=== PATIENT | male | born 1930 | race Hispanic/Latino ===

== ENCOUNTER 2016-09-11 15:57 | Inpatient (IN) | payer MEDICARE ==
--- NOTE | 2016-09-11 16:06 | Emergency Department Report ---
HPI - General Time Seen by Provider: 09/11/16 16:01 - HPI HPI: This is a 86-year-old male presents to the emergency department by EMS from dialysis, where he just completed his dialysis session, with the complaint of an unresponsive episode. The patient appeared unresponsive to the dialysis staff so they started doing chest compressions on him but there is no actual report of the patient going pulseless. Once the patient began becoming slightly more responsive, EMS was there. He presents awake, verbal, with a nonrebreather on but signs of hypoxia. Other than supplement oxygen, he did not receive any treatment in route, was found to have a pulse ox in the high 70s. He is end-stage renal disease on hemodialysis on Friday, Friday and Friday. He also has history of hypertension, CHF. Patient denies any physical complaints at this time. ED Past Medical Hx - Past Medical History Hx Congestive Heart Failure: Yes Hx Renal Disease: Yes (Dialysis: , and FRI) Hx COPD: Yes Additional medical history: pacemaker/defib - Surgical History Hx Open Heart Surgery: Yes (2003) Hx Internal Defibrillator: Yes Additional Surgical History: open heart surgery (2003) - Social History Smoking Status: Current Every Day Smoker - Medications Home Medications: Home Medications Medication Instructions Recorded Confirmed Last Taken Type Amiodarone [Cordarone 200 MG TAB] 200 mg PO DAILY 12/13/13 09/11/16 12/13/13 History Aspirin EC [Aspirin Enteric Coated 81 mg PO QDAY 12/13/13 09/11/16 12/13/13 History TAB] Calcium Acetate 667 mg PO TID 12/13/13 09/11/16 12/13/13 History Carvedilol [Coreg] 6.25 mg PO BID 12/13/13 09/11/16 12/13/13 History Rosuvastatin (Nf) [Crestor] 20 mg PO QHS 12/13/13 09/11/16 12/13/13 History Solifenacin Succinate [Vesicare] 5 mg PO DAILY 12/13/13 09/11/16 12/13/13 History Tamsulosin [Flomax] 0.4 mg PO DAILY 12/13/13 09/11/16 12/13/13 History Vit B Cplx #11/FA/C/Biot/Zn Ox 1 tab PO DAILY 12/13/13 09/11/1612/13/14 History [Dialyvite with Zinc Tablet] Tiotropium [Spiriva] 18 mcg IH QDAY #1 box 12/18/13 09/11/16 Unknown Rx ED Review of Systems ROS: Stated complaint: BLANKA Other details as noted in HPI Comment: All other systems reviewed and negative Constitutional: denies: chills, fever Eyes: denies: eye pain, eye discharge, vision change ENT: denies: ear pain, throat pain Respiratory: denies: cough, shortness of breath, wheezing Cardiovascular: denies: chest pain, palpitations Gastrointestinal: denies: abdominal pain, nausea, diarrhea Genitourinary: denies: urgency, dysuria Musculoskeletal: denies: back pain, joint swelling, arthralgia Skin: denies: rash, lesions Neurological: denies: headache, paresthesias Physical Exam - Physical Exam Physical Exam: GENERAL: The patient is well-developed well-nourished. HEENT: Normocephalic. Atraumatic. Extraocular motions are intact. Patient has moist mucous membranes. Pupils equal reactive to light bilaterally. NECK: Supple. Trachea is midline. CHEST/LUNGS: Slightly coarse breath sounds throughout the chest. There is tachypnea and some supraclavicular accessory muscle use. There is some respiratory distress noted. HEART/CARDIOVASCULAR: Regular. There is mild tachycardia. There is no gallop rub or murmur. ABDOMEN: Abdomen is soft, nontender. Patient has normal bowel sounds. There is no abdominal distention. SKIN: Skin is warm and dry. NEURO: The patient is awake, alert but patient appears fatigued the patient is cooperative. The patient has no focal neurologic deficits. The patient has normal speech. MUSCULOSKELETAL: There is no tenderness or deformity. There is no limitation range of motion. There is no evidence of acute injury. There is a right upper extremity dialysis fistula with tubing still in place. - ABG Interpretation Ph: 7.322 PCO2: 69 PO2: 113 Bicarbonate: 35 Interpretation: respiratory acidosis - EJ/Peripheral Line Neck L Time Out Performed: Yes Indications: nurses unable to establis Skin Cleansed in Sterile Fashion: Yes Size: 20 Dressing Placed: Tegaderm, tape Patient Tolerated Procedure: well ED Medical Decision Making - Lab Data Result diagrams: 09/11/16 16:22 09/11/16 16:22 - EKG Data -: EKG Interpreted by Me EKG shows normal: sinus rhythm, axis (left axis deviation), intervals ( nonspecific intraventricular block), QRS complexes (Q waves to the inferior leads), ST-T waves Rate: normal - EKG Data When compared to previous EKG there are: changes noted (previous EKG looks similar but with patient's current respiratory distress he has an abnormal appearing rhythm that is probably artifact) Interpretation: other (left axis deviation, nonspecific intraventricular block, Q waves in inferior leads) - Radiology Data Radiology results: report reviewed, image reviewed interpreted by me: Chest x-ray shows some mild cardiomegaly and some pulmonary vascular congestion but no obvious pneumonia. Bilateral small pleural effusions. CT the head without contrast does not show any bleed, shift, mass or any acute process. 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 Microangiopathic ischemic microvascular disease. Ventilation perfusion scan is negative for pulmonary embolism. - Medical Decision Making 86-year-old male presents from dialysis after having an unresponsive episode and presenting and shortness of breath and some respiratory distress with some hypoxia. Patient was placed on a nonrebreather with some improvement but eventually was placed on a BiPAP machine. His ABG showed some respiratory acidosis. BiPAP numbers were changed and it repeated and he is showing improvement. Patient had elevated d-dimer so a VQ scan was done that was negative for pulmonary embolism. Chest x-ray shows some bilateral pleural effusions. Patient has an elevated d-dimer but is end-stage renal disease. Patient also has a 22,000 white count and some anemia but does not require transfusion and no obvious infection seen. Patient will be admitted to hospital for further evaluation and treatment has been accepted for admission by the hospitalist, Dr. Josue. - Differential Diagnosis COPD, asthma, pneumonia, PE, MO, CHF Critical Care Time: Yes Critical care time in (mins) excluding proc time.: 35 Critical care attestation.: If time is entered above; I have spent that time in minutes in the direct care of this critically ill patient, excluding procedure time. Critical care time spent on this patient and during his initial evaluation, multiple re-evaluations , ordering and interpretation of labs, ordering and evaluation of imaging, BiPAP management, consultation with hospitalist and discussion plain. Critical Care Time: 35 mins ED Disposition Clinical Impression: ESRD (end stage renal disease), Respiratory acidosis COPD (chronic obstructive pulmonary disease) Qualifiers: COPD type: unspecified COPD Qualified Code(s): J44.9 - Chronic obstructive pulmonary disease, unspecified Respiratory failure Qualifiers: Chronicity: unspecified Respiratory failure complication: hypoxia Qualified Code(s): J96.91 - Respiratory failure, unspecified with hypoxia Congestive heart failure (CHF) Qualifiers: Congestive heart failure type: unspecified congestive heart failure type Congestive heart failure chronicity: acute on chronic Qualified Code(s): I50.9 - Heart failure, unspecified Anemia Qualifiers: Anemia type: unspecified type Qualified Code(s): D64.9 - Anemia, unspecified Disposition: DC-09 OP ADMIT IP TO THIS HOSP Is pt being admited?: Yes Condition: Critical Time of Disposition: 21:52
--- NOTE | 2016-09-11 16:31 | Admit Criteria Form ---
Admission Criteria Documentation: RESPIRATORY FAILURE GRG Clinical Indications for Admission to Inpatient Care (Place 'X' for any and all applicable criteria): Hospital admission is needed for appropriate care of the patient because of acute respiratory failure or insufficiency as indicated by ANY ONE of the following(1)(2)(3)(4)(5)(6)(7)(8): [ ]I. Mechanical ventilation needed (acute invasive or noninvasive) [X]II. Severe ventilation deficit as indicated by ANY ONE of the following (9) [X]a) Respiratory acidosis (pH less than 7.32 and partial pressure of carbon dioxide greater than 40 mm Hg (5.3 kPa)) [X]b) Partial pressure of carbon dioxide greater than 44 mm Hg (5.9 kPa ) (new) [ ]c) Airflow measurements less than 25% of predicted (eg, peak expiratory flow rate less than 100 L/minute) [ ]d) Forced vital capacity less than 15 mL/kg of ideal body weight, or 50% decrease in vital capacity from baseline [ ]III. Noncardiac pulmonary edema not resolving with rapid emergency treatment (8) [ ]IV. Severe respiratory distress as indicated by ANY ONE of the following: [ ]a) Severe tachypnea (respiratory rate greater than 30, greater than 45 for 6-month-old, greater than 60 for ) [ ]b) Severe hypoxemia (partial pressure of oxygen less than 50 mm Hg ( 6.7 kPa) on greater than 50% oxygen or partial pressure of oxygen to FIO2 ratio less than 200) [ ]c) Mental status deterioration from respiratory disease [ ]V. Airway obstruction or inadequate protection [A](10)(11) The original [employer] content created by [employer] has been revised. The portions of the content which have been revised are identified through the use of italic text or in bold, and [facility] [employer] has neither reviewed nor approved the modified material. All other unmodified content is copyright [employer]. Please see references footnoted in the original [employer] edition 2016 Admission Criteria Met: Yes
[2016-09-11 16:36] LABS: Hemoglobin 9.9 gm/dl (11.8-15.2); Mean Corpuscular HGB Conc 31 % (32-34); Mean Corpuscular Hemoglobin 30 pg (28-32); Mean Corpuscular Volume 97 fl (84-94); Platelet Count 178 K/mm3 (140-440); Red Blood Count 3.29 M/mm3 (3.65-5.03)
[2016-09-11 16:51] LABS: INR 1.32 (0.87-1.13)
[2016-09-11 16:52] LABS: Partial Thromboplastin Time 29.7 Sec. (24.2-36.6)
[2016-09-11 16:54] LABS: Creatine Kinase MB 2.1 ng/mL (0.0-4.0)
[2016-09-11 16:55] LABS: Albumin 3.1 g/dL (3.9-5); Albumin/Globulin Ratio 1.3 %; BUN/Creatinine Ratio 5.23; Bilirubin,Total 0.5 mg/dL (0.1-1.2); Chloride 101.1 mmol/L (98-107); Potassium 3.8 mmol/L (3.6-5.0); Total Protein 5.5 g/dL (6.3-8.2)
[2016-09-11 16:56] LABS: Red Cell Distribution Width 20.7 % (13.2-15.2); White Blood Count 22.7 K/mm3 (4.5-11.0)
[2016-09-11 17:28] LABS: ISTAT Base Excess 5; ISTAT HCO3 32.9; ISTAT PCO2 79.1 (35-45); ISTAT PH 7.227 (7.35-7.45); ISTAT PO2 131 (80-105); ISTAT SO2 98; ISTAT TCO2 35
[2016-09-11 17:53] LABS: Basophils % (Manual) 0 % (0.0-1.8); Blastocytes % (Manual) 0 %; Eosinophils % (Manual) 0 % (0.0-4.3)
[2016-09-11 17:55] LABS: Anisocytosis 1+; Diff Status Complete; Elliptocytes 1+; Platelet Estimate Consistent w Auto; Poikilocytosis 1+
[2016-09-11 18:01] LABS: ISTAT Base Excess 10; ISTAT HCO3 35.8; ISTAT PCO2 69.2 (35-45); ISTAT PH 7.322 (7.35-7.45); ISTAT PO2 113 (80-105); ISTAT SO2 98; ISTAT TCO2 38
[2016-09-11] MEDS ORDERED: TYLENOL PO PRN (19:47)
[2016-09-11] MEDS ORDERED: MILK OF MAGNESIA PO PRN (19:47)
[2016-09-11] MEDS ORDERED: DULCOLAX PR PRN (19:47)
[2016-09-11] MEDS ORDERED: ZOFRAN IV PRN (19:47)
[2016-09-11] MEDS ORDERED: NACL 0.9% 1000 ML 1,000 ML IV ONE (19:52)
[2016-09-11] MEDS ORDERED: NACL 0.9% 1000 ML IV ONE (19:52)
[2016-09-11] MEDS ORDERED: SODIUM CHLORIDE FLUSH SYRINGE 10 ML IV PRN (19:54)
[2016-09-11] MEDS ORDERED: VANCOMYCIN PHARMACY TO DOSE IV SCH (20:00)
--- NOTE | 2016-09-11 20:53 | History and Physical Report ---
History of Present Illness Chief complaint: Unresponsive History of present illness: 86 YO Male with ESRD on HD(M,W,F), CHF, COPD, CAD S/P CABG, Nicotine Dependence presents to ED for evaluation. Pt unable to provide history, History taken from ED staff and patient chart. Pt became unresponsive after his dialysis session today. Dialysis staff initiated CPR, and after chest compressions the patient regained consciousness. Pt became unresponsive again, but EMS was on the scene at this time. Pt found to be hypoxemic with Sao2 in the 70's, and in respiratory distress. Pt transported to [facility] ED for evaluation and treatment. Pt seen and evaluated in ED and found to be in respiratory distress but was able to protect his airway. Pt placed on NIPPV. No reports of fever, chills, CP, Palpitaitons, Falls, Syncope, Trauma, BRBPR, leg swelling, calf pain, prolonged travel/immobility, individual/family history of DVT/PE, productive cough, or recent ill contacts. Past History Past Medical History: CAD, COPD, dialysis, ESRD, heart failure Past Surgical History: Other (ICD, Pacemaker) Social history: , lives with family, smoking. denies: alcohol abuse, prescription drug abuse Family history: hypertension Medications and Allergies Allergies Allergy/AdvReac Type Severity Reaction Status Date / Time No Known Allergies Allergy Unverified 12/13/13 19:01 Home Medications Medication Instructions Recorded Confirmed Last Taken Type Amiodarone [Cordarone 200 MG TAB] 200 mg PO DAILY 12/13/13 09/11/16 12/13/13 History Aspirin EC [Aspirin Enteric Coated 81 mg PO QDAY 12/13/13 09/11/16 12/13/13 History TAB] Calcium Acetate 667 mg PO TID 12/13/13 09/11/16 12/13/13 History Carvedilol [Coreg] 6.25 mg PO BID 12/13/13 09/11/16 12/13/13 History Rosuvastatin (Nf) [Crestor] 20 mg PO QHS 12/13/13 09/11/16 12/13/13 History Solifenacin Succinate [Vesicare] 5 mg PO DAILY 12/13/13 09/11/16 12/13/13 History Tamsulosin [Flomax] 0.4 mg PO DAILY 12/13/13 09/11/16 12/13/13 History Vit B Cplx #11/FA/C/Biot/Zn Ox 1 tab PO DAILY 12/13/13 09/11/16 12/13/13 History [Dialyvite with Zinc Tablet] Tiotropium [Spiriva] 18 mcg IH QDAY #1 box 12/18/13 09/11/16 Unknown Rx Active Meds: Active Medications Acetaminophen (Tylenol) 650 mg PO Q4H PRN PRN Reason: Pain MILD(1-3)/Fever >100.5/WALTERS Bisacodyl (Dulcolax) 10 mg OR QDAY PRN PRN Reason: Constipation unrelieved by MOM Levofloxacin/Dextrose (Levaquin 750mg/150ml) 750 mg in 150 mls @ 100 mls/hr IV Q24HR ISAAK PRN Reason: Protocol Stop: 09/12/16 11:29 Vancomycin HCl 2,000 mg/ (Sodium Chloride) 500 mls @ 334 mls/hr IV ONCE.ED ONE PRN Reason: Protocol Stop: 09/11/16 22:29 Levofloxacin/Dextrose (Levaquin 500mg/100ml) 500 mg in 100 mls @ 100 mls/hr IV Q48HR ISAAK Piperacillin Sod/Tazobactam Sod (Zosyn/Ns 2.25 Gm/50ml) 2.25 gm in 50 mls @ 100 mls/hr IV Q6H ISAAK Magnesium Hydroxide (Milk Of Magnesia) 30 ml PO Q4H PRN PRN Reason: Constipation Ondansetron HCl (Zofran) 4 mg IV Q8H PRN PRN Reason: N/V unrelieved by Reglan Sodium Chloride (Sodium Chloride Flush Syringe 10 Ml) 10 ml IV PRN PRN PRN Reason: LINE FLUSH Vancomycin HCl (Vancomycin Pharmacy To Dose) 1 each IV PKCONSULT ISAAK PRN Reason: Protocol Review of Systems ROS unobtainable: due to mental status Exam - Constitutional Vitals: Temp Pulse Resp BP Pulse Ox 97.6 F 60 24 122/56 100 09/11/16 16:00 09/11/16 19:55 09/11/16 19:55 09/11/16 19:55 09/11/16 20:23 General appearance: Present: severe distress - EENT Eyes: Present: PERRL ENT: hearing decreased - Neck Neck: Present: supple - Respiratory Respiratory: bilateral: diminished, rhonchi - Cardiovascular Rhythm: regular Heart Sounds: Present: S1 & S2 - Extremities Extremities: pulses symmetrical, No edema Extremity abnormal: edema Peripheral Pulses: abnormal (capillary refill: 3 seconds) - Abdominal General gastrointestinal: Present: soft, non-tender, non-distended, normal bowel sounds, other Male genitourinary: Present: normal - Integumentary Integumentary: Present: clear, dry, decreased turgor - Musculoskeletal Musculoskeletal: generalized weakness - Psychiatric Psychiatric: no appropriate mood/affect, no intact judgment & insight, no memory intact, other (stuporous, ) - Neurologic Neurologic: no moves all extremities, no gait normal Results - Labs CBC & Chem 7: 09/11/16 16:22 09/11/16 16:22 Labs: Abnormal lab results 09/11/16 09/11/16 09/11/16 Range/Units 16:22 16:22 16:22 WBC 22.7 H (4.5-11.0) K/mm3 RBC 3.29 L (3.65-5.03) M/mm3 Hgb 9.9 L (11.8-15.2) gm/dl Hct 32.0 L (35.5-45.6) % MCV 97 H (84-94) fl MCHC 31 L (32-34) % RDW 20.7 H (13.2-15.2) % Lymphocytes % (Manual) 1.0 L (13.4-35.0) % Seg Neutrophils # Man 12.0 H (1.8-7.7) K/mm3 Lymphocytes # (Manual) 0.2 L (1.2-5.4) K/mm3 PT 16.3 H (12.2-14.9) Sec. INR 1.32 H (0.87-1.13) D-Dimer 3181.50 H (0-234) ng/mlDDU POC ABG pH (7.35-7.45) POC ABG pCO2 (35-45) POC ABG pO2 (80-105) Carbon Dioxide 33 H (22-30) mmol/L Creatinine 2.1 H (0.8-1.5) mg/dL Glucose 119 H (75-100) mg/dL Lactic Acid (0.7-2.0) mmol/L Calcium 8.0 L (8.4-10.2) mg/dL Total Creatine Kinase (55-170) units/L CK-MB (CK-2) Rel Index (0-4) Troponin T (0.00-0.029) ng/mL Total Protein 5.5 L (6.3-8.2) g/dL Albumin 3.1 L (3.9-5) g/dL LDL Cholesterol Direct (50-130) mg/dL 09/11/16 09/11/16 09/11/16 Range/Units 16:22 16:24 17:46 WBC (4.5-11.0) K/mm3 RBC (3.65-5.03) M/mm3 Hgb (11.8-15.2) gm/dl Hct (35.5-45.6) % MCV (84-94) fl MCHC (32-34) % RDW (13.2-15.2) % Lymphocytes % (Manual) (13.4-35.0) % Seg Neutrophils # Man (1.8-7.7) K/mm3 Lymphocytes # (Manual) (1.2-5.4) K/mm3 PT (12.2-14.9) Sec. INR (0.87-1.13) D-Dimer (0-234) ng/mlDDU POC ABG pH 7.227 L 7.322 L (7.35-7.45) POC ABG pCO2 79.1 H 69.2 H (35-45) POC ABG pO2 131 H 113 H (80-105) Carbon Dioxide (22-30) mmol/L Creatinine (0.8-1.5) mg/dL Glucose (75-100) mg/dL Lactic Acid (0.7-2.0) mmol/L Calcium (8.4-10.2) mg/dL Total Creatine Kinase 21 L (55-170) units/L CK-MB (CK-2) Rel Index 10.0 H (0-4) Troponin T 0.073 H (0.00-0.029) ng/mL Total Protein (6.3-8.2) g/dL Albumin (3.9-5) g/dL LDL Cholesterol Direct 17 L (50-130) mg/dL 09/11/16 Range/Units 20:02 WBC (4.5-11.0) K/mm3 RBC (3.65-5.03) M/mm3 Hgb (11.8-15.2) gm/dl Hct (35.5-45.6) % MCV (84-94) fl MCHC (32-34) % RDW (13.2-15.2) % Lymphocytes % (Manual) (13.4-35.0) % Seg Neutrophils # Man (1.8-7.7) K/mm3 Lymphocytes # (Manual) (1.2-5.4) K/mm3 PT (12.2-14.9) Sec. INR (0.87-1.13) D-Dimer (0-234) ng/mlDDU POC ABG pH (7.35-7.45) POC ABG pCO2 (35-45) POC ABG pO2 (80-105) Carbon Dioxide (22-30) mmol/L Creatinine (0.8-1.5) mg/dL Glucose (75-100) mg/dL Lactic Acid 0.50 L (0.7-2.0) mmol/L Calcium (8.4-10.2) mg/dL Total Creatine Kinase (55-170) units/L CK-MB (CK-2) Rel Index (0-4) Troponin T (0.00-0.029) ng/mL Total Protein (6.3-8.2) g/dL Albumin (3.9-5) g/dL LDL Cholesterol Direct (50-130) mg/dL Assessment and Plan - Patient Problems (1) Sepsis Current Visit: Yes Status: Acute Qualifiers: Sepsis type: S Plan to address problem: Sepsis protocol: IV abx, IVF, supportive care, serial lactate, monitor uop q shift, blood cultures, (2) Metabolic encephalopathy Current Visit: Yes Status: Acute Plan to address problem: secondary to sepsis, treat sepsis, repeat bmp in am. (3) Acute and chronic respiratory failure ([id number]) Current Visit: No Status: Acute Qualifiers: Respiratory failure complication: R Plan to address problem: Supplemental oxygen, nebs, aspiration precautions, NIPPV, repeat ABG after 2 hours on bipap, (4) ESRD (end stage renal disease) Current Visit: No Status: Acute Plan to address problem: Nephrology consulted, dialysis as per renal service, bmp in am (5) DVT prophylaxis Current Visit: No Status: Acute
[2016-09-11 20:54] LABS: Creatine Kinase MB 16.9 ng/mL (0.0-4.0)
[2016-09-11] MEDS ORDERED: VANCOMYCIN VIAL 2,000 MG in NACL 0.9% 500 ML 500 ML IV ONE (21:00)
--- NOTE | 2016-09-11 21:06 | XRay Report ---
FINAL REPORT EXAM: XR CHEST 1V AP HISTORY: Dyspnea TECHNIQUE: AP portable view(s) of the chest obtained. PRIORS: None. FINDINGS: No mediastinal shift. Cardiomegaly. Overlying sternotomy wires. Left chest pacemaker. Blunting of both costophrenic angles. Lower lung predominant interstitial thickening. No pneumothorax or acute skeletal finding. Right upper extremity vascular stent. IMPRESSION: Moderate sequela of heart failure including small bilateral pleural effusions. PA and lateral chest radiographic follow-up to resolution is recommended.
--- NOTE | 2016-09-11 21:38 | Nuclear Medicine Report ---
FINAL REPORT EXAM: NM LUNG SCAN PERF/VENT HISTORY: SOB, elevated dimer TECHNIQUE: The nuclear medicine ventilation perfusion study was performed. The patient was given 10 mCi of Xe 133 gas for the ventilation study and 5 mCi of technetium 99m MAA for the perfusion study. Images were acquired in the standard projections. Correlation is made with chest radiograph performed on the same date. PRIORS: None. FINDINGS: There is photopenic area caused by the pacemaker. Otherwise, there is normal distribution of the MAA on the perfusion study. The xenon images demonstrate trapping of the radiotracer in the bilateral lower lung field on delayed images probably due to airway disease. There are no defects. IMPRESSION: Normal perfusion study. Suspect airway disease. No evidence of PE.
--- NOTE | 2016-09-11 21:45 | Cat Scan Report ---
FINAL REPORT EXAM: CT HEAD/BRAIN WO CON HISTORY: unconscious TECHNIQUE: Contiguous axial images of the head were obtained without the use of intravenous contrast. PRIORS: None. FINDINGS: There is focal encephalomalacia in the high right frontal parietal area, in the right frontal area and in the right occipital area consistent with chronic infarcts. There is no evidence of acute infarct or intracranial hemorrhage. There is no mass lesion or mass effect. There are no abnormal extra-axial fluid collections. The ventricles and sulci are prominent consistent with generalized loss of brain substance, appropriate for age. There is deep white matter lucency consistent with chronic microvascular ischemic disease. The visualized skull and orbits are unremarkable. The visualized paranasal sinuses are clear. IMPRESSION: 1. No evidence of acute infarct or intracranial hemorrhage. 2. Multiple chronic right cerebral infarcts. 3. White matter lucency consistent with chronic microvascular ischemic disease.
[2016-09-11] MEDS: COREG PO SCH (22:03)
[2016-09-11] MEDS: ZOSYN/NS 2.25 GM/50ML 2.25 GM/50 ML BAG IV SCH (22:55)
[2016-09-11 23:26] LABS: ISTAT Base Excess 11; ISTAT HCO3 36.5; ISTAT PH 7.385 (7.35-7.45); ISTAT PO2 151 (80-105); ISTAT SO2 99; ISTAT TCO2 38
[2016-09-12] MEDS ORDERED: ZOSYN/NS 4.5GM/100ML 4.5 GM/100 ML VIAL IV SCH
--- NOTE | 2016-09-12 00:44 | Event Note ---
Date: 09/12/16 blood [ressure in 80s pt w/ chf/ esrd, s/p IVF bolus already start levophed drip, upgrade to icu
[2016-09-12 01:39] LABS: Bacteria,Urine 1+ /HPF (Negative); Bilirubin,Urine NEG (Negative); Blood,Urine NEG (Negative); Ketones,Urine NEG (Negative); Leukocyte Esterase,Urine NEG (Negative); Nitrite,Urine NEG (Negative); Urobilinogen,Urine < 2.0 mg/dL (<2.0)
[2016-09-12] MEDS: LEVOPHED 8 MG in NACL 0.9% 250ML 242 ML IV SCH ×2 (03:10→21:14)
--- NOTE | 2016-09-12 03:13 | Procedure Note ---
Date of procedure: 09/12/16 Procedure: Central Line Attending: <__Navarro__> A time-out was completed verifying correct patient, procedure, site, positioning , and special equipment if applicable. The patient was placed in a dependent position appropriate for central line placement based on the vein to be cannulated. The patients right groin was prepped and draped in sterile fashion. 1% Lidocaine was used to anesthetize the surrounding skin area. A triple lumen catheter was introduced into the the right common femoral vein using the Seldinger technique under ultrasound guidance. The catheter was threaded smoothly over the guide wire and appropriate blood return was obtained. Each lumen of the catheter was evacuated of air and flushed with sterile saline. The catheter was then sutured in place to the skin and a sterile dressing applied. Perfusion to the extremity distal to the point of catheter insertion was checked and found to be adequate. Estimated Blood Loss: 20 ml The patient tolerated the procedure well and there were no complications. Condition: stable
[2016-09-12] MEDS: ZOSYN/NS 2.25 GM/50ML 2.25 GM/50 ML BAG IV SCH ×3 (04:35→22:02)
[2016-09-12] MEDS ORDERED: CORDARONE PO SCH (10:00)
[2016-09-12] MEDS: PHOSLO PO SCH ×2 (10:00→17:12)
[2016-09-12] MEDS ORDERED: LEVAQUIN 750MG/150ML 750 MG/150 ML BAG IV SCH (10:00)
[2016-09-12] MEDS ORDERED: NON-FORMULARY (Solifenacin Succinate [Vesicare] 5 MG) PO SCH (10:00)
[2016-09-12] MEDS: COREG PO SCH (11:00)
[2016-09-12 11:01] LABS: Creatine Kinase MB 1.9 ng/mL (0.0-4.0)
--- NOTE | 2016-09-12 12:32 | Consultation ---
History of Present Illness - Reason for Consult Consult date: 09/12/16 Hypotension, requiring vasopressor therapy Requesting physician: TIM GARZA - History of Present Illness 86 y/o male admitted with hypotension and altered mental status of unknown origin. Became hypotensive during dialysis. Found to be hypercapnic and placed on bipap. Right femoral line placed and started on levophed. Currently on 7.5 now. Patient mildly confused but awake. Currently on full face bipap mask. Past History Past Medical History: CAD, COPD, dialysis, ESRD, heart failure Past Surgical History: Other (ICD, Pacemaker) Social history: , lives with family, smoking. denies: alcohol abuse, prescription drug abuse Family history: hypertension Medications and Allergies Allergies Allergy/AdvReac Type Severity Reaction Status Date / Time No Known Allergies Allergy Unverified 12/13/13 19:01 Home Medications Medication Instructions Recorded Confirmed Last Taken Type Amiodarone [Cordarone 200 MG TAB] 200 mg PO DAILY 12/13/13 09/11/16 12/13/13 History Aspirin EC [Aspirin Enteric Coated 81 mg PO QDAY 12/13/13 09/11/16 12/13/13 History TAB] Calcium Acetate 667 mg PO TID 12/13/13 09/11/16 12/13/13 History Carvedilol [Coreg] 6.25 mg PO BID 12/13/13 09/11/16 12/13/13 History Rosuvastatin (Nf) [Crestor] 20 mg PO QHS 12/13/13 09/11/16 12/13/13 History Solifenacin Succinate [Vesicare] 5 mg PO DAILY 12/13/13 09/11/16 12/13/13 History Tamsulosin [Flomax] 0.4 mg PO DAILY 12/13/13 09/11/16 12/13/13 History Vit B Cplx #11/FA/C/Biot/Zn Ox 1 tab PO DAILY 12/13/13 09/11/16 12/13/13 History [Dialyvite with Zinc Tablet] Tiotropium [Spiriva] 18 mcg IH QDAY #1 box 12/18/13 09/11/16 Unknown Rx Active Meds: Active Medications Acetaminophen (Tylenol) 650 mg PO Q4H PRN PRN Reason: Pain MILD(1-3)/Fever >100.5/[place] Amiodarone HCl (Cordarone) 200 mg PO DAILY [facility] Aspirin (Halfprin Ec) 81 mg PO QDAY [facility] Atorvastatin Calcium (Lipitor) 40 mg PO QHS [facility] Last Admin: 09/12/16 00:05 Dose: Not Given Bisacodyl (Dulcolax) 10 mg [place] QDAY PRN PRN Reason: Constipation unrelieved by [facility] Calcium Acetate (Phoslo) 667 mg PO TIDWM [facility] Carvedilol (Coreg) 6.25 mg PO BID [facility] Last Admin: 09/12/16 11:00 Dose: Not Given Levofloxacin/Dextrose (Levaquin 500mg/100ml) 500 mg in 100 mls @ 100 mls/hr IV Q48HR [facility] Norepinephrine 8 mg/ Sodium (Chloride) 250 mls @ 3.75 mls/hr IV TITR ISAAK; 2 MCG /MIN PRN Reason: Protocol Last Titration: 09/12/16 06:26 Dose: 8 mcg/min, 15 mls/hr Piperacillin Sod/Tazobactam Sod (Zosyn/Ns 2.25 Gm/50ml) 2.25 gm in 50 mls @ 100 mls/hr IV Q8HR [facility] Magnesium Hydroxide (Milk Of Magnesia) 30 ml PO Q4H PRN PRN Reason: Constipation Miscellaneous Medication (Solifenacin Succinate [Vesicare]) 5 mg PO DAILY [facility] Multivit/Ca Carb/B Cmplx/FA/Prenat (Renal Caps) 1 cap PO QDAY [facility] Ondansetron HCl (Zofran) 4 mg IV Q8H PRN PRN Reason: N/V unrelieved by [facility] Sodium Chloride (Sodium Chloride Flush Syringe 10 Ml) 10 ml IV PRN PRN PRN Reason: LINE FLUSH Tamsulosin HCl (Flomax) 0.4 mg PO DAILY [facility] Tiotropium [place] (Spiriva) 1 puff IH QDAY [facility] Vancomycin HCl (Vancomycin Pharmacy To Dose) 1 each IV PKCONSULT ISAAK PRN Reason: Protocol Review of Systems ROS unobtainable: due to mental status Exam - Constitutional Vitals: Temp Pulse Resp BP Pulse Ox 97.7 F 65 17 122/40 96 09/12/16 06:28 09/12/16 11:00 09/12/16 06:28 09/12/16 11:00 06/08/17 06:28 General appearance: Present: no acute distress, well-nourished, other (alert) - EENT Eyes: Present: PERRL, EOM intact ENT: hearing intact - Neck Neck: Present: supple - Respiratory Respiratory effort: normal Respiratory: bilateral: CTA - Cardiovascular Rhythm: regular Heart Sounds: Present: S1 & S2 - Extremities Extremities: no ischemia - Abdominal General gastrointestinal: Present: soft Male genitourinary: Present: deferred - Rectal Rectal Exam: deferred Results - Labs CBC & Chem 7: 09/13/16 05:10 09/13/16 05:10 Labs: Abnormal lab results 09/11/16 09/11/16 09/11/16 Range/Units 20:02 20:02 23:16 POC ABG pCO2 61.0 H (35-45) POC ABG pO2 151 H (80-105) Lactic Acid 0.50 L (0.7-2.0) mmol/L Total Creatine Kinase 983 H (55-170) units/L CK-MB (CK-2) 16.9 H (0.0-4.0) ng/mL CK-MB (CK-2) Rel Index (0-4) Troponin T 0.053 H D (0.00-0.029) ng/mL 09/12/16 09/12/16 Range/Units 10:14 10:14 POC ABG pCO2 (35-45) POC ABG pO2 (80-105) Lactic Acid 0.60 L (0.7-2.0) mmol/L Total Creatine Kinase 11 L (55-170) units/L CK-MB (CK-2) (0.0-4.0) ng/mL CK-MB (CK-2) Rel Index 17.2 H (0-4) Troponin T 0.071 H D (0.00-0.029) ng/mL - Imaging and Cardiology Chest x-ray: image reviewed (cardiomegaly with small bilateral pleural effusion) Assessment and Plan 86 y/o male with acute hypercapnic respiratory failure, hypotension and ESRD and acidemia. 1. Wean Pressors for MAPS>65. Unsure of cause of hypotension currently. Patient has an echo pending read. Per nursing HD, is scheduled for today so will not give volume 2. Hypotension is likely related to acidemia, combination of respiratory and renal causes. Increased bipap IPAP to increase delta P. Will repeat ABG this am. Currently patient is awake and can protect his airway. Sats should be between 88-92. No acute indication for intubation at this time. 3. Hold all BP meds 4. consider holding flomax as well given hypotension at this time 5. Hold on Picc line given renal disease, continue femoral line 6. Continue broad spec abx therapy for now 7. Will restart spiriva and add PRN nebs. CCT 31 minutes.
[2016-09-12] MEDS: FLOMAX PO SCH (13:13)
[2016-09-12] MEDS: HALFPRIN EC PO SCH (13:13)
[2016-09-12] MEDS: Renal Caps PO SCH (13:13)
[2016-09-12] MEDS ORDERED: LEVOPHED DRIP 4 MG/NS 250 ML 0 MG/0 ML BAG IV ONE (14:53)
--- NOTE | 2016-09-12 18:55 | Progress Note ---
Assessment and Plan Assessment and plan: --Sepsis/leukocytosis Continue IV fluids, IV antibiotics, follow cultures --Septic shock requiring pressors Titrate systolic blood pressures more than 100, supportive care --Chronic respiratory failure requiring noninvasive ventilation Continue oxygen, titrated to O2 sats more than 90%, nebulizers, IV antibiotics Pulmonary following --End-stage renal disease on hemodialysis Consult nephrology, hemodialysis per schedule --Hypertension; patient is hypotensive Hold all antihypertensive medications --History of coronary artery disease is post CABG Patient has mild elevation of troponins, probably secondary to end-stage renal disease, closely monitor, consider cardiology evaluation if needed --History of congestive heart failure/systolic continue current cardiac medications, hemodialysis per schedule --Dyslipidemia; continue statin --Full CODE STATUS Closely monitor the patient and adjust the management as needed History Interval history: Patient seen and evaluated ER awaiting room assignment ,medical records reviewed Patient remains hypotensive on Levophed Receiving Ventimask oxygen saturating 95-96 percent Patient alert and awake responding to simple questions Denies chest pain or shortness of breath Hospitalist Physical - Constitutional Vitals: Temp Pulse Resp BP Pulse Ox 97.7 F 65 17 122/40 96 09/12/16 06:28 09/12/16 11:00 09/12/16 06:28 09/12/16 11:00 09/12/16 06:28 General appearance: Present: no acute distress, well-nourished, other (on ventimask) - EENT Eyes: Present: PERRL, EOM intact - Neck Neck: Present: supple, normal ROM - Respiratory Respiratory effort: normal Respiratory: bilateral: diminished, rhonchi - Cardiovascular Rhythm: regular Heart Sounds: Present: S1 & S2 - Extremities Extremities: no ischemia, pulses intact, pulses symmetrical Peripheral Pulses: within normal limits - Abdominal General gastrointestinal: soft, non-tender, non-distended, normal bowel sounds - Integumentary Integumentary: Present: clear, warm - Psychiatric Psychiatric: appropriate mood/affect, other (confused at times) - Neurologic Neurologic: CNII-XII intact, moves all extremities Results - Labs CBC & Chem 7: 09/11/16 16:22 09/11/16 16:22 Labs: Laboratory Last Values WBC 22.7 K/mm3 (4.5-11.0) H 09/11/16 16:22 RBC 3.29 M/mm3 (3.65-5.03) L 09/11/16 16:22 Hgb 9.9 gm/dl (11.8-15.2) L 09/11/16 16:22 Hct 32.0 % (35.5-45.6) L 09/11/16 16:22 MCV 97 fl (84-94) H 09/11/16 16:22 MCH 30 pg (28-32) 09/11/16 16:22 MCHC 31 % (32-34) L 09/11/16 16:22 RDW 20.7 % (13.2-15.2) H 09/11/16 16:22 Plt Count 178 K/mm3 (140-440) 09/11/16 16:22 Add Manual Diff Complete 09/11/16 16:22 Total Counted 100 09/11/16 16:22 Seg Neutrophils % Nozzle Tender 09/11/16 16:22 Seg Neuts % (Manual) 53.0 % (40.0-70.0) 09/11/16 16:22 Band Neutrophils % 43.0 % 09/11/16 16:22 Lymphocytes % (Manual) 1.0 % (13.4-35.0) L 09/11/16 16:22 Reactive Lymphs % (Man) 0 % 09/11/16 16:22 Monocytes % (Manual) 3.0 % (0.0-7.3) 09/11/16 16:22 Eosinophils % (Manual) 0 % (0.0-4.3) 09/11/16 16:22 Basophils % (Manual) 0 % (0.0-1.8) 09/11/16 16:22 Metamyelocytes % 0 % 09/11/16 16:22 Myelocytes % 0 % 09/11/16 16:22 Promyelocytes % 0 % 09/11/16 16:22 Blast Cells % 0 % 09/11/16 16:22 Nucleated RBC % Not Reportable 09/11/16 16:22 Seg Neutrophils # Man 12.0 K/mm3 (1.8-7.7) H 09/11/16 16:22 Band Neutrophils # 9.8 K/mm3 09/11/16 16:22 Lymphocytes # (Manual) 0.2 K/mm3 (1.2-5.4) L 09/11/16 16:22 Abs React Lymphs (Man) 0.0 K/mm3 09/11/16 16:22 Monocytes # (Manual) 0.7 K/mm3 (0.0-0.8) 09/11/16 16:22 Eosinophils # (Manual) 0.0 K/mm3 (0.0-0.4) 09/11/16 16:22 Basophils # (Manual) 0.0 K/mm3 (0.0-0.1) 09/11/16 16:22 Metamyelocytes # 0.0 K/mm3 09/11/16 16:22 Myelocytes # 0.0 K/mm3 09/11/16 16:22 Promyelocytes # 0.0 K/mm3 09/11/16 16:22 Blast Cells # 0.0 K/mm3 09/11/16 16:22 WBC Morphology Not Reportable 09/11/16 16:22 Hypersegmented Neuts Not Reportable 09/11/16 16:22 Hyposegmented Neuts Not Reportable 09/11/16 16:22 Hypogranular Neuts Not Reportable 09/11/16 16:22 Smudge Cells Not Reportable 09/11/16 16:22 Toxic Granulation Not Reportable 09/11/16 16:22 Toxic Vacuolation Not Reportable 09/11/16 16:22 Dohle Bodies Not Reportable 09/11/16 16:22 Pelger-Huet Anomaly Not Reportable 09/11/16 16:22 Maia Rods Not Reportable 09/11/16 16:22 Platelet Estimate Consistent w auto 09/11/16 16:22 Clumped Platelets Not Reportable 09/11/16 16:22 Plt Clumps, EDTA Not Reportable 09/11/16 16:22 Large Platelets Not Reportable 09/11/16 16:22 Giant Platelets Not Reportable 09/11/16 16:22 Platelet Satelliting Not Reportable 09/11/16 16:22 Plt Morphology Comment Not Reportable 09/11/16 16:22 RBC Morphology Not Reportable 09/11/16 16:22 Dimorphic RBCs Not Reportable 09/11/16 16:22 Polychromasia Not Reportable 09/11/16 16:22 Hypochromasia Not Reportable 09/11/16 16:22 Poikilocytosis 1+ 09/11/16 16:22 Anisocytosis 1+ 09/11/16 16:22 Microcytosis Not Reportable 09/11/16 16:22 Macrocytosis Not Reportable 09/11/16 16:22 Spherocytes Not Reportable 09/11/16 16:22 Pappenheimer Bodies Not Reportable 09/11/16 16:22 Sickle Cells Not Reportable 09/11/16 16:22 Target Cells Not Reportable 09/11/16 16:22 Tear Drop Cells Not Reportable 09/11/16 16:22 Ovalocytes Not Reportable 09/11/16 16:22 Helmet Cells Not Reportable 09/11/16 16:[address] [place] Bodies Not Reportable 09/11/16 16:22 [place] Rings Not Reportable 09/11/16 16:22 [place] Cells Not Reportable 09/11/16 16:22 Bite Cells Not Reportable 09/11/16 16:22 Crenated Cell Not Reportable 09/11/16 16:22 Elliptocytes 1+ 09/11/16 16:22 Acanthocytes (Spur) Not Reportable 09/11/16 16:22 Rouleaux Not Reportable 09/11/16 16:22 Hemoglobin C Crystals Not Reportable 09/11/16 16:22 Schistocytes Not Reportable 09/11/16 16:22 Malaria parasites Not Reportable 09/11/16 16:22 Nirav Bodies Not Reportable 09/11/16 16:22 Hem Pathologist Commnt No 09/11/16 16:22 PT 16.3 Sec. (12.2-14.9) H 09/11/16 16:22 INR 1.32 (0.87-1.13) H 09/11/16 16:22 APTT 29.7 Sec. (24.2-36.6) 09/11/16 16:22 D-Dimer 3181.50 ng/mlDDU (0-234) H 09/11/16 16:22 POC ABG pH 7.385 (7.35-7.45) 09/11/16 23:16 POC ABG pCO2 61.0 (35-45) H 09/11/16 23:16 POC ABG pO2 151 (80-105) H 09/11/16 23:16 POC ABG HCO3 36.5 09/11/16 23:16 POC ABG Total CO2 38 09/11/16 23:16 POC ABG O2 Sat 99 09/11/16 23:16 POC ABG Base Excess 11 09/11/16 23:16 FiO2 50 % 09/11/16 23:16 Sodium 143 mmol/L (137-145) 09/11/16 16:22 Potassium 3.8 mmol/L (3.6-5.0) 09/11/16 16:22 Chloride 101.1 mmol/L (98-107) 09/11/16 16:22 Carbon Dioxide 33 mmol/L (22-30) H 09/11/16 16:22 Anion Gap 13 mmol/L 09/11/16 16:22 BUN 11 mg/dL (9-20) 09/11/16 16:22 Creatinine 2.1 mg/dL (0.8-1.5) H 09/11/16 16:22 Estimated GFR 30 ml/min 09/11/16 16:22 BUN/Creatinine Ratio 5.23 % 09/11/16 16:22 Glucose 119 mg/dL (75-100) H 09/11/16 16:22 POC Glucose 85 (70-105) 09/11/16 22:50 Lactic Acid 0.60 mmol/L (0.7-2.0) L 09/12/16 10:14 Calcium 8.0 mg/dL (8.4-10.2) L 09/11/16 16:22 Total Bilirubin 0.50 mg/dL (0.1-1.2) 09/11/16 16:22 AST 19 units/L (5-40) 09/11/16 16:22 ALT 20 units/L (7-56) 09/11/16 16:22 Alkaline Phosphatase 76 units/L (35-129) 09/11/16 16:22 Total Creatine Kinase 11 units/L (55-170) L 09/12/16 10:14 CK-MB (CK-2) 1.9 ng/mL (0.0-4.0) 09/12/16 10:14 CK-MB (CK-2) Rel Index 17.2 (0-4) H 09/12/16 10:14 Troponin T 0.071 ng/mL (0.00-0.029) H D 09/12/16 10:14 Total Protein 5.5 g/dL (6.3-8.2) L 09/11/16 16:22 Albumin 3.1 g/dL (3.9-5) L 09/11/16 16:22 Albumin/Globulin Ratio 1.3 % 09/11/16 16:22 Triglycerides 85 mg/dL (2-149) 09/11/16 16:22 Cholesterol 77 mg/dL (50-199) 09/11/16 16:22 LDL Cholesterol Direct 17 mg/dL (50-130) L 09/11/16 16:22 HDL Cholesterol 43 mg/dL (40-59) 09/11/16 16:22 Cholesterol/HDL Ratio 1.79 % 09/11/16 16:22 Urine Color Yellow (Yellow) 09/12/16 01:03 Urine Turbidity Clear (Clear) 09/12/16 01:03 Urine pH 6.0 (5.0-7.0) 09/12/16 01:03 Ur Specific [place] 1.010 (1.003-1.030) 09/12/16 01:03 Urine Protein 30 mg/dl mg/dL (Negative) 09/12/16 01:03 Urine Glucose (UA) 50 mg/dL (Negative) 09/12/16 01:03 Urine Ketones Neg mg/dL (Negative) 09/12/16 01:03 Urine Blood Neg (Negative) 09/12/16 01:03 Urine Nitrite Neg (Negative) 09/12/16 01:03 Urine Bilirubin Neg (Negative) 09/12/16 01:03 Urine Urobilinogen < 2.0 mg/dL (<2.0) 09/12/16 01:03 Ur Leukocyte Esterase Neg (Negative) 09/12/16 01:03 Urine WBC (Auto) 4.0 /HPF (0.0-6.0) 09/12/16 01:03 Urine RBC (Auto) 5.0 /HPF (0.0-6.0) 09/12/16 01:03 U Epithel Cells (Auto) < 1.0 /HPF (0-13.0) 09/12/16 01:03 Urine Bacteria (Auto) 1+ /HPF (Negative) 09/12/16 01:03
[2016-09-13 05:05] LABS: ISTAT Base Excess 2; ISTAT HCO3 30.3; ISTAT PCO2 79.8 (35-45); ISTAT PH 7.187 (7.35-7.45); ISTAT PO2 99 (80-105); ISTAT SO2 95; ISTAT TCO2 33
[2016-09-13 06:17] LABS: Basophils % (Auto) 0.6 % (0.0-1.8); Eosinophils % (Auto) 4.5 % (0.0-4.3); Hematocrit 31.9 % (35.5-45.6); Hemoglobin 9.7 gm/dl (11.8-15.2); Mean Corpuscular HGB Conc 30 % (32-34); Mean Corpuscular Hemoglobin 30 pg (28-32); Mean Corpuscular Volume 99 fl (84-94); Platelet Count 138 K/mm3 (140-440); Red Blood Count 3.23 M/mm3 (3.65-5.03); White Blood Count 14.9 K/mm3 (4.5-11.0)
[2016-09-13 06:25] LABS: Red Cell Distribution Width 21.2 % (13.2-15.2)
[2016-09-13 06:44] LABS: Alanine Aminotransferase 14 units/L (7-56); Albumin 2.8 g/dL (3.9-5); Albumin/Globulin Ratio 1.2 %; Alkaline Phosphatase 74 units/L (35-129); Anion Gap 17 mmol/L; BUN/Creatinine Ratio 7.25; Blood Urea Nitrogen 29 mg/dL (9-20); Calcium 8.6 mg/dL (8.4-10.2); Carbon Dioxide 28 mmol/L (22-30); Glucose 74 mg/dL (75-100); Potassium 3.6 mmol/L (3.6-5.0); Sodium 141 mmol/L (137-145); Total Protein 5.2 g/dL (6.3-8.2)
[2016-09-13 06:48] LABS: Bilirubin,Direct < 0.2 mg/dL (0-0.2); Bilirubin,Indirect 0.2 mg/dL
[2016-09-13 07:48] LABS: ISTAT Base Excess 0; ISTAT HCO3 28.7; ISTAT PCO2 77.8 (35-45); ISTAT PH 7.174 (7.35-7.45); ISTAT PO2 83 (80-105); ISTAT SO2 92; ISTAT TCO2 31
[2016-09-13] MEDS: Renal Caps PO SCH (10:52)
[2016-09-13] MEDS: HALFPRIN EC PO SCH (10:52)
[2016-09-13] MEDS: PHOSLO PO SCH ×4 (10:52→18:24)
[2016-09-13 10:57] LABS: ISTAT Base Excess 0; ISTAT HCO3 27.5; ISTAT PCO2 65.2 (35-45); ISTAT PH 7.234 (7.35-7.45); ISTAT PO2 62 (80-105); ISTAT SO2 86; ISTAT TCO2 30
[2016-09-13] MEDS ORDERED: FLUARIX QUAD 2016-2017(36 MOS+) IM ONE (12:00)
[2016-09-13] MEDS ORDERED: PNEUMOVAX 23 IM ONE (12:00)
--- NOTE | 2016-09-13 12:04 | Progress Note ---
Assessment and Plan 86 y/o male with acute hypercapnic respiratory failure, hypotension and ESRD and acidemia. 1. Wean Pressors for MAPS>65. Unsure of cause of hypotension currently. Patient has an echo pending read. Per nursing HD, is scheduled for today so will not give volume 2. Hypotension is likely related to acidemia, combination of respiratory and renal causes. Increased bipap IPAP to increase delta P. Will repeat ABG this afternoon Currently patient is awake and can protect his airway. Sats should be between 88-92. No acute indication for intubation at this time. 3. Hold all BP meds 4. consider holding flomax as well given hypotension at this time 5. Hold on Picc line given renal disease, continue femoral line 6. Continue broad spec abx therapy for now 7. Continue spiriva and add PRN nebs. CCT 31 minutes. Subjective Date of service: 09/13/16 Interval history: CO2 same this am as early am. Increased bipap setting and changed mask. patient is awake and answering some questions appropriately. Still hypotensive Objective Vital Signs - 12hr 09/13/16 09/13/16 09/13/16 00:11 00:21 00:30 Temperature Pulse Rate 64 63 62 Respiratory 21 20 19 Rate Blood Pressure 119/41 110/40 117/39 O2 Sat by Pulse 99 100 100 Oximetry 09/13/16 09/13/16 09/13/16 00:41 00:51 01:01 Temperature Pulse Rate 62 63 62 Respiratory 20 15 27 H Rate Blood Pressure 117/39 119/39 116/44 O2 Sat by Pulse 100 100 100 Oximetry 09/13/16 09/13/16 09/13/16 01:11 01:21 01:30 Temperature Pulse Rate 63 63 62 Respiratory 22 21 18 Rate Blood Pressure 116/44 126/41 129/39 O2 Sat by Pulse 100 99 Oximetry 09/13/16 09/13/16 09/13/16 01:41 01:51 02:00 Temperature Pulse Rate 65 63 62 Respiratory 20 18 19 Rate Blood Pressure 129/39 128/40 131/41 O2 Sat by Pulse 100 100 100 Oximetry 09/13/16 09/13/16 09/13/16 02:11 02:21 02:30 Temperature Pulse Rate 62 62 61 Respiratory 18 19 19 Rate Blood Pressure 131/41 130/40 128/44 O2 Sat by Pulse 100 99 100 Oximetry 09/13/16 09/13/16 09/13/16 02:41 02:51 03:00 Temperature Pulse Rate 60 60 60 Respiratory 18 18 18 Rate Blood Pressure 128/44 110/36 105/37 O2 Sat by Pulse 100 100 100 Oximetry 09/13/16 09/13/16 09/13/16 03:11 03:21 03:30 Temperature Pulse Rate 59 L 60 60 Respiratory 18 18 19 Rate Blood Pressure 105/37 105/36 115/36 O2 Sat by Pulse 100 100 100 Oximetry 09/13/16 09/13/16 09/13/16 03:41 03:51 04:00 Temperature 98.3 F Pulse Rate 60 60 Respiratory 18 16 Rate Blood Pressure 115/36 90/32 O2 Sat by Pulse 99 100 Oximetry 09/13/16 09/13/16 09/13/16 04:01 04:11 04:21 Temperature Pulse Rate 61 66 62 Respiratory 19 20 15 Rate Blood Pressure 111/33 111/33 110/39 O2 Sat by Pulse 100 82 L 99 Oximetry 09/13/16 09/13/16 09/13/16 04:30 04:41 04:51 Temperature Pulse Rate 63 62 63 Respiratory 21 17 21 Rate Blood Pressure 110/38 110/38 114/41 O2 Sat by Pulse 98 98 98 Oximetry 09/13/16 09/13/16 09/13/16 05:00 05:11 05:21 Temperature Pulse Rate 64 62 62 Respiratory 12 22 19 Rate Blood Pressure 110/36 110/36 117/41 O2 Sat by Pulse 97 97 97 Oximetry 09/13/16 09/13/16 09/13/16 05:30 05:41 05:51 Temperature Pulse Rate 63 64 63 Respiratory 20 17 16 Rate Blood Pressure 118/40 118/40 107/42 O2 Sat by Pulse 97 97 96 Oximetry 09/13/16 09/13/16 09/13/16 06:00 06:11 06:21 Temperature Pulse Rate 62 61 64 Respiratory 19 20 21 Rate Blood Pressure 110/38 110/38 119/40 O2 Sat by Pulse 97 97 93 Oximetry 09/13/16 09/13/16 09/13/16 06:30 06:41 06:51 Temperature Pulse Rate 62 62 64 Respiratory 22 19 19 Rate Blood Pressure 113/38 113/38 115/43 O2 Sat by Pulse 94 95 88 Oximetry 0609/13/16 09/13/16 07:00 07:11 07:14 Temperature Pulse Rate 62 62 62 Respiratory 21 25 H 21 Rate Blood Pressure 128/42 128/42 128/42 O2 Sat by Pulse 96 95 97 Oximetry 09/13/16 09/13/16 09/13/16 07:21 07:31 07:35 Temperature Pulse Rate 63 62 61 Respiratory 23 22 22 Rate Blood Pressure 120/41 113/34 113/34 O2 Sat by Pulse 88 91 91 Oximetry 09/13/16 09/13/16 09/13/16 07:40 07:46 07:51 Temperature 97.6 F Pulse Rate 60 60 Respiratory 25 H 19 Rate Blood Pressure 113/34 122/41 O2 Sat by Pulse 92 84 Oximetry 09/13/16 09/13/16 09/13/16 08:00 08:11 08:21 Temperature Pulse Rate 61 59 L 60 Respiratory 22 20 19 Rate Blood Pressure 114/41 114/41 102/34 O2 Sat by Pulse 97 92 92 Oximetry 09/13/16 09/13/16 09/13/16 08:30 08:41 08:51 Temperature Pulse Rate 60 60 60 Respiratory 18 17 20 Rate Blood Pressure 102/34 102/34 104/37 O2 Sat by Pulse 91 89 93 Oximetry 09/13/16 09/13/16 09/13/16 09:00 09:11 09:21 Temperature Pulse Rate 60 60 60 Respiratory 20 21 18 Rate Blood Pressure 104/38 104/38 104/39 O2 Sat by Pulse 93 93 95 Oximetry 09/13/16 09/13/16 09/13/16 09:30 09:41 09:51 Temperature Pulse Rate 60 60 60 Respiratory 19 18 19 Rate Blood Pressure 108/38 108/38 115/43 O2 Sat by Pulse 93 95 95 Oximetry 09/13/16 09/13/16 09/13/16 10:00 10:11 10:21 Temperature Pulse Rate 60 60 62 Respiratory 22 20 21 Rate Blood Pressure 115/38 115/38 109/38 O2 Sat by Pulse 95 95 94 Oximetry 09/13/16 09/13/16 09/13/16 10:23 10:30 10:41 Temperature Pulse Rate 59 L 60 60 Respiratory 20 24 26 H Rate Blood Pressure 109/38 112/36 112/36 O2 Sat by Pulse 97 99 91 Oximetry 09/13/16 09/13/16 10:51 11:00 Temperature Pulse Rate 60 60 Respiratory 24 23 Rate Blood Pressure 111/35 107/33 O2 Sat by Pulse 93 96 Oximetry Constitutional: no acute distress ENT: oropharynx moist Neck: supple Effort: mildly labored Ascultation: Bilateral: clear CBC and BMP: 09/13/16 05:10 09/13/16 05:10 ABG, PT/INR, D-dimer: ABG POC ABG pH 7.234 (7.35-7.45) L 09/13/16 10:42 POC ABG pCO2 65.2 (35-45) H 09/13/16 10:42 POC ABG pO2 62 (80-105) L 09/13/16 10:42 POC ABG HCO3 27.5 09/13/16 10:42 POC ABG Total CO2 30 09/13/16 10:42 POC ABG O2 Sat 86 09/13/16 10:42 PT/INR, D-dimer PT 16.3 Sec. (12.2-14.9) H 09/11/16 16:22 INR 1.32 (0.87-1.13) H 09/11/16 16:22 D-Dimer 3181.50 ng/mlDDU (0-234) H 09/11/16 16:22 Abnormal lab findings: Abnormal Labs 09/11/16 09/11/16 09/11/16 20:02 20:02 23:16 WBC RBC Hgb Hct MCV MCHC RDW Plt Count Lymph % (Auto) Eos % (Auto) Lymph # [place] # Eos # Seg Neutrophils % Seg Neutrophils # POC ABG pH POC ABG pCO2 61.0 H POC ABG pO2 151 H BUN Creatinine Glucose Lactic Acid 0.50 L Total Creatine Kinase 983 H CK-MB (CK-2) 16.9 H CK-MB (CK-2) Rel Index Troponin T 0.053 H D Total Protein Albumin 09/12/16 09/12/16 09/13/16 10:14 10:14 01:11 WBC RBC Hgb Hct MCV MCHC RDW Plt Count Lymph % (Auto) Eos % (Auto) Lymph # [place] # Eos # Seg Neutrophils % Seg Neutrophils # POC ABG pH 7.187 L POC ABG pCO2 79.8 H POC ABG pO2 BUN Creatinine Glucose Lactic Acid 0.60 L Total Creatine Kinase 11 L CK-MB (CK-2) CK-MB (CK-2) Rel Index 17.2 H Troponin T 0.071 H D Total Protein Albumin 09/13/16 09/13/16 09/13/16 05:10 05:10 07:29 WBC 14.9 H RBC 3.23 L Hgb 9.7 L Hct 31.9 L MCV 99 H MCHC 30 L RDW 21.2 H Plt Count 138 L Lymph % (Auto) 2.5 L Eos % (Auto) 4.5 H Lymph # 0.4 L [place] # 0.9 H Eos # 0.7 H Seg Neutrophils % 86.1 H Seg Neutrophils # 12.9 H POC ABG pH 7.174 L POC ABG pCO2 77.8 H POC ABG pO2 BUN 29 H Creatinine 4.0 H D Glucose 74 L Lactic Acid Total Creatine Kinase CK-MB (CK-2) CK-MB (CK-2) Rel Index Troponin T Total Protein 5.2 L Albumin 2.8 L 09/13/16 10:42 WBC RBC Hgb Hct MCV MCHC RDW Plt Count Lymph % (Auto) Eos % (Auto) Lymph # [place] # Eos # Seg Neutrophils % Seg Neutrophils # POC ABG pH 7.234 L POC ABG pCO2 65.2 H POC ABG pO2 62 L BUN Creatinine Glucose Lactic Acid Total Creatine Kinase CK-MB (CK-2) CK-MB (CK-2) Rel Index Troponin T Total Protein Albumin
--- NOTE | 2016-09-13 12:37 | Consultation ---
History of Present Illness Consult date: 09/13/16 Consult reason: hypotension, known to you History of present illness: This is an 86yr old male with ESRD who presented from dialysis unresponsive and hypotensive requiring chest compression. In addition, he was noted hypoxic in the ED and placed on Bipap therapy. Cardiac consultation requested. Patient has an extensive cardiac history. Several years ago, he underwent 3 vessel coronary bypass grafting. In 2003, a coronary stent was placed in the RCA not previously bypassed. In 2016, a cardiac cath demonstrated small vessel disease and moderate instent restenosis of the RCA stent recommended for medical therapy. His bypass grafts were widely patent. Ejection fraction 60%. He also has a PPM insitu ([employer]) and a history of paroxysmal atrial fibrillation for which he is on amiodarone therapy. ECG shows a atrial paced rhythm. Past History Past Medical History: CAD, COPD, dialysis, ESRD Social history: , lives with family, smoking. denies: alcohol abuse, prescription drug abuse Family history: hypertension Medications and Allergies Allergies Allergy/AdvReac Type Severity Reaction Status Date / Time No Known Allergies Allergy Unverified 12/13/13 19:01 Home Medications Medication Instructions Recorded Confirmed Last Taken Type Amiodarone [Cordarone 200 MG TAB] 200 mg PO DAILY 12/13/13 09/11/16 12/13/13 History Aspirin EC [Aspirin Enteric Coated 81 mg PO QDAY 12/13/13 09/11/16 12/13/13 History TAB] Calcium Acetate 667 mg PO TID 12/13/13 09/11/16 12/13/13 History Carvedilol [Coreg] 6.25 mg PO BID 12/13/13 09/11/16 12/13/13 History Rosuvastatin (Nf) [Crestor] 20 mg PO QHS 12/13/13 09/11/16 12/13/13 History Solifenacin Succinate [Vesicare] 5 mg PO DAILY 12/13/13 09/11/16 12/13/13 History Tamsulosin [Flomax] 0.4 mg PO DAILY 12/13/13 09/11/16 12/13/13 History Vit B Cplx #11/FA/C/Biot/Zn Ox 1 tab PO DAILY 12/13/13 09/11/16 12/13/13 History [Dialyvite with Zinc Tablet] Tiotropium [Spiriva] 18 mcg IH QDAY #1 box 12/18/13 09/11/16 Unknown Rx Active Meds: Active Medications Acetaminophen (Tylenol) 650 mg PO Q4H PRN PRN Reason: Pain MILD(1-3)/Fever >100.5/WALTERS Aspirin (Halfprin Ec) 81 mg PO QDAY [facility] Last Admin: 09/13/16 10:52 Dose: 81 mg Atorvastatin Calcium (Lipitor) 40 mg PO QHS [facility] Last Admin: 09/12/16 22:02 Dose: 40 mg Bisacodyl (Dulcolax) 10 mg [place] QDAY PRN PRN Reason: Constipation unrelieved by MOM Calcium Acetate (Phoslo) 667 mg PO TIDWM [facility] Last Admin: 09/13/16 10:52 Dose: 667 mg Heparin Sodium (Porcine) (Heparin) 5,000 unit SUB-Q Q8HR [facility] Levofloxacin/Dextrose (Levaquin 500mg/100ml) 500 mg in 100 mls @ 100 mls/hr IV Q48HR [facility] Norepinephrine 8 mg/ Sodium (Chloride) 250 mls @ 3.75 mls/hr IV TITR ISAAK; 2 MCG /MIN PRN Reason: Protocol Last Titration: 09/13/16 10:56 Dose: 6 mcg/min, 11.25 mls/hr Piperacillin Sod/Tazobactam Sod (Zosyn/Ns 2.25 Gm/50ml) 2.25 gm in 50 mls @ 100 mls/hr IV Q8HR [facility] Last Admin: 09/12/16 22:02 Dose: 100 mls/hr Magnesium Hydroxide (Milk Of Magnesia) 30 ml PO Q4H PRN PRN Reason: Constipation Multivit/Ca Carb/B Cmplx/FA/Prenat (Renal Caps) 1 cap PO QDAY [facility] Last Admin: 09/13/16 10:52 Dose: 1 cap Ondansetron HCl (Zofran) 4 mg IV Q8H PRN PRN Reason: N/V unrelieved by Reglan Sodium Chloride (Sodium Chloride Flush Syringe 10 Ml) 10 ml IV PRN PRN PRN Reason: LINE FLUSH Tamsulosin HCl (Flomax) 0.4 mg PO DAILY [facility] Last Admin: 09/12/16 13:13 Dose: 0.4 mg Tiotropium [place] (Spiriva) 1 puff IH QDAY ISAAK Vancomycin HCl (Vancomycin Pharmacy To Dose) 1 each IV PKCONSULT ISAAK PRN Reason: Protocol Physical Examination Vital Signs Temp Pulse Resp BP Pulse Ox 97.6 F 71 14 112/65 100 09/11/16 16:00 09/11/16 16:00 09/11/16 16:00 09/11/16 16:00 09/11/16 16:00 General appearance: other (on bipap therapy) Cardiac: Positive: Reg Rate and Rhythm Results 09/13/16 05:10 09/13/16 05:10 Cardiac Enzymes 09/13/16 Range/Units 05:10 AST 12 (5-40) units/L CBC 09/13/16 Range/Units 05:10 WBC 14.9 H (4.5-11.0) K/mm3 RBC 3.23 L (3.65-5.03) M/mm3 Hgb 9.7 L (11.8-15.2) gm/dl Hct 31.9 L (35.5-45.6) % Plt Count 138 L (140-440) K/mm3 Lymph # 0.4 L (1.2-5.4) K/mm3 [place] # 0.9 H (0.0-0.8) K/mm3 Eos # 0.7 H (0.0-0.4) K/mm3 Baso # 0.1 (0.0-0.1) K/mm3 Comprehensive Metabolic Panel 09/13/16 Range/Units 05:10 Sodium 141 (137-145) mmol/L Potassium 3.6 (3.6-5.0) mmol/L Chloride 100.0 (98-107) mmol/L Carbon Dioxide 28 (22-30) mmol/L BUN 29 H (9-20) mg/dL Creatinine 4.0 H D (0.8-1.5) mg/dL Glucose 74 L (75-100) mg/dL Calcium 8.6 (8.4-10.2) mg/dL Direct Bilirubin < 0.2 (0-0.2) mg/dL Indirect Bilirubin 0.2 mg/dL AST 12 (5-40) units/L ALT 14 (7-56) units/L Alkaline Phosphatase 74 (35-129) units/L Total Protein 5.2 L (6.3-8.2) g/dL Albumin 2.8 L (3.9-5) g/dL Assessment and Plan Acute Respiratory failure on bipap therapy Hypotensive -on pressor support Elevated D-dimer no evidence of PE by V\Q scan ESRD on HD Hx of COPD Hx of CAD s/p 3 vessel CABG and PCI Hx of paroxysmal Afib on amiodarone as an outpatient Presence of PPM ([employer])
--- NOTE | 2016-09-13 12:44 | Event Note ---
Date: 09/13/16 Patient seen and examined Events during HD noted. There is a mention of patient becoming unresponsive and requiring chest compressions. No shocks administered. Patient does not recall what happened. Patient is currently comfortable on BiPAP and IV levophed 6 mcg/min with a BP 111/38 WBC is elevated but he is afebrile and his cultures are so far negative CXR showing evidence of fluid overload and small bilateral pleural effusions Physical exam is benign except for distended neck veins and soft distended abdomen ECG is showing A-pacing with IVCD - unchanged from previous Troponin is nonspecifically elevated and patient specifically denies chest pain or shortness of breath Respiratory failure due to volume overload Acute on chronic diastolic heart failure Moderate aortic stenosis (MG 31 mm Hg and MATEO 1.19 cm2) with a preserved LVEF ( audible S2 on exam) Moderate to severe TR with a dilated RA and evidence of severe pulmonary hypertension History of CABG and PCI with no evidence of ACS this admission Hypotension on IV levophed - thought to be SIRS, rule out sepsis. Cultures are NGTD on broad spectrum antibiotics ESRD on HD x 4 years Recommendations: Continue supportive care per ICU and primary team No indication for cardiac intervention at this point Thank you for involving us in this patient care
--- NOTE | 2016-09-13 14:01 | Consultation ---
History of Present Illness - History of Present Illness Thank you for the consultation,patient was seen around 1:30 in the afternoon Patient is well known to me from dialysis Currently he is on dialysis Friday but unstable for hemodialysis today due to hypotension Long-standing history of COPD in a patient who has been smoking up until recently was recently admitted at [facility], [place] with respiratory failure He currently is hypertensive and does need generous doses of steroids given the history of COPD currently on vasopressors not suitable for hemodialysis Respiratory failure currently on, BiPAP to follow Anemia and end-stage renal disease to follow Secondary hyperparathyroidism to monitor phosphorus and PTH level periodically History of chronic tobacco use up until recently Prognosis guarded to poor Continue with supportive care reassess for hemodialysis tomorrow morning Past History Past Medical History: CAD, COPD, dialysis, ESRD Past Surgical History: Other (ICD, Pacemaker) Social history: , lives with family, smoking. denies: alcohol abuse, prescription drug abuse Family history: hypertension Medications and Allergies Allergies Allergy/AdvReac Type Severity Reaction Status Date / Time No Known Allergies Allergy Unverified 12/13/13 19:01 Home Medications Medication Instructions Recorded Confirmed Last Taken Type Amiodarone [Cordarone 200 MG TAB] 200 mg PO DAILY 12/13/13 09/11/16 12/13/13 History Aspirin EC [Aspirin Enteric Coated 81 mg PO QDAY 12/13/13 09/11/16 12/13/13 History TAB] Calcium Acetate 667 mg PO TID 12/13/13 09/11/16 12/13/13 History Carvedilol [Coreg] 6.25 mg PO BID 12/13/13 09/11/16 12/13/13 History Rosuvastatin (Nf) [Crestor] 20 mg PO QHS 12/13/13 09/11/16 12/13/13 History Solifenacin Succinate [Vesicare] 5 mg PO DAILY 12/13/13 09/11/16 12/13/13 History Tamsulosin [Flomax] 0.4 mg PO DAILY 12/13/13 09/11/16 12/13/13 History Vit B Cplx #11/FA/C/Biot/Zn Ox 1 tab PO DAILY 12/13/13 09/11/16 12/13/13 History [Dialyvite with Zinc Tablet] Tiotropium [Spiriva] 18 mcg IH QDAY #1 box 12/18/13 09/11/16 Unknown Rx Active Meds: Active Medications Acetaminophen (Tylenol) 650 mg PO Q4H PRN PRN Reason: Pain MILD(1-3)/Fever >100.5/[place] Aspirin (Halfprin Ec) 81 mg PO QDAY [facility] Last Admin: 09/13/16 10:52 Dose: 81 mg Atorvastatin Calcium (Lipitor) 40 mg PO QHS [facility] Last Admin: 09/12/16 22:02 Dose: 40 mg Bisacodyl (Dulcolax) 10 mg [place] QDAY PRN PRN Reason: Constipation unrelieved by MOM Calcium Acetate (Phoslo) 667 mg PO TIDWM [facility] Last Admin: 09/13/16 10:52 Dose: 667 mg Heparin Sodium (Porcine) (Heparin) 5,000 unit SUB-Q Q8HR [facility] Levofloxacin/Dextrose (Levaquin 500mg/100ml) 500 mg in 100 mls @ 100 mls/hr IV Q48HR [facility] Norepinephrine 8 mg/ Sodium (Chloride) 250 mls @ 3.75 mls/hr IV TITR ISAAK; 2 MCG /MIN PRN Reason: Protocol Last Titration: 09/13/16 13:59 Dose: 4 mcg/min, 7.5 mls/hr Piperacillin Sod/Tazobactam Sod (Zosyn/Ns 2.25 Gm/50ml) 2.25 gm in 50 mls @ 100 mls/hr IV Q8HR [facility] Last Admin: 09/12/16 22:02 Dose: 100 mls/hr Magnesium Hydroxide (Milk Of Magnesia) 30 ml PO Q4H PRN PRN Reason: Constipation Multivit/Ca Carb/B Cmplx/FA/Prenat (Renal Caps) 1 cap PO QDAY [facility] Last Admin: 09/13/16 10:52 Dose: 1 cap Ondansetron HCl (Zofran) 4 mg IV Q8H PRN PRN Reason: N/V unrelieved by Reglan Sodium Chloride (Sodium Chloride Flush Syringe 10 Ml) 10 ml IV PRN PRN PRN Reason: LINE FLUSH Tamsulosin HCl (Flomax) 0.4 mg PO DAILY [facility] Last Admin: 09/12/16 13:13 Dose: 0.4 mg Tiotropium [place] (Spiriva) 1 puff IH QDAY [facility] Vancomycin HCl (Vancomycin Pharmacy To Dose) 1 each IV PKCONSULT ISAAK PRN Reason: Protocol Exam - Vital Signs Vital signs: Vital Signs Temp Pulse Resp BP Pulse Ox 97.6 F 71 14 112/65 100 09/11/16 16:00 09/11/16 16:00 09/11/16 16:00 09/11/16 16:00 09/11/16 16:00 Results - Lab Results 09/13/16 05:10 09/13/16 05:10 Most recent lab results Calcium 8.6 mg/dL (8.4-10.2) 09/13/16 05:10 Magnesium 1.90 mg/dL (1.7-2.3) 09/13/16 05:10
--- NOTE | 2016-09-13 15:46 | Progress Note ---
Assessment and Plan Assessment and plan: --Acute on Chronic respiratory failure requiring noninvasive ventilation Continue oxygen, titrated to O2 sats more than 90%, nebulizers, IV antibiotics Pulmonary following --Sepsis/leukocytosis IV antibiotics, cultures negative to date --Septic shock requiring pressors Titrate systolic blood pressures more than 100, supportive care --End-stage renal disease on hemodialysis hemodialysis per schedule, nephrology following --Hypertension; hold antihypertensive medications --History of coronary artery disease is post CABG Patient has mild elevation of troponins, probably secondary to end-stage renal disease, Cardiology evaluation noted and appreciated --History of congestive heart failure/systolic continue current cardiac medications, hemodialysis per schedule --Dyslipidemia; continue statin --Full CODE STATUS --DC planning to case management Consults and recommendations noted and appreciated History Interval history: Patient seen and evaluated ER awaiting room assignment ,medical records reviewed Patient remains hypotensive on Levophed Receiving Ventimask oxygen saturating 95-96 percent Patient alert and awake responding to simple questions Denies chest pain or shortness of breath Hospitalist Physical - Constitutional Vitals: Temp Pulse Resp BP Pulse Ox 98.5 F 60 17 112/37 95 09/13/16 12:00 09/13/16 15:11 09/13/16 15:11 09/13/16 15:11 09/13/16 15:11 General appearance: Present: mild distress, well-nourished, other (on bipap therapy) - EENT Eyes: Present: PERRL, EOM intact - Neck Neck: Present: supple, normal ROM - Respiratory Respiratory effort: normal Respiratory: bilateral: diminished, rhonchi, negative: rales, wheezing - Cardiovascular Rhythm: regular Heart Sounds: Present: S1 & S2 - Extremities Extremities: no ischemia, pulses intact, pulses symmetrical Peripheral Pulses: within normal limits - Abdominal General gastrointestinal: soft, non-tender, non-distended, normal bowel sounds - Integumentary Integumentary: Present: clear, warm - Psychiatric Psychiatric: appropriate mood/affect, cooperative - Neurologic Neurologic: CNII-XII intact, moves all extremities Results - Labs CBC & Chem 7: 09/13/16 05:10 09/13/16 05:10 Labs: Laboratory Last Values WBC 14.9 K/mm3 (4.5-11.0) H 09/13/16 05:10 RBC 3.23 M/mm3 (3.65-5.03) L 09/13/16 05:10 Hgb 9.7 gm/dl (11.8-15.2) L 09/13/16 05:10 Hct 31.9 % (35.5-45.6) L 09/13/16 05:10 MCV 99 fl (84-94) H 09/13/16 05:10 MCH 30 pg (28-32) 09/13/16 05:10 MCHC 30 % (32-34) L 09/13/16 05:10 RDW 21.2 % (13.2-15.2) H 09/13/16 05:10 Plt Count 138 K/mm3 (140-440) L 09/13/16 05:10 Lymph % (Auto) 2.5 % (13.4-35.0) L 09/13/16 05:10 [place] % (Auto) 6.3 % (0.0-7.3) 09/13/16 05:10 Eos % (Auto) 4.5 % (0.0-4.3) H 09/13/16 05:10 Baso % (Auto) 0.6 % (0.0-1.8) 09/13/16 05:10 Lymph # 0.4 K/mm3 (1.2-5.4) L 09/13/16 05:10 [place]itus # 0.9 K/mm3 (0.0-0.8) H 09/13/16 05:10 Eos # 0.7 K/mm3 (0.0-0.4) H 09/13/16 05:10 Baso # 0.1 K/mm3 (0.0-0.1) 09/13/16 05:10 Add Manual Diff Complete 09/11/16 16:22 Total Counted 100 09/11/16 16:22 Seg Neutrophils % 86.1 % (40.0-70.0) H 09/13/16 05:10 Seg Neuts % (Manual) 53.0 % (40.0-70.0) 09/11/16 16:22 Band Neutrophils % 43.0 % 09/11/16 16:22 Lymphocytes % (Manual) 1.0 % (13.4-35.0) L 09/11/16 16:22 Reactive Lymphs % (Man) 0 % 09/11/16 16:22 Monocytes % (Manual) 3.0 % (0.0-7.3) 09/11/16 16:22 Eosinophils % (Manual) 0 % (0.0-4.3) 09/11/16 16:22 Basophils % (Manual) 0 % (0.0-1.8) 09/11/16 16:22 Metamyelocytes % 0 % 09/11/16 16:22 Myelocytes % 0 % 09/11/16 16:22 Promyelocytes % 0 % 09/11/16 16:22 Blast Cells % 0 % 09/11/16 16:22 Nucleated RBC % Not Reportable 09/11/16 16:22 Seg Neutrophils # 12.9 K/mm3 (1.8-7.7) H 09/13/16 05:10 Seg Neutrophils # Man 12.0 K/mm3 (1.8-7.7) H 09/11/16 16:22 Band Neutrophils # 9.8 K/mm3 09/11/16 16:22 Lymphocytes # (Manual) 0.2 K/mm3 (1.2-5.4) L 09/11/16 16:22 Abs React Lymphs (Man) 0.0 K/mm3 09/11/16 16:22 Monocytes # (Manual) 0.7 K/mm3 (0.0-0.8) 09/11/16 16:22 Eosinophils # (Manual) 0.0 K/mm3 (0.0-0.4) 09/11/16 16:22 Basophils # (Manual) 0.0 K/mm3 (0.0-0.1) 09/11/16 16:22 Metamyelocytes # 0.0 K/mm3 09/11/16 16:22 Myelocytes # 0.0 K/mm3 09/11/16 16:22 Promyelocytes # 0.0 K/mm3 09/11/16 16:22 Blast Cells # 0.0 K/mm3 09/11/16 16:22 WBC Morphology Not Reportable 09/11/16 16:22 Hypersegmented Neuts Not Reportable 09/11/16 16:22 Hyposegmented Neuts Not Reportable 09/11/16 16:22 Hypogranular Neuts Not Reportable 09/11/16 16:22 Smudge Cells Not Reportable 09/11/16 16:22 Toxic Granulation Not Reportable 09/11/16 16:22 Toxic Vacuolation Not Reportable 09/11/16 16:22 Dohle Bodies Not Reportable 09/11/16 16:22 Pelger-Huet Anomaly Not Reportable 09/11/16 16:22 Maia Rods Not Reportable 09/11/16 16:22 Platelet Estimate Consistent w auto 09/11/16 16:22 Clumped Platelets Not Reportable 09/11/16 16:22 Plt Clumps, EDTA Not Reportable 09/11/16 16:22 Large Platelets Not Reportable 09/11/16 16:22 Giant Platelets Not Reportable 09/11/16 16:22 Platelet Satelliting Not Reportable 09/11/16 16:22 Plt Morphology Comment Not Reportable 09/11/16 16:22 RBC Morphology Not Reportable 09/11/16 16:22 Dimorphic RBCs Not Reportable 09/11/16 16:22 Polychromasia Not Reportable 09/11/16 16:22 Hypochromasia Not Reportable 09/11/16 16:22 Poikilocytosis 1+ 09/11/16 16:22 Anisocytosis 1+ 09/11/16 16:22 Microcytosis Not Reportable 09/11/16 16:22 Macrocytosis Not Reportable 09/11/16 16:22 Spherocytes Not Reportable 09/11/16 16:22 Pappenheimer Bodies Not Reportable 09/11/16 16:22 Sickle Cells Not Reportable 09/11/16 16:22 Target Cells Not Reportable 09/11/16 16:22 Tear Drop Cells Not Reportable 09/11/16 16:22 Ovalocytes Not Reportable 09/11/16 16:22 Helmet Cells Not Reportable 09/11/16 16:22 [place]-Eddy Bodies Not Reportable 09/11/16 16:22 [place] Rings Not Reportable 09/11/16 16:22 Gibson Cells Not Reportable 09/11/16 16:22 Bite Cells Not Reportable 09/11/16 16:22 Crenated Cell Not Reportable 09/11/16 16:22 Elliptocytes 1+ 09/11/16 16:22 Acanthocytes (Spur) Not Reportable 09/11/16 16:22 Rouleaux Not Reportable 09/11/16 16:22 Hemoglobin C Crystals Not Reportable 09/11/16 16:22 Schistocytes Not Reportable 09/11/16 16:22 Malaria parasites Not Reportable 09/11/16 16:22 Nirav Bodies Not Reportable 09/11/16 16:22 Hem Pathologist Commnt No 09/11/16 16:22 PT 16.3 Sec. (12.2-14.9) H 09/11/16 16:22 INR 1.32 (0.87-1.13) H 09/11/16 16:22 APTT 29.7 Sec. (24.2-36.6) 09/11/16 16:22 D-Dimer 3181.50 ng/mlDDU (0-234) H 09/11/16 16:22 POC ABG pH 7.234 (7.35-7.45) L 09/13/16 10:42 POC ABG pCO2 65.2 (35-45) H 09/13/16 10:42 POC ABG pO2 62 (80-105) L 09/13/16 10:42 POC ABG HCO3 27.5 09/13/16 10:42 POC ABG Total CO2 30 09/13/16 10:42 POC ABG O2 Sat 86 09/13/16 10:42 POC ABG Base Excess 0 09/13/16 10:42 FiO2 30 % 09/13/16 10:42 Sodium 141 mmol/L (137-145) 09/13/16 05:10 Potassium 3.6 mmol/L (3.6-5.0) 09/13/16 05:10 Chloride 100.0 mmol/L (98-107) 09/13/16 05:10 Carbon Dioxide 28 mmol/L (22-30) 09/13/16 05:10 Anion Gap 17 mmol/L 09/13/16 05:10 BUN 29 mg/dL (9-20) H 09/13/16 05:10 Creatinine 4.0 mg/dL (0.8-1.5) H D 09/13/16 05:10 Estimated GFR 14 ml/min 09/13/16 05:10 BUN/Creatinine Ratio 7.25 % 09/13/16 05:10 Glucose 74 mg/dL (75-100) L 09/13/16 05:10 POC Glucose 85 (70-105) 09/11/16 22:50 Lactic Acid 0.60 mmol/L (0.7-2.0) L 09/12/16 10:14 Calcium 8.6 mg/dL (8.4-10.2) 09/13/16 05:10 Magnesium 1.90 mg/dL (1.7-2.3) 09/13/16 05:10 Total Bilirubin 0.40 mg/dL (0.1-1.2) 09/13/16 05:10 Direct Bilirubin < 0.2 mg/dL (0-0.2) 09/13/16 05:10 Indirect Bilirubin 0.2 mg/dL 09/13/16 05:10 AST 12 units/L (5-40) 09/13/16 05:10 ALT 14 units/L (7-56) 09/13/16 05:10 Alkaline Phosphatase 74 units/L (35-129) 09/13/16 05:10 Total Creatine Kinase 11 units/L (55-170) L 09/12/16 10:14 CK-MB (CK-2) 1.9 ng/mL (0.0-4.0) 09/12/16 10:14 CK-MB (CK-2) Rel Index 17.2 (0-4) H 09/12/16 10:14 Troponin T 0.071 ng/mL (0.00-0.029) H D 09/12/16 10:14 Total Protein 5.2 g/dL (6.3-8.2) L 09/13/16 05:10 Albumin 2.8 g/dL (3.9-5) L 09/13/16 05:10 Albumin/Globulin Ratio 1.2 % 09/13/16 05:10 Triglycerides 85 mg/dL (2-149) 09/11/16 16:22 Cholesterol 77 mg/dL (50-199) 09/11/16 16:22 LDL Cholesterol Direct 17 mg/dL (50-130) L 09/11/16 16:22 HDL Cholesterol 43 mg/dL (40-59) 09/11/16 16:22 Cholesterol/HDL Ratio 1.79 % 09/11/16 16:22 Urine Color Yellow (Yellow) 09/12/16 01:03 Urine Turbidity Clear (Clear) 09/12/16 01:03 Urine pH 6.0 (5.0-7.0) 09/12/16 01:03 Ur Specific [place] 1.010 (1.003-1.030) 09/12/16 01:03 Urine Protein 30 mg/dl mg/dL (Negative) 09/12/16 01:03 Urine Glucose (UA) 50 mg/dL (Negative) 09/12/16 01:03 Urine Ketones Neg mg/dL (Negative) 09/12/16 01:03 Urine Blood Neg (Negative) 09/12/16 01:03 Urine Nitrite Neg (Negative) 09/12/16 01:03 Urine Bilirubin Neg (Negative) 09/12/16 01:03 Urine Urobilinogen < 2.0 mg/dL (<2.0) 09/12/16 01:03 Ur Leukocyte Esterase Neg (Negative) 09/12/16 01:03 Urine WBC (Auto) 4.0 /HPF (0.0-6.0) 09/12/16 01:03 Urine RBC (Auto) 5.0 /HPF (0.0-6.0) 09/12/16 01:03 U Epithel Cells (Auto) < 1.0 /HPF (0-13.0) 09/12/16 01:03 Urine Bacteria (Auto) 1+ /HPF (Negative) 09/12/16 01:03
[2016-09-13 16:18] LABS: ISTAT Base Excess 1; ISTAT HCO3 28.6; ISTAT PCO2 64.3 (35-45); ISTAT PH 7.256 (7.35-7.45); ISTAT PO2 61 (80-105); ISTAT SO2 86; ISTAT TCO2 30
[2016-09-13] MEDS: FLOMAX PO SCH (17:02)
[2016-09-13] MEDS: HEPARIN SUB-Q SCH ×2 (17:03→22:05)
[2016-09-13] MEDS: ZOSYN/NS 2.25 GM/50ML 2.25 GM/50 ML BAG IV SCH ×3 (18:30→22:05)
[2016-09-13] MEDS: ATROVENT IH SCH (20:23)
--- NOTE | 2016-09-13 23:17 | Progress Note ---
Assessment and Plan Acute Respiratory failure on bipap therapy Hypotensive -on pressor support Elevated D-dimer no evidence of PE by V\Q scan ESRD on HD Hx of COPD Hx of CAD s/p 3 vessel CABG and PCI Hx of paroxysmal Afib on amiodarone as an outpatient Presence of PPM (Actimo) continue medical therapy with ASA and statin ween from pressors as tolerated Consider BB when acute issues resolved Subjective Date of service: 09/14/16 Interval history: No acute events. Patient is awake and alert. he is conversational. Breathing comfortably on BiPAP. Currently on pressors with levophed. Objective Vital Signs Temp Pulse Pulse Resp Resp BP Pulse Ox 09/13/16 20:40 60 20 100/39 94 09/13/16 20:33 64 22 09/13/16 20:23 60 20 09/13/16 20:00 97.7 F 98 09/13/16 18:41 62 20 101/39 93 09/13/16 18:30 59 L 15 101/39 99 09/13/16 18:21 60 20 106/38 95 09/13/16 18:11 60 18 108/38 96 09/13/16 18:00 60 20 108/38 95 09/13/16 17:51 60 15 109/40 97 09/13/16 17:41 60 20 100/39 98 09/13/16 17:30 60 20 100/39 99 09/13/16 17:21 61 18 90/32 98 09/13/16 17:11 60 20 108/42 99 09/13/16 17:00 67 15 109/44 93 09/13/16 16:51 60 20 112/41 99 09/13/16 16:41 61 18 116/41 67 L 09/13/16 16:30 60 18 108/42 98 09/13/16 16:21 60 20 116/41 94 09/13/16 16:11 60 20 116/44 95 09/13/16 16:08 61 09/13/16 16:07 60 20 100 09/13/16 16:00 97.5 F L 60 20 114/43 97 09/13/16 15:51 60 16 113/40 09/13/16 15:41 61 22 113/40 100 09/13/16 15:36 60 21 116/44 96 09/13/16 15:30 64 20 116/44 85 09/13/16 15:21 60 16 113/40 92 09/13/16 15:11 60 17 112/37 95 09/13/16 15:00 61 23 111/41 92 09/13/16 14:51 61 12 112/37 93 09/13/16 14:41 63 17 107/36 94 09/13/16 14:30 60 18 107/36 99 09/13/16 14:21 60 16 112/35 98 09/13/16 14:11 62 18 106/36 96 09/13/16 14:00 60 20 106/36 93 09/13/16 13:51 59 L 21 117/45 95 09/13/16 13:41 62 21 110/37 91 09/13/16 13:30 63 29 H 105/32 93 09/13/16 13:20 60 16 107/33 92 09/13/16 13:11 63 22 114/37 96 09/13/16 13:00 60 21 114/37 98 09/13/16 12:51 60 20 100/33 94 09/13/16 12:41 62 24 109/32 93 09/13/16 12:30 60 23 109/32 96 09/13/16 12:21 60 20 111/38 96 09/13/16 12:11 60 23 107/35 97 09/13/16 12:00 98.5 F 60 21 107/35 96 09/13/16 11:51 63 21 104/32 94 09/13/16 11:41 60 18 102/38 95 09/13/16 11:30 65 23 102/38 89 09/13/16 11:21 62 17 99/34 91 09/13/16 11:11 60 20 107/33 92 09/13/16 11:00 60 23 107/33 96 09/13/16 10:51 60 24 111/35 93 09/13/16 10:41 60 26 H 112/36 91 09/13/16 10:30 60 24 112/36 99 09/13/16 10:23 59 L 20 109/38 97 09/13/16 10:21 62 21 109/38 94 09/13/16 10:11 60 20 115/38 95 09/13/16 10:00 60 22 115/38 95 09/13/16 09:51 60 19 115/43 95 06/09/17 09:41 60 18 108/38 95 09/13/16 09:30 60 19 108/38 93 09/13/16 09:21 60 18 104/39 95 09/13/16 09:11 60 21 104/38 93 09/13/16 09:00 60 20 104/38 93 09/13/16 08:51 60 20 104/37 93 09/13/16 08:41 60 17 102/34 89 09/13/16 08:30 60 18 102/34 91 09/13/16 08:21 60 19 102/34 92 09/13/16 08:11 59 L 20 114/41 92 09/13/16 08:00 61 22 114/41 97 09/13/16 07:51 60 19 122/41 84 09/13/16 07:46 97.6 F 09/13/16 07:40 60 25 H 113/34 92 09/13/16 07:35 61 22 113/34 91 09/13/16 07:31 62 22 113/34 91 09/13/16 07:21 63 23 120/41 88 09/13/16 07:14 62 21 128/42 97 09/13/16 07:11 62 25 H 128/42 95 09/13/16 07:00 62 21 128/42 96 09/13/16 06:51 64 19 115/43 88 09/13/16 06:41 62 19 113/38 95 09/13/16 06:30 62 22 113/38 94 09/13/16 06:21 64 21 119/40 93 09/13/16 06:11 61 20 110/38 97 09/13/16 06:00 62 19 110/38 97 09/13/16 05:51 63 16 107/42 96 09/13/16 05:41 64 17 118/40 97 09/13/16 05:30 63 20 118/40 97 09/13/16 05:21 62 19 117/41 97 09/13/16 05:11 62 22 110/36 97 09/13/16 05:00 64 12 110/36 97 09/13/16 04:51 63 21 114/41 98 09/13/16 04:41 62 17 110/38 98 09/13/16 04:30 63 21 110/38 98 09/13/16 04:21 62 15 110/39 99 09/13/16 04:11 66 20 111/33 82 L 09/13/16 04:01 61 19 111/33 100 09/13/16 04:00 98.3 F 09/13/16 03:51 60 16 90/32 100 09/13/16 03:41 60 18 115/36 99 09/13/16 03:30 60 19 115/36 100 09/13/16 03:21 60 18 105/36 100 09/13/16 03:11 59 L 18 105/37 100 09/13/16 03:00 60 18 105/37 100 09/13/16 02:51 60 18 110/36 100 09/13/16 02:41 60 18 128/44 100 09/13/16 02:30 61 19 128/44 100 09/13/16 02:21 62 19 130/40 99 09/13/16 02:11 62 18 131/41 100 09/13/16 02:00 62 19 131/41 100 09/13/16 01:51 63 18 128/40 100 09/13/16 01:41 65 20 129/39 100 09/13/16 01:30 62 18 129/39 09/13/16 01:21 63 21 126/41 99 09/13/16 01:11 63 22 116/44 100 09/13/16 01:01 62 27 H 116/44 100 09/13/16 00:51 63 15 119/39 100 09/13/16 00:41 62 20 117/39 100 09/13/16 00:30 62 19 117/39 100 09/13/16 00:21 63 20 110/40 100 09/13/16 00:11 64 21 119/41 99 09/13/16 00:00 98.7 F 65 22 119/41 98 09/12/16 23:51 64 21 123/43 94 09/12/16 23:41 66 22 122/41 84 09/12/16 23:33 67 30 H 111/40 94 09/12/16 23:30 67 25 H 122/41 88 09/12/16 23:23 66 23 111/40 96 09/12/16 23:21 67 25 H 111/40 97 - Labs and Meds Cardiac Enzymes 09/13/16 Range/Units 05:10 AST 12 (5-40) units/L CBC 09/13/16 Range/Units 05:10 WBC 14.9 H (4.5-11.0) K/mm3 RBC 3.23 L (3.65-5.03) M/mm3 Hgb 9.7 L (11.8-15.2) gm/dl Hct 31.9 L (35.5-45.6) % Plt Count 138 L (140-440) K/mm3 Lymph # 0.4 L (1.2-5.4) K/mm3 [place] # 0.9 H (0.0-0.8) K/mm3 Eos # 0.7 H (0.0-0.4) K/mm3 Baso # 0.1 (0.0-0.1) K/mm3 Comprehensive Metabolic Panel 09/13/16 Range/Units 05:10 Sodium 141 (137-145) mmol/L Potassium 3.6 (3.6-5.0) mmol/L Chloride 100.0 (98-107) mmol/L Carbon Dioxide 28 (22-30) mmol/L BUN 29 H (9-20) mg/dL Creatinine 4.0 H D (0.8-1.5) mg/dL Glucose 74 L (75-100) mg/dL Calcium 8.6 (8.4-10.2) mg/dL Direct Bilirubin < 0.2 (0-0.2) mg/dL Indirect Bilirubin 0.2 mg/dL AST 12 (5-40) units/L ALT 14 (7-56) units/L Alkaline Phosphatase 74 (35-129) units/L Total Protein 5.2 L (6.3-8.2) g/dL Albumin 2.8 L (3.9-5) g/dL
[2016-09-14 00:36] LABS: ISTAT Base Excess 1; ISTAT HCO3 27.9; ISTAT PCO2 58.4 (35-45); ISTAT PH 7.287 (7.35-7.45); ISTAT PO2 23 (80-105); ISTAT SO2 32; ISTAT TCO2 30
[2016-09-14 00:36] LABS: ISTAT Base Excess 0; ISTAT HCO3 26.2; ISTAT PCO2 54.4 (35-45); ISTAT PH 7.291 (7.35-7.45); ISTAT PO2 64 (80-105); ISTAT SO2 89; ISTAT TCO2 28
[2016-09-14] MEDS: HEPARIN SUB-Q SCH ×3 (06:10→23:18)
[2016-09-14] MEDS: ATROVENT IH SCH ×3 (08:07→19:35)
[2016-09-14] MEDS: ZOSYN/NS 2.25 GM/50ML 2.25 GM/50 ML BAG IV SCH ×3 (08:15→23:18)
[2016-09-14 08:40] LABS: Hematocrit 27.7 % (35.5-45.6); Mean Corpuscular HGB Conc 32 % (32-34); Mean Corpuscular Hemoglobin 31 pg (28-32); Mean Corpuscular Volume 96 fl (84-94); Platelet Count 102 K/mm3 (140-440); Red Blood Count 2.89 M/mm3 (3.65-5.03)
[2016-09-14 08:48] LABS: BUN/Creatinine Ratio 8.65; Calcium 8.4 mg/dL (8.4-10.2); Chloride 100.4 mmol/L (98-107)
[2016-09-14 08:49] LABS: Red Cell Distribution Width 20.9 % (13.2-15.2)
[2016-09-14] MEDS: PHOSLO PO SCH ×3 (08:55→19:58)
--- NOTE | 2016-09-14 08:56 | Progress Note ---
Assessment and Plan Assessment and plan: --Sepsis/leukocytosis Continue IV antibiotics, cultures negative to date, WBC trending down --Septic shock requiring pressors Improved, titrated DC Levophed, gentle hydration with IV fluids --Chronic respiratory failure requiring noninvasive ventilation Saturating well on nasal cannula oxygen, continue current management --End-stage renal disease on hemodialysis hemodialysis per schedule --Hypertension; patient is hypotensive Hold all antihypertensive medications --History of coronary artery disease is post CABG Patient has mild elevation of troponins, probably secondary to end-stage renal disease, closely monitor, on CT evaluation noted and appreciated --History of congestive heart failure/systolic continue current cardiac medications, hemodialysis per schedule --Dyslipidemia; continue statin --Full CODE STATUS Closely monitor the patient and adjust the management as needed Disposition:Closely monitor blood pressures, if reasonable levels ,patient can be transferred out of ICU to tele History Interval history: HEENT and evaluated with home monitoring medical records reviewed Patient is alert awake oriented 3 Requiring very low dose of Levophed No new complaints, no new events reported by the nursing staff Hospitalist Physical - Constitutional Vitals: Temp Pulse Resp BP Pulse Ox 98.8 F 70 18 108/50 96 09/14/16 08:00 09/14/16 08:23 09/14/16 08:23 09/14/16 07:36 09/14/16 07:36 General appearance: Present: no acute distress, well-nourished, other (nasal cannula oxygen) - EENT Eyes: Present: PERRL, EOM intact - Neck Neck: Present: supple, normal ROM - Respiratory Respiratory effort: normal Respiratory: bilateral: diminished, negative: rales, rhonchi, wheezing - Cardiovascular Rhythm: regular Heart Sounds: Present: S1 & S2 - Extremities Extremities: no ischemia, pulses intact, pulses symmetrical Peripheral Pulses: within normal limits - Abdominal General gastrointestinal: soft, non-tender, non-distended, normal bowel sounds - Integumentary Integumentary: Present: clear, warm - Psychiatric Psychiatric: appropriate mood/affect, cooperative - Neurologic Neurologic: moves all extremities Results - Labs CBC & Chem 7: 09/14/16 08:23 09/14/16 08:23 Labs: Laboratory Last Values WBC 9.0 K/mm3 (4.5-11.0) 09/14/16 08:23 RBC 2.89 M/mm3 (3.65-5.03) L 09/14/16 08:23 Hgb 9.0 gm/dl (11.8-15.2) L 09/14/16 08:23 Hct 27.7 % (35.5-45.6) L 09/14/16 08:23 MCV 96 fl (84-94) H D 09/14/16 08:23 MCH 31 pg (28-32) 09/14/16 08:23 MCHC 32 % (32-34) 09/14/16 08:23 RDW 20.9 % (13.2-15.2) H 09/14/16 08:23 Plt Count 102 K/mm3 (140-440) L 09/14/16 08:23 Lymph % (Auto) 2.5 % (13.4-35.0) L 09/13/16 05:10 [place] % (Auto) 6.3 % (0.0-7.3) 09/13/16 05:10 Eos % (Auto) 4.5 % (0.0-4.3) H 09/13/16 05:10 Baso % (Auto) 0.6 % (0.0-1.8) 09/13/16 05:10 Lymph # 0.4 K/mm3 (1.2-5.4) L 09/13/16 05:10 [place] # 0.9 K/mm3 (0.0-0.8) H 09/13/16 05:10 Eos # 0.7 K/mm3 (0.0-0.4) H 09/13/16 05:10 Baso # 0.1 K/mm3 (0.0-0.1) 09/13/16 05:10 Add Manual Diff Complete 09/11/16 16:22 Total Counted 100 09/11/16 16:22 Seg Neutrophils % Tile Finisher 09/14/16 08:23 Seg Neuts % (Manual) 53.0 % (40.0-70.0) 09/11/16 16:22 Band Neutrophils % 43.0 % 09/11/16 16:22 Lymphocytes % (Manual) 1.0 % (13.4-35.0) L 09/11/16 16:22 Reactive Lymphs % (Man) 0 % 09/11/16 16:22 Monocytes % (Manual) 3.0 % (0.0-7.3) 09/11/16 16:22 Eosinophils % (Manual) 0 % (0.0-4.3) 09/11/16 16:22 Basophils % (Manual) 0 % (0.0-1.8) 09/11/16 16:22 Metamyelocytes % 0 % 09/11/16 16:22 Myelocytes % 0 % 09/11/16 16:22 Promyelocytes % 0 % 09/11/16 16:22 Blast Cells % 0 % 09/11/16 16:22 Nucleated RBC % Not Reportable 09/11/16 16:22 Seg Neutrophils # 12.9 K/mm3 (1.8-7.7) H 09/13/16 05:10 Seg Neutrophils # Man 12.0 K/mm3 (1.8-7.7) H 09/11/16 16:22 Band Neutrophils # 9.8 K/mm3 09/11/16 16:22 Lymphocytes # (Manual) 0.2 K/mm3 (1.2-5.4) L 09/11/16 16:22 Abs React Lymphs (Man) 0.0 K/mm3 09/11/16 16:22 Monocytes # (Manual) 0.7 K/mm3 (0.0-0.8) 09/11/16 16:22 Eosinophils # (Manual) 0.0 K/mm3 (0.0-0.4) 09/11/16 16:22 Basophils # (Manual) 0.0 K/mm3 (0.0-0.1) 09/11/16 16:22 Metamyelocytes # 0.0 K/mm3 09/11/16 16:22 Myelocytes # 0.0 K/mm3 09/11/16 16:22 Promyelocytes # 0.0 K/mm3 09/11/16 16:22 Blast Cells # 0.0 K/mm3 09/11/16 16:22 WBC Morphology Not Reportable 09/11/16 16:22 Hypersegmented Neuts Not Reportable 09/11/16 16:22 Hyposegmented Neuts Not Reportable 09/11/16 16:22 Hypogranular Neuts Not Reportable 09/11/16 16:22 Smudge Cells Not Reportable 09/11/16 16:22 Toxic Granulation Not Reportable 09/11/16 16:22 Toxic Vacuolation Not Reportable 09/11/16 16:22 Dohle Bodies Not Reportable 09/11/16 16:22 Pelger-Huet Anomaly Not Reportable 09/11/16 16:22 Maia Rods Not Reportable 09/11/16 16:22 Platelet Estimate Consistent w auto 09/11/16 16:22 Clumped Platelets Not Reportable 09/11/16 16:22 Plt Clumps, EDTA Not Reportable 09/11/16 16:22 Large Platelets Not Reportable 09/11/16 16:22 Giant Platelets Not Reportable 09/11/16 16:22 Platelet Satelliting Not Reportable 09/11/16 16:22 Plt Morphology Comment Not Reportable 09/11/16 16:22 RBC Morphology Not Reportable 09/11/16 16:22 Dimorphic RBCs Not Reportable 09/11/16 16:22 Polychromasia Not Reportable 09/11/16 16:22 Hypochromasia Not Reportable 09/11/16 16:22 Poikilocytosis 1+ 09/11/16 16:22 Anisocytosis 1+ 09/11/16 16:22 Microcytosis Not Reportable 09/11/16 16:22 Macrocytosis Not Reportable 09/11/16 16:22 Spherocytes Not Reportable 09/11/16 16:22 Pappenheimer Bodies Not Reportable 09/11/16 16:22 Sickle Cells Not Reportable 09/11/16 16:22 Target Cells Not Reportable 09/11/16 16:22 Tear Drop Cells Not Reportable 09/11/16 16:22 Ovalocytes Not Reportable 09/11/16 16:22 Helmet Cells Not Reportable 09/11/16 16:22 [place] Bodies Not Reportable 09/11/16 16:22 [place] Rings Not Reportable 09/11/16 16:22 Toño Cells Not Reportable 09/11/16 16:22 Bite Cells Not Reportable 09/11/16 16:22 Crenated Cell Not Reportable 09/11/16 16:22 Elliptocytes 1+ 09/11/16 16:22 Acanthocytes (Spur) Not Reportable 09/11/16 16:22 Rouleaux Not Reportable 09/11/16 16:22 Hemoglobin C Crystals Not Reportable 09/11/16 16:22 Schistocytes Not Reportable 09/11/16 16:22 Malaria parasites Not Reportable 09/11/16 16:22 Nirav Bodies Not Reportable 09/11/16 16:22 Hem Pathologist Commnt No 09/11/16 16:22 PT 16.3 Sec. (12.2-14.9) H 09/11/16 16:22 INR 1.32 (0.87-1.13) H 09/11/16 16:22 APTT 29.7 Sec. (24.2-36.6) 09/11/16 16:22 D-Dimer 3181.50 ng/mlDDU (0-234) H 09/11/16 16:22 POC ABG pH 7.291 (7.35-7.45) L 09/13/16 20:40 POC ABG pCO2 54.4 (35-45) H 09/13/16 20:40 POC ABG pO2 64 (80-105) L 09/13/16 20:40 POC ABG HCO3 26.2 09/13/16 20:40 POC ABG Total CO2 28 09/13/16 20:40 POC ABG O2 Sat 89 09/13/16 20:40 POC ABG Base Excess 0 09/13/16 20:40 FiO2 30 % 09/13/16 20:40 Sodium 140 mmol/L (137-145) 09/14/16 08:23 Potassium 4.0 mmol/L (3.6-5.0) 09/14/16 08:23 Chloride 100.4 mmol/L (98-107) 09/14/16 08:23 Carbon Dioxide 23 mmol/L (22-30) 09/14/16 08:23 Anion Gap 21 mmol/L 09/14/16 08:23 BUN 45 mg/dL (9-20) H 09/14/16 08:23 Creatinine 5.2 mg/dL (0.8-1.5) H 09/14/16 08:23 Estimated GFR 11 ml/min 09/14/16 08:23 BUN/Creatinine Ratio 8.65 % 09/14/16 08:23 Glucose 88 mg/dL (75-100) 09/14/16 08:23 POC Glucose 85 (70-105) 09/11/16 22:50 Lactic Acid 0.60 mmol/L (0.7-2.0) L 09/12/16 10:14 Calcium 8.4 mg/dL (8.4-10.2) 09/14/16 08:23 Magnesium 1.90 mg/dL (1.7-2.3) 09/13/16 05:10 Total Bilirubin 0.40 mg/dL (0.1-1.2) 09/13/16 05:10 Direct Bilirubin < 0.2 mg/dL (0-0.2) 09/13/16 05:10 Indirect Bilirubin 0.2 mg/dL 09/13/16 05:10 AST 12 units/L (5-40) 09/13/16 05:10 ALT 14 units/L (7-56) 09/13/16 05:10 Alkaline Phosphatase 74 units/L (35-129) 09/13/16 05:10 Total Creatine Kinase 11 units/L (55-170) L 09/12/16 10:14 CK-MB (CK-2) 1.9 ng/mL (0.0-4.0) 09/12/16 10:14 CK-MB (CK-2) Rel Index 17.2 (0-4) H 09/12/16 10:14 Troponin T 0.071 ng/mL (0.00-0.029) H D 09/12/16 10:14 Total Protein 5.2 g/dL (6.3-8.2) L 09/13/16 05:10 Albumin 2.8 g/dL (3.9-5) L 09/13/16 05:10 Albumin/Globulin Ratio 1.2 % 09/13/16 05:10 Triglycerides 85 mg/dL (2-149) 09/11/16 16:22 Cholesterol 77 mg/dL (50-199) 09/11/16 16:22 LDL Cholesterol Direct 17 mg/dL (50-130) L 09/11/16 16:22 HDL Cholesterol 43 mg/dL (40-59) 09/11/16 16:22 Cholesterol/HDL Ratio 1.79 % 09/11/16 16:22 Urine Color Yellow (Yellow) 09/12/16 01:03 Urine Turbidity Clear (Clear) 09/12/16 01:03 Urine pH 6.0 (5.0-7.0) 09/12/16 01:03 Ur Specific [place] 1.010 (1.003-1.030) 09/12/16 01:03 Urine Protein 30 mg/dl mg/dL (Negative) 09/12/16 01:03 Urine Glucose (UA) 50 mg/dL (Negative) 09/12/16 01:03 Urine Ketones Neg mg/dL (Negative) 09/12/16 01:03 Urine Blood Neg (Negative) 09/12/16 01:03 Urine Nitrite Neg (Negative) 09/12/16 01:03 Urine Bilirubin Neg (Negative) 09/12/16 01:03 Urine Urobilinogen < 2.0 mg/dL (<2.0) 09/12/16 01:03 Ur Leukocyte Esterase Neg (Negative) 09/12/16 01:03 Urine WBC (Auto) 4.0 /HPF (0.0-6.0) 09/12/16 01:03 Urine RBC (Auto) 5.0 /HPF (0.0-6.0) 09/12/16 01:03 U Epithel Cells (Auto) < 1.0 /HPF (0-13.0) 09/12/16 01:03 Urine Bacteria (Auto) 1+ /HPF (Negative) 09/12/16 01:03
[2016-09-14 09:31] LABS: Anisocytosis 1+; Basophils % (Manual) 0 % (0.0-1.8); Blastocytes % (Manual) 0 %; Eosinophils % (Manual) 0 % (0.0-4.3); Poikilocytosis 1+
[2016-09-14 09:32] LABS: Burr Cells Few; Diff Status Complete; Elliptocytes Few; Ovalocytes 1+; Platelet Estimate Appears Decreased
[2016-09-14] MEDS: Renal Caps PO SCH (10:36)
[2016-09-14] MEDS: LEVAQUIN 500MG/100ML 500 MG/100 ML BAG IV SCH (10:36)
[2016-09-14] MEDS: HALFPRIN EC PO SCH (10:36)
[2016-09-14 10:39] LABS: ISTAT Base Excess -2; ISTAT HCO3 24.2; ISTAT PCO2 45.2 (35-45); ISTAT PH 7.336 (7.35-7.45); ISTAT PO2 62 (80-105); ISTAT SO2 90; ISTAT TCO2 26
--- NOTE | 2016-09-14 11:42 | Progress Note ---
Assessment and Plan End-stage renal disease currently on maintenance hemodialysis on Friday schedule Patient was felt to be unstable for hemodialysis yesterday Admitted with leukocytosis sepsis-like picture monitor hemodynamics, supportive care Respiratory failure in a patient who has severe COPD with ongoing chronic tobacco abuse up until recently he was also admitted at [facility] with similar symptoms Patient was started on IV steroid as she does have history of chronic COPD and has used IV steroid-induced off-and-on Hypotension was vasopressors to monitor IV steroid added with improvement in bp Rule out any other causes for hypotension, blood cultures negative for last 48 hours Monitor daily labs hemodialysis as hemodynamics allow Adequately counseled and educated about renal related issues Current hemoglobin 9.0, will need erythropoietin We'll continue to follow and make recommendation from renal standpoint Subjective Interval history: Patient was seen today for follow-up on multiple renal related issues Says I am better today BP still low no increase in SOB Events of 24 hours vitals labs intake output medications were reviewed Physical examination Vitals reviewed HEENT: Oral mucosa moist Neck: Supple no thyromegaly or JVD Chest: Bilateral wheezes and prolonged expiratory phase Cardiovascular: Regular rate and rhythm S1 and S2 heard Abdomen: Soft nontender no suprapubic mass no renal bruit Extremity: Edema minimal dry skin, no peripheral cyanosis Neurological: Alert awake follows commands Objective - Vital Signs Vital signs: Vital Signs - 12hr 09/14/16 09/14/16 09/14/16 00:00 00:41 00:51 Temperature 99.4 F Pulse Rate 68 64 64 Pulse Rate [ Anterior Bilateral Throughout] Respiratory 24 17 Rate Respiratory Rate [Anterior Bilateral Throughout] Blood Pressure 101/38 100/38 O2 Sat by Pulse 94 94 Oximetry 09/14/16 09/14/16 09/14/16 01:00 01:11 01:21 Temperature Pulse Rate 63 63 63 Pulse Rate [ Anterior Bilateral Throughout] Respiratory 25 H 25 H 24 Rate Respiratory Rate [Anterior Bilateral Throughout] Blood Pressure 96/37 96/37 96/37 O2 Sat by Pulse 94 95 94 Oximetry 09/14/16 09/14/16 09/14/16 01:30 01:41 01:51 Temperature Pulse Rate 63 63 60 Pulse Rate [ Anterior Bilateral Throughout] Respiratory 19 22 20 Rate Respiratory Rate [Anterior Bilateral Throughout] Blood Pressure 95/38 95/38 94/36 O2 Sat by Pulse 92 95 97 Oximetry 09/14/16 09/14/16 09/14/16 02:00 02:11 02:21 Temperature Pulse Rate 60 60 60 Pulse Rate [ Anterior Bilateral Throughout] Respiratory 20 20 20 Rate Respiratory Rate [Anterior Bilateral Throughout] Blood Pressure 91/37 91/37 107/40 O2 Sat by Pulse 96 96 97 Oximetry 09/14/16 09/14/16 09/14/16 02:31 02:41 02:51 Temperature Pulse Rate 63 60 62 Pulse Rate [ Anterior Bilateral Throughout] Respiratory 15 19 21 Rate Respiratory Rate [Anterior Bilateral Throughout] Blood Pressure 98/36 98/36 92/36 O2 Sat by Pulse 95 96 96 Oximetry 09/14/16 09/14/16 09/14/16 03:00 03:11 03:20 Temperature Pulse Rate 60 60 60 Pulse Rate [ Anterior Bilateral Throughout] Respiratory 20 20 20 Rate Respiratory Rate [Anterior Bilateral Throughout] Blood Pressure 97/38 97/38 91/37 O2 Sat by Pulse 95 96 97 Oximetry 09/14/16 09/14/16 09/14/16 03:21 03:30 03:41 Temperature Pulse Rate 60 60 60 Pulse Rate [ Anterior Bilateral Throughout] Respiratory 20 20 21 Rate Respiratory Rate [Anterior Bilateral Throughout] Blood Pressure 91/37 97/41 97/41 O2 Sat by Pulse 97 97 97 Oximetry 09/14/16 09/14/16 09/14/16 03:51 04:00 04:11 Temperature 99.8 F H Pulse Rate 61 61 62 Pulse Rate [ Anterior Bilateral Throughout] Respiratory 20 21 20 Rate Respiratory Rate [Anterior Bilateral Throughout] Blood Pressure 99/38 104/43 104/43 O2 Sat by Pulse 98 97 96 Oximetry 09/14/16 09/14/16 09/14/16 04:21 04:30 04:41 Temperature Pulse Rate 60 60 60 Pulse Rate [ Anterior Bilateral Throughout] Respiratory 20 20 21 Rate Respiratory Rate [Anterior Bilateral Throughout] Blood Pressure 100/43 103/40 104/43 O2 Sat by Pulse 97 97 98 Oximetry 09/14/16 09/14/16 09/14/16 04:51 05:01 05:11 Temperature Pulse Rate 61 60 64 Pulse Rate [ Anterior Bilateral Throughout] Respiratory 22 20 20 Rate Respiratory Rate [Anterior Bilateral Throughout] Blood Pressure 103/42 113/42 113/42 O2 Sat by Pulse 99 99 98 Oximetry 09/14/16 09/14/16 09/14/16 05:21 05:30 05:41 Temperature Pulse Rate 60 60 60 Pulse Rate [ Anterior Bilateral Throughout] Respiratory 20 20 20 Rate Respiratory Rate [Anterior Bilateral Throughout] Blood Pressure 106/40 111/45 111/45 O2 Sat by Pulse 98 97 97 Oximetry 09/14/16 09/14/16 09/14/16 05:51 06:00 06:11 Temperature Pulse Rate 60 60 60 Pulse Rate [ Anterior Bilateral Throughout] Respiratory 19 20 18 Rate Respiratory Rate [Anterior Bilateral Throughout] Blood Pressure 111/43 114/43 111/43 O2 Sat by Pulse 97 96 96 Oximetry 09/14/16 09/14/16 09/14/16 06:21 06:30 06:41 Temperature Pulse Rate 67 63 65 Pulse Rate [ Anterior Bilateral Throughout] Respiratory 21 21 21 Rate Respiratory Rate [Anterior Bilateral Throughout] Blood Pressure 96/36 110/44 114/43 O2 Sat by Pulse 97 98 97 Oximetry 09/14/16 09/14/16 09/14/16 06:51 07:00 07:11 Temperature Pulse Rate 62 66 64 Pulse Rate [ Anterior Bilateral Throughout] Respiratory 23 21 20 Rate Respiratory Rate [Anterior Bilateral Throughout] Blood Pressure 115/50 115/50 115/50 O2 Sat by Pulse 97 99 97 Oximetry 09/14/16 09/14/16 09/14/16 07:21 07:30 07:36 Temperature Pulse Rate 63 63 65 Pulse Rate [ Anterior Bilateral Throughout] Respiratory 19 22 20 Rate Respiratory Rate [Anterior Bilateral Throughout] Blood Pressure 117/50 108/50 108/50 O2 Sat by Pulse 96 97 96 Oximetry 09/14/16 09/14/16 09/14/16 07:41 07:51 08:00 Temperature 98.8 F Pulse Rate 64 63 63 Pulse Rate [ Anterior Bilateral Throughout] Respiratory 20 20 22 Rate Respiratory Rate [Anterior Bilateral Throughout] Blood Pressure 108/50 114/44 112/46 O2 Sat by Pulse 97 97 99 Oximetry 09/14/16 09/14/16 09/14/16 08:09 08:11 08:21 Temperature Pulse Rate 60 60 Pulse Rate [ 68 Anterior Bilateral Throughout] Respiratory 20 20 Rate Respiratory 20 Rate [Anterior Bilateral Throughout] Blood Pressure 112/46 112/49 O2 Sat by Pulse 98 97 Oximetry 09/14/16 09/14/16 09/14/16 08:23 08:30 08:41 Temperature Pulse Rate 60 64 Pulse Rate [ 70 Anterior Bilateral Throughout] Respiratory 20 17 Rate Respiratory 18 Rate [Anterior Bilateral Throughout] Blood Pressure 117/48 117/48 O2 Sat by Pulse 100 98 Oximetry 09/14/16 08:51 Temperature Pulse Rate 67 Pulse Rate [ Anterior Bilateral Throughout] Respiratory 16 Rate Respiratory Rate [Anterior Bilateral Throughout] Blood Pressure 121/46 O2 Sat by Pulse 96 Oximetry - Lab 09/15/16 04:45 09/15/16 04:45 Most recent lab results Calcium 8.4 mg/dL (8.4-10.2) 09/14/16 08:23 Magnesium 1.90 mg/dL (1.7-2.3) 09/13/16 05:10
[2016-09-14] MEDS: FLOMAX PO SCH (12:28)
--- NOTE | 2016-09-14 14:07 | Progress Note ---
Assessment and Plan 86 y/o male with acute hypercapnic respiratory failure, hypotension and ESRD and acidemia. 1. Wean Pressors for MAPS>65. Unsure of cause of hypotension currently. Echo shows dilated Left Ventricle and D shaped Right Ventricle secondary to volume overload. Likely could benefit from dialysis, will follow up renal recs. Hypotension is better this am 2. Stopped flomax, patient hypotensive and not making any urine 3. Continue to Hold all BP meds 4. Platelets dropping, on heparin. Will stop subQ therapy for now and send HIT antibody. 5. Hold on Picc line given renal disease, continue femoral line 6. Continue broad spec abx therapy for now, white count improved and cultures negative 7. Continue spiriva and PRN nebs. CCT 31 minutes. Subjective Date of service: 09/14/16 Interval history: No acute events overnight. Weaned off bipap this am. ABG better this am. No family at bedside. Renal Function is worse, did not get HD yesterday secondary to hypotension. Objective Vital Signs - 12hr 09/14/16 09/14/16 09/14/16 02:11 02:21 02:31 Temperature Pulse Rate 60 60 63 Pulse Rate [ Anterior Bilateral Throughout] Respiratory 20 20 15 Rate Respiratory Rate [Anterior Bilateral Throughout] Blood Pressure 91/37 107/40 98/36 O2 Sat by Pulse 96 97 95 Oximetry 09/14/16 09/14/16 09/14/16 02:41 02:51 03:00 Temperature Pulse Rate 60 62 60 Pulse Rate [ Anterior Bilateral Throughout] Respiratory 19 21 20 Rate Respiratory Rate [Anterior Bilateral Throughout] Blood Pressure 98/36 92/36 97/38 O2 Sat by Pulse 96 96 95 Oximetry 09/14/16 09/14/16 09/14/16 03:11 03:20 03:21 Temperature Pulse Rate 60 60 60 Pulse Rate [ Anterior Bilateral Throughout] Respiratory 20 20 20 Rate Respiratory Rate [Anterior Bilateral Throughout] Blood Pressure 97/38 91/37 91/37 O2 Sat by Pulse 96 97 97 Oximetry 09/14/16 09/14/16 09/14/16 03:30 03:41 03:51 Temperature Pulse Rate 60 60 61 Pulse Rate [ Anterior Bilateral Throughout] Respiratory 20 21 20 Rate Respiratory Rate [Anterior Bilateral Throughout] Blood Pressure 97/41 97/41 99/38 O2 Sat by Pulse 97 97 98 Oximetry 09/14/16 09/14/1609/14/17 04:00 04:11 04:21 Temperature 99.8 F H Pulse Rate 61 62 60 Pulse Rate [ Anterior Bilateral Throughout] Respiratory 21 20 20 Rate Respiratory Rate [Anterior Bilateral Throughout] Blood Pressure 104/43 104/43 100/43 O2 Sat by Pulse 97 96 97 Oximetry 09/14/16 09/14/16 09/14/16 04:30 04:41 04:51 Temperature Pulse Rate 60 60 61 Pulse Rate [ Anterior Bilateral Throughout] Respiratory 20 21 22 Rate Respiratory Rate [Anterior Bilateral Throughout] Blood Pressure 103/40 104/43 103/42 O2 Sat by Pulse 97 98 99 Oximetry 09/14/16 09/14/16 09/14/16 05:01 05:11 05:21 Temperature Pulse Rate 60 64 60 Pulse Rate [ Anterior Bilateral Throughout] Respiratory 20 20 20 Rate Respiratory Rate [Anterior Bilateral Throughout] Blood Pressure 113/42 113/42 106/40 O2 Sat by Pulse 99 98 98 Oximetry 09/14/16 09/14/16 09/14/16 05:30 05:41 05:51 Temperature Pulse Rate 60 60 60 Pulse Rate [ Anterior Bilateral Throughout] Respiratory 20 20 19 Rate Respiratory Rate [Anterior Bilateral Throughout] Blood Pressure 111/45 111/45 111/43 O2 Sat by Pulse 97 97 97 Oximetry 09/14/16 09/14/16 09/14/16 06:00 06:11 06:21 Temperature Pulse Rate 60 60 67 Pulse Rate [ Anterior Bilateral Throughout] Respiratory 20 18 21 Rate Respiratory Rate [Anterior Bilateral Throughout] Blood Pressure 114/43 111/43 96/36 O2 Sat by Pulse 96 96 97 Oximetry 09/14/16 09/14/16 09/14/16 06:30 06:41 06:51 Temperature Pulse Rate 63 65 62 Pulse Rate [ Anterior Bilateral Throughout] Respiratory 21 21 23 Rate Respiratory Rate [Anterior Bilateral Throughout] Blood Pressure 110/44 114/43 115/50 O2 Sat by Pulse 98 97 97 Oximetry 09/14/16 09/14/16 09/14/16 07:00 07:11 07:21 Temperature Pulse Rate 66 64 63 Pulse Rate [ Anterior Bilateral Throughout] Respiratory 21 20 19 Rate Respiratory Rate [Anterior Bilateral Throughout] Blood Pressure 115/50 115/50 117/50 O2 Sat by Pulse 99 97 96 Oximetry 09/14/16 09/14/16 09/14/16 07:30 07:36 07:41 Temperature Pulse Rate 63 65 64 Pulse Rate [ Anterior Bilateral Throughout] Respiratory 22 20 20 Rate Respiratory Rate [Anterior Bilateral Throughout] Blood Pressure 108/50 108/50 108/50 O2 Sat by Pulse 97 96 97 Oximetry 09/14/16 09/14/16 09/14/16 07:51 08:00 08:09 Temperature 98.8 F Pulse Rate 63 63 Pulse Rate [ 68 Anterior Bilateral Throughout] Respiratory 20 22 Rate Respiratory 20 Rate [Anterior Bilateral Throughout] Blood Pressure 114/44 112/46 O2 Sat by Pulse 97 99 Oximetry 09/14/16 09/14/16 09/14/16 08:11 08:21 08:23 Temperature Pulse Rate 60 60 Pulse Rate [ 70 Anterior Bilateral Throughout] Respiratory 20 20 Rate Respiratory 18 Rate [Anterior Bilateral Throughout] Blood Pressure 112/46 112/49 O2 Sat by Pulse 98 97 Oximetry 09/14/16 09/14/16 09/14/16 08:30 08:41 08:51 Temperature Pulse Rate 60 64 67 Pulse Rate [ Anterior Bilateral Throughout] Respiratory 20 17 16 Rate Respiratory Rate [Anterior Bilateral Throughout] Blood Pressure 117/48 117/48 121/46 O2 Sat by Pulse 100 98 96 Oximetry 09/14/16 09/14/16 09/14/16 10:00 12:00 13:14 Temperature 99 F Pulse Rate Pulse Rate [ 64 Anterior Bilateral Throughout] Respiratory Rate Respiratory 19 Rate [Anterior Bilateral Throughout] Blood Pressure O2 Sat by Pulse 97 Oximetry 09/14/16 13:42 Temperature Pulse Rate Pulse Rate [ 66 Anterior Bilateral Throughout] Respiratory Rate Respiratory 18 Rate [Anterior Bilateral Throughout] Blood Pressure O2 Sat by Pulse Oximetry Constitutional: no acute distress ENT: oropharynx moist Neck: supple Effort: mildly labored Ascultation: Bilateral: clear CBC and BMP: 09/14/16 08:23 09/14/16 08:23 ABG, PT/INR, D-dimer: ABG POC ABG pH 7.336 (7.35-7.45) L 09/14/16 10:32 POC ABG pCO2 45.2 (35-45) H 09/14/16 10:32 POC ABG pO2 62 (80-105) L 09/14/16 10:32 POC ABG HCO3 24.2 09/14/16 10:32 POC ABG Total CO2 26 09/14/16 10:32 POC ABG O2 Sat 90 09/14/16 10:32 PT/INR, D-dimer PT 16.3 Sec. (12.2-14.9) H 09/11/16 16:22 INR 1.32 (0.87-1.13) H 09/11/16 16:22 D-Dimer 3181.50 ng/mlDDU (0-234) H 09/11/16 16:22 Abnormal lab findings: Abnormal Labs 09/11/16 09/11/16 09/11/16 20:02 20:02 23:16 WBC RBC Hgb Hct MCV MCHC RDW Plt Count Lymph % (Auto) Eos % (Auto) Lymph # [place] # Eos # Seg Neutrophils % Seg Neuts % (Manual) Lymphocytes % (Manual) Seg Neutrophils # Seg Neutrophils # Man Lymphocytes # (Manual) POC ABG pH POC ABG pCO2 61.0 H POC ABG pO2 151 H BUN Creatinine Glucose Lactic Acid 0.50 L Total Creatine Kinase 983 H CK-MB (CK-2) 16.9 H CK-MB (CK-2) Rel Index Troponin T 0.053 H D Total Protein Albumin 09/12/16 09/12/16 09/13/16 10:14 10:14 01:11 WBC RBC Hgb Hct MCV MCHC RDW Plt Count Lymph % (Auto) Eos % (Auto) Lymph # [place] # Eos # Seg Neutrophils % Seg Neuts % (Manual) Lymphocytes % (Manual) Seg Neutrophils # Seg Neutrophils # Man Lymphocytes # (Manual) POC ABG pH 7.187 L POC ABG pCO2 79.8 H POC ABG pO2 BUN Creatinine Glucose Lactic Acid 0.60 L Total Creatine Kinase 11 L CK-MB (CK-2) CK-MB (CK-2) Rel Index 17.2 H Troponin T 0.071 H D Total Protein Albumin 09/13/16 09/13/16 09/13/16 05:10 05:10 07:29 WBC 14.9 H RBC 3.23 L Hgb 9.7 L Hct 31.9 L MCV 99 H MCHC 30 L RDW 21.2 H Plt Count 138 L Lymph % (Auto) 2.5 L Eos % (Auto) 4.5 H Lymph # 0.4 L [place] # 0.9 H Eos # 0.7 H Seg Neutrophils % 86.1 H Seg Neuts % (Manual) Lymphocytes % (Manual) Seg Neutrophils # 12.9 H Seg Neutrophils # Man Lymphocytes # (Manual) POC ABG pH 7.174 L POC ABG pCO2 77.8 H POC ABG pO2 BUN 29 H Creatinine 4.0 H D Glucose 74 L Lactic Acid Total Creatine Kinase CK-MB (CK-2) CK-MB (CK-2) Rel Index Troponin T Total Protein 5.2 L Albumin 2.8 L 09/13/16 09/13/16 09/13/16 10:42 15:55 20:10 WBC RBC Hgb Hct MCV MCHC RDW Plt Count Lymph % (Auto) Eos % (Auto) Lymph # [place] # Eos # Seg Neutrophils % Seg Neuts % (Manual) Lymphocytes % (Manual) Seg Neutrophils # Seg Neutrophils # Man Lymphocytes # (Manual) POC ABG pH 7.234 L 7.256 L 7.287 L POC ABG pCO2 65.2 H 64.3 H 58.4 H POC ABG pO2 62 L 61 L 23 L BUN Creatinine Glucose Lactic Acid Total Creatine Kinase CK-MB (CK-2) CK-MB (CK-2) Rel Index Troponin T Total Protein Albumin 09/13/16 09/14/16 09/14/16 20:40 08:23 08:23 WBC RBC 2.89 L Hgb 9.0 L Hct 27.7 L MCV 96 H D MCHC RDW 20.9 H Plt Count 102 L Lymph % (Auto) Eos % (Auto) Lymph # [place] # Eos # Seg Neutrophils % Seg Neuts % (Manual) 91.0 H Lymphocytes % (Manual) 0 L Seg Neutrophils # Seg Neutrophils # Man 8.2 H Lymphocytes # (Manual) 0.0 L POC ABG pH 7.291 L POC ABG pCO2 54.4 H POC ABG pO2 64 L BUN 45 H Creatinine 5.2 H Glucose Lactic Acid Total Creatine Kinase CK-MB (CK-2) CK-MB (CK-2) Rel Index Troponin T Total Protein Albumin 09/14/16 10:32 WBC RBC Hgb Hct MCV MCHC RDW Plt Count Lymph % (Auto) Eos % (Auto) Lymph # [place] # Eos # Seg Neutrophils % Seg Neuts % (Manual) Lymphocytes % (Manual) Seg Neutrophils # Seg Neutrophils # Man Lymphocytes # (Manual) POC ABG pH 7.336 L POC ABG pCO2 45.2 H POC ABG pO2 62 L BUN Creatinine Glucose Lactic Acid Total Creatine Kinase CK-MB (CK-2) CK-MB (CK-2) Rel Index Troponin T Total Protein Albumin
[2016-09-14 19:25] LABS: BUN/Creatinine Ratio 9.28; Calcium 8.1 mg/dL (8.4-10.2); Chloride 98.6 mmol/L (98-107); Phosphorous 5.1 mg/dL (2.5-4.5); Potassium 4.1 mmol/L (3.6-5.0)
[2016-09-14] MEDS: SPIRIVA IH SCH (19:59)
[2016-09-14] MEDS ORDERED: WATER FOR INJ (PF) 10 ML ONE (23:11)
[2016-09-15 05:20] LABS: Hematocrit 26.9 % (35.5-45.6); Hemoglobin 8.5 gm/dl (11.8-15.2); Mean Corpuscular HGB Conc 32 % (32-34); Mean Corpuscular Hemoglobin 30 pg (28-32); Mean Corpuscular Volume 95 fl (84-94); Red Blood Count 2.82 M/mm3 (3.65-5.03); White Blood Count 12.4 K/mm3 (4.5-11.0)
[2016-09-15 05:21] LABS: Platelet Count 96 K/mm3 (140-440); Red Cell Distribution Width 21.3 % (13.2-15.2)
[2016-09-15] MEDS: HEPARIN SUB-Q SCH (05:24)
[2016-09-15] MEDS: ZOSYN/NS 2.25 GM/50ML 2.25 GM/50 ML BAG IV SCH ×3 (05:24→22:00)
[2016-09-15 05:45] LABS: BUN/Creatinine Ratio 10.5; Calcium 8.3 mg/dL (8.4-10.2); Chloride 98.4 mmol/L (98-107); Magnesium 2.1 mg/dL (1.7-2.3); Potassium 4.3 mmol/L (3.6-5.0)
[2016-09-15 06:49] LABS: Anisocytosis 1+; Basophils % (Manual) 0 % (0.0-1.8); Blastocytes % (Manual) 0 %; Diff Status Complete; Eosinophils % (Manual) 0 % (0.0-4.3); Platelet Estimate Consistent w Auto; Poikilocytosis 1+
[2016-09-15] MEDS: ATROVENT IH SCH ×3 (07:33→21:13)
[2016-09-15] MEDS: PHOSLO PO SCH ×3 (07:55→17:02)
--- NOTE | 2016-09-15 08:27 | Progress Note ---
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 Patient is awake and alert. he is conversational. Breathing comfortably on ventimask. Objective Vital Signs Temp Pulse Pulse Pulse Resp Resp Resp 09/15/16 08:00 98.4 F 09/15/16 07:50 78 18 09/15/16 07:35 09/15/16 07:34 76 18 09/15/16 07:30 71 29 H 09/15/16 07:00 68 28 H 09/15/16 06:30 67 26 H 09/15/16 06:00 69 24 09/15/16 05:30 65 22 09/15/16 05:00 71 24 09/15/16 04:31 68 24 09/15/16 04:00 69 18 09/15/16 03:50 67 22 09/15/16 03:36 99.1 F 09/15/16 03:30 66 23 09/15/16 03:00 65 15 09/15/16 02:43 66 09/15/16 02:30 65 27 H 09/15/16 02:01 66 27 H 09/15/16 01:30 67 28 H 09/15/16 01:00 66 22 09/15/16 00:36 26 H 09/15/16 00:30 67 20 09/15/16 00:21 66 26 H 09/15/16 00:11 64 24 09/15/16 00:00 98.8 F 66 24 09/14/16 23:51 67 28 H 09/14/16 23:41 65 21 09/14/16 23:30 69 22 09/14/16 23:21 66 23 09/14/16 23:11 66 24 09/14/16 23:00 66 27 H 09/14/16 22:51 65 20 09/14/16 22:41 66 15 09/14/16 22:31 68 22 09/14/16 22:21 66 27 H 09/14/16 22:11 65 22 09/14/16 22:00 68 21 09/14/16 21:51 70 29 H 09/14/16 21:41 68 19 09/14/16 21:30 69 24 09/14/16 21:21 69 26 H 09/14/16 21:11 66 24 09/14/16 21:00 69 29 H 09/14/16 20:51 68 25 H 09/14/16 20:50 70 27 H 09/14/16 20:48 74 28 H 09/14/16 20:41 68 26 H 09/14/16 20:30 70 26 H 09/14/16 20:21 71 27 H 09/14/16 20:11 73 29 H 09/14/16 20:00 73 26 H 09/14/16 19:56 98.7 F 09/14/16 19:51 72 30 H 09/14/16 19:45 74 22 09/14/16 19:41 69 27 H 09/14/16 19:40 09/14/16 19:35 67 20 09/14/16 19:30 68 21 09/14/16 19:21 67 29 H 09/14/16 19:11 67 18 09/14/16 19:00 66 30 H 09/14/16 18:51 67 30 H 09/14/16 18:41 66 20 09/14/16 18:30 65 26 H 09/14/16 18:21 65 24 09/14/16 18:11 63 27 H 09/14/16 18:00 64 25 H 09/14/16 17:51 64 24 09/14/16 17:41 64 25 H 09/14/16 17:30 63 24 09/14/16 17:21 63 25 H 09/14/16 17:11 64 25 H 09/14/16 17:00 65 27 H 09/14/16 16:51 67 17 09/14/16 16:41 64 24 09/14/16 16:30 61 25 H 09/14/16 16:21 63 26 H 09/14/16 16:11 63 25 H 09/14/16 16:00 98.5 F 64 21 09/14/16 15:51 65 18 09/14/16 15:41 66 22 0610/17 15:30 64 23 09/14/16 15:21 64 24 09/14/16 15:11 64 19 09/14/16 15:00 66 27 H 09/14/16 14:51 64 18 09/14/16 14:41 65 20 09/14/16 14:30 68 26 H 09/14/16 14:21 66 27 H 09/14/16 14:11 67 24 09/14/16 14:00 69 29 H 09/14/16 13:51 73 29 H 09/14/16 13:42 66 18 09/14/16 13:41 72 22 09/14/16 13:30 71 19 09/14/16 13:21 67 28 H 09/14/16 13:14 64 19 09/14/16 13:11 66 30 H 09/14/16 13:00 66 28 H 09/14/16 12:51 65 22 09/14/16 12:41 65 27 H 09/14/16 12:30 66 21 09/14/16 12:21 66 17 09/14/16 12:11 67 12 09/14/16 12:00 99 F 69 14 09/14/16 11:51 65 20 09/14/16 11:41 65 14 09/14/16 11:30 67 24 09/14/16 11:21 66 20 09/14/16 11:11 66 11 L 09/14/16 11:00 66 20 09/14/16 10:51 66 21 09/14/16 10:41 66 25 H 09/14/16 10:30 66 22 09/14/16 10:21 67 13 09/14/16 10:11 67 24 09/14/16 10:00 67 22 09/14/16 09:51 66 25 H 09/14/16 08:51 67 16 09/14/16 08:41 64 17 09/14/16 08:30 60 20 BP Pulse Ox 09/15/16 08:00 09/15/16 07:50 09/15/16 07:35 97 09/15/16 07:34 09/15/16 07:30 112/49 97 09/15/16 07:00 108/45 97 09/15/16 06:30 99/46 95 09/15/16 06:00 95/43 95 09/15/16 05:30 106/44 95 09/15/16 05:00 106/50 97 09/15/16 04:31 111/50 97 09/15/16 04:00 98/44 94 09/15/16 03:50 09/15/16 03:36 09/15/16 03:30 105/45 96 09/15/16 03:00 106/45 96 09/15/16 02:43 09/15/16 02:30 106/46 96 09/15/16 02:01 103/47 95 09/15/16 01:30 100/45 98 09/15/16 01:00 107/49 98 09/15/16 00:36 09/15/16 00:30 103/47 95 09/15/16 00:21 106/44 95 09/15/16 00:11 104/44 96 09/15/16 00:00 104/44 99 09/14/16 23:51 105/42 95 09/14/16 23:41 103/49 95 09/14/16 23:30 103/49 93 09/14/16 23:21 100/48 94 09/14/16 23:11 106/45 91 09/14/16 23:00 106/45 97 09/14/16 22:51 101/48 98 09/14/16 22:41 115/43 92 09/14/16 22:31 115/43 92 09/14/16 22:21 104/44 91 09/14/16 22:11 100/48 97 09/14/16 22:00 100/48 94 09/14/16 21:51 106/47 96 09/14/16 21:41 115/43 95 09/14/16 21:30 106/47 93 09/14/16 21:21 105/45 92 09/14/16 21:11 110/40 92 09/14/16 21:00 115/43 90 09/14/16 20:51 110/40 92 09/14/16 20:50 110/40 92 09/14/16 20:48 110/40 93 09/14/16 20:41 104/43 97 09/14/16 20:30 104/43 97 09/14/16 20:21 110/40 97 09/14/16 20:11 111/46 97 09/14/16 20:00 111/46 96 09/14/16 19:56 09/14/16 19:51 105/53 95 09/14/16 19:45 09/14/16 19:41 112/44 100 09/14/16 19:40 95 09/14/16 19:35 09/14/16 19:30 112/44 91 09/14/16 19:21 118/42 98 09/14/16 19:11 115/45 96 09/14/16 19:00 115/45 94 09/14/16 18:51 125/47 95 09/14/16 18:41 119/51 99 09/14/16 18:30 119/51 98 09/14/16 18:21 117/51 95 09/14/16 18:11 115/49 97 09/14/16 18:00 115/49 95 09/14/16 17:51 119/48 95 09/14/16 17:41 120/46 96 09/14/16 17:30 120/46 96 09/14/16 17:21 115/46 98 09/14/16 17:11 115/46 97 09/14/16 17:00 115/46 97 09/14/16 16:51 118/46 98 09/14/16 16:41 116/46 100 09/14/16 16:30 116/46 98 09/14/16 16:21 114/44 97 09/14/16 16:11 111/41 98 09/14/16 16:00 111/41 97 09/14/16 15:51 107/39 95 09/14/16 15:41 109/42 93 09/14/16 15:30 109/42 96 09/14/16 15:21 107/41 96 09/14/16 15:11 101/35 95 09/14/16 15:00 101/35 97 09/14/16 14:51 108/38 97 09/14/16 14:41 108/38 95 09/14/16 14:30 108/38 97 09/14/16 14:21 109/41 98 09/14/16 14:11 117/44 97 09/14/16 14:00 117/44 98 09/14/16 13:51 122/48 97 09/14/16 13:42 09/14/16 13:41 117/37 98 09/14/16 13:30 117/37 100 09/14/16 13:21 124/44 100 09/14/16 13:14 09/14/16 13:11 126/46 96 09/14/16 13:00 126/46 100 09/14/16 12:51 125/44 97 09/14/16 12:41 127/51 99 09/14/16 12:30 127/51 100 09/14/16 12:21 131/47 98 09/14/16 12:11 123/49 99 09/14/16 12:00 123/49 97 09/14/16 11:51 122/49 100 09/14/16 11:41 126/50 100 09/14/16 11:30 126/50 100 09/14/16 11:21 125/48 98 09/14/16 11:11 119/42 98 09/14/16 11:00 119/42 95 09/14/16 10:51 122/45 95 09/14/16 10:41 120/45 94 09/14/16 10:30 120/45 95 09/14/16 10:21 121/43 96 09/14/16 10:11 116/45 93 09/14/16 10:00 116/45 93 09/14/16 09:51 115/44 93 09/14/16 08:51 121/46 96 09/14/16 08:41 117/48 98 09/14/16 08:30 117/48 100 - Labs and Meds CBC 09/14/16 09/15/16 Range/Units 08:23 04:45 WBC 9.0 12.4 H (4.5-11.0) K/mm3 RBC 2.89 L 2.82 L (3.65-5.03) M/mm3 Hgb 9.0 L 8.5 L (11.8-15.2) gm/dl Hct 27.7 L 26.9 L (35.5-45.6) % Plt Count 102 L 96 L (140-440) K/mm3 Comprehensive Metabolic Panel 09/14/16 09/14/16 09/15/16 Range/Units 08:23 18:43 04:45 Sodium 140 138 142 (137-145) mmol/L Potassium 4.0 4.1 4.3 (3.6-5.0) mmol/L Chloride 100.4 98.6 98.4 (98-107) mmol/L Carbon Dioxide 23 25 27 (22-30) mmol/L BUN 45 H 52 H 62 H (9-20) mg/dL Creatinine 5.2 H 5.6 H 5.9 H (0.8-1.5) mg/dL Glucose 88 101 H 170 H (75-100) mg/dL Calcium 8.4 8.1 L 8.3 L (8.4-10.2) mg/dL
--- NOTE | 2016-09-15 09:39 | Progress Note ---
Assessment and Plan Assessment and plan: --Sepsis/leukocytosis cultures negative to date, WBC trending down, complete antibiotics for 5 days and DC --Septic shock requiring pressors Off Levophed, blood pressures normal range --Chronic respiratory failure requiring noninvasive ventilation Saturating well on nasal cannula oxygen, continue current management --End-stage renal disease on hemodialysis hemodialysis per schedule, urology following --Hypertension; BP normal range antihypertensive needed --History of coronary artery disease is post CABG Patient has mild elevation of troponins, probably secondary to end-stage renal disease, Cardiology following --History of congestive heart failure/diastolic dysfunction continue current cardiac medications, hemodialysis per schedule --Dyslipidemia; continue statin --Full CODE STATUS Closely monitor the patient and adjust the management as needed Patient stable to be transferred out of ICU to telemetry Physical therapy occupational therapy DC planning. Case management; possible placement versus home with home health in 1-2 days if stable History Interval history: Patient seen and evaluated in ICU this morning medical records reviewed No new events reported by the nursing staff, patient is off Levophed Alert awake oriented, responding appropriately No new complaints Hospitalist Physical - Constitutional Vitals: Temp Pulse Resp BP Pulse Ox 98.4 F 78 18 112/49 97 09/15/16 08:00 09/15/16 07:50 09/15/16 07:50 09/15/16 07:30 09/15/16 07:35 General appearance: Present: no acute distress, well-nourished, other (nasal cannula oxygen) - EENT Eyes: Present: PERRL, EOM intact - Neck Neck: Present: supple, normal ROM - Respiratory Respiratory effort: normal Respiratory: negative: rales, rhonchi, wheezing - Cardiovascular Rhythm: regular Heart Sounds: Present: S1 & S2 - Extremities Extremities: no ischemia, pulses intact, pulses symmetrical Peripheral Pulses: within normal limits - Abdominal General gastrointestinal: soft, non-tender, non-distended, normal bowel sounds - Integumentary Integumentary: Present: clear, warm - Psychiatric Psychiatric: appropriate mood/affect, cooperative - Neurologic Neurologic: moves all extremities Results - Labs CBC & Chem 7: 09/15/16 04:45 09/15/16 04:45 Labs: Laboratory Last Values WBC 12.4 K/mm3 (4.5-11.0) H 09/15/16 04:45 RBC 2.82 M/mm3 (3.65-5.03) L 09/15/16 04:45 Hgb 8.5 gm/dl (11.8-15.2) L 09/15/16 04:45 Hct 26.9 % (35.5-45.6) L 09/15/16 04:45 MCV 95 fl (84-94) H 09/15/16 04:45 MCH 30 pg (28-32) 09/15/16 04:45 MCHC 32 % (32-34) 09/15/16 04:45 RDW 21.3 % (13.2-15.2) H 09/15/16 04:45 Plt Count 96 K/mm3 (140-440) L 09/15/16 04:45 Lymph % (Auto) 2.5 % (13.4-35.0) L 09/13/16 05:10 [place] % (Auto) 6.3 % (0.0-7.3) 09/13/16 05:10 Eos % (Auto) 4.5 % (0.0-4.3) H 09/13/16 05:10 Baso % (Auto) 0.6 % (0.0-1.8) 09/13/16 05:10 Lymph # 0.4 K/mm3 (1.2-5.4) L 09/13/16 05:10 [place] # 0.9 K/mm3 (0.0-0.8) H 09/13/16 05:10 Eos # 0.7 K/mm3 (0.0-0.4) H 09/13/16 05:10 Baso # 0.1 K/mm3 (0.0-0.1) 09/13/16 05:10 Add Manual Diff Complete 09/15/16 04:45 Total Counted 100 09/15/16 04:45 Seg Neutrophils % Communication Manager 09/15/16 04:45 Seg Neuts % (Manual) 87.0 % (40.0-70.0) H 09/15/16 04:45 Band Neutrophils % 8.0 % 09/15/16 04:45 Lymphocytes % (Manual) 2.0 % (13.4-35.0) L 09/15/16 04:45 Reactive Lymphs % (Man) 0 % 09/15/16 04:45 Monocytes % (Manual) 3.0 % (0.0-7.3) 09/15/16 04:45 Eosinophils % (Manual) 0 % (0.0-4.3) 09/15/16 04:45 Basophils % (Manual) 0 % (0.0-1.8) 09/15/16 04:45 Metamyelocytes % 0 % 09/15/16 04:45 Myelocytes % 0 % 09/15/16 04:45 Promyelocytes % 0 % 09/15/16 04:45 Blast Cells % 0 % 09/15/16 04:45 Nucleated RBC % Not Reportable 09/15/16 04:45 Seg Neutrophils # 12.9 K/mm3 (1.8-7.7) H 09/13/16 05:10 Seg Neutrophils # Man 10.8 K/mm3 (1.8-7.7) H 09/15/16 04:45 Band Neutrophils # 1.0 K/mm3 09/15/16 04:45 Lymphocytes # (Manual) 0.2 K/mm3 (1.2-5.4) L 09/15/16 04:45 Abs React Lymphs (Man) 0.0 K/mm3 09/15/16 04:45 Monocytes # (Manual) 0.4 K/mm3 (0.0-0.8) 09/15/16 04:45 Eosinophils # (Manual) 0.0 K/mm3 (0.0-0.4) 09/15/16 04:45 Basophils # (Manual) 0.0 K/mm3 (0.0-0.1) 09/15/16 04:45 Metamyelocytes # 0.0 K/mm3 09/15/16 04:45 Myelocytes # 0.0 K/mm3 09/15/16 04:45 Promyelocytes # 0.0 K/mm3 09/15/16 04:45 Blast Cells # 0.0 K/mm3 09/15/16 04:45 WBC Morphology Not Reportable 09/15/16 04:45 Hypersegmented Neuts Not Reportable 09/15/16 04:45 Hyposegmented Neuts Not Reportable 09/15/16 04:45 Hypogranular Neuts Not Reportable 09/15/16 04:45 Smudge Cells Not Reportable 09/15/16 04:45 Toxic Granulation Not Reportable 09/15/16 04:45 Toxic Vacuolation Not Reportable 09/15/16 04:45 Dohle Bodies Not Reportable 09/15/16 04:45 Pelger-Huet Anomaly Not Reportable 09/15/16 04:45 Maia Rods Not Reportable 09/15/16 04:45 Platelet Estimate Consistent w auto 09/15/16 04:45 Clumped Platelets Not Reportable 09/15/16 04:45 Plt Clumps, EDTA Not Reportable 09/15/16 04:45 Large Platelets Not Reportable 09/15/16 04:45 Giant Platelets Not Reportable 09/15/16 04:45 Platelet Satelliting Not Reportable 09/15/16 04:45 Plt Morphology Comment Not Reportable 09/15/16 04:45 RBC Morphology Not Reportable 09/15/16 04:45 Dimorphic RBCs Not Reportable 09/15/16 04:45 Polychromasia Not Reportable 09/15/16 04:45 Hypochromasia Not Reportable 09/15/16 04:45 Poikilocytosis 1+ 09/15/16 04:45 Anisocytosis 1+ 09/15/16 04:45 Microcytosis Not Reportable 09/15/16 04:45 Macrocytosis Not Reportable 09/15/16 04:45 Spherocytes Not Reportable 09/15/16 04:45 Pappenheimer Bodies Not Reportable 09/15/16 04:45 Sickle Cells Not Reportable 09/15/16 04:45 Target Cells Not Reportable 09/15/16 04:45 Tear Drop Cells Not Reportable 09/15/16 04:45 Ovalocytes Not Reportable 09/15/16 04:45 Helmet Cells Not Reportable 09/15/16 04:45 [place] Bodies Not Reportable 09/15/16 04:45 [place] Rings Not Reportable 09/15/16 04:45 [place] Cells Not Reportable 09/15/16 04:45 Bite Cells Not Reportable 09/15/16 04:45 Crenated Cell Not Reportable 09/15/16 04:45 Elliptocytes Not Reportable 09/15/16 04:45 Acanthocytes (Spur) Not Reportable 09/15/16 04:45 Rouleaux Not Reportable 09/15/16 04:45 Hemoglobin C Crystals Not Reportable 09/15/16 04:45 Schistocytes Not Reportable 09/15/16 04:45 Malaria parasites Not Reportable 09/15/16 04:45 Nirav Bodies Not Reportable 09/15/16 04:45 Hem Pathologist Commnt No 09/15/16 04:45 PT 16.3 Sec. (12.2-14.9) H 09/11/16 16:22 INR 1.32 (0.87-1.13) H 09/11/16 16:22 APTT 29.7 Sec. (24.2-36.6) 09/11/16 16:22 D-Dimer 3181.50 ng/mlDDU (0-234) H 09/11/16 16:22 POC ABG pH 7.336 (7.35-7.45) L 09/14/16 10:32 POC ABG pCO2 45.2 (35-45) H 09/14/16 10:32 POC ABG pO2 62 (80-105) L 09/14/16 10:32 POC ABG HCO3 24.2 09/14/16 10:32 POC ABG Total CO2 26 09/14/16 10:32 POC ABG O2 Sat 90 09/14/16 10:32 POC ABG Base Excess -2 09/14/16 10:32 FiO2 32 % 09/14/16 10:32 Sodium 142 mmol/L (137-145) 09/15/16 04:45 Potassium 4.3 mmol/L (3.6-5.0) 09/15/16 04:45 Chloride 98.4 mmol/L (98-107) 09/15/16 04:45 Carbon Dioxide 27 mmol/L (22-30) 09/15/16 04:45 Anion Gap 21 mmol/L 09/15/16 04:45 BUN 62 mg/dL (9-20) H 09/15/16 04:45 Creatinine 5.9 mg/dL (0.8-1.5) H 09/15/16 04:45 Estimated GFR 9 ml/min 09/15/16 04:45 BUN/Creatinine Ratio 10.50 % 09/15/16 04:45 Glucose 170 mg/dL (75-100) H 09/15/16 04:45 POC Glucose 239 (70-105) H 09/14/16 23:38 Lactic Acid 0.60 mmol/L (0.7-2.0) L 09/12/16 10:14 Calcium 8.3 mg/dL (8.4-10.2) L 09/15/16 04:45 Phosphorus 5.10 mg/dL (2.5-4.5) H 09/14/16 18:43 Magnesium 2.10 mg/dL (1.7-2.3) 09/15/16 04:45 Total Bilirubin 0.40 mg/dL (0.1-1.2) 09/13/16 05:10 Direct Bilirubin < 0.2 mg/dL (0-0.2) 09/13/16 05:10 Indirect Bilirubin 0.2 mg/dL 09/13/16 05:10 AST 12 units/L (5-40) 09/13/16 05:10 ALT 14 units/L (7-56) 09/13/16 05:10 Alkaline Phosphatase 74 units/L (35-129) 09/13/16 05:10 Total Creatine Kinase 11 units/L (55-170) L 09/12/16 10:14 CK-MB (CK-2) 1.9 ng/mL (0.0-4.0) 09/12/16 10:14 CK-MB (CK-2) Rel Index 17.2 (0-4) H 09/12/16 10:14 Troponin T 0.071 ng/mL (0.00-0.029) H D 09/12/16 10:14 Total Protein 5.2 g/dL (6.3-8.2) L 09/13/16 05:10 Albumin 2.8 g/dL (3.9-5) L 09/13/16 05:10 Albumin/Globulin Ratio 1.2 % 09/13/16 05:10 Triglycerides 85 mg/dL (2-149) 09/11/16 16:22 Cholesterol 77 mg/dL (50-199) 09/11/16 16:22 LDL Cholesterol Direct 17 mg/dL (50-130) L 09/11/16 16:22 HDL Cholesterol 43 mg/dL (40-59) 09/11/16 16:22 Cholesterol/HDL Ratio 1.79 % 09/11/16 16:22 PTH Intact 182.1 pg/mL (15-65) H 09/14/16 18:43 Urine Color Yellow (Yellow) 09/12/16 01:03 Urine Turbidity Clear (Clear) 09/12/16 01:03 Urine pH 6.0 (5.0-7.0) 09/12/16 01:03 Ur Specific [place] 1.010 (1.003-1.030) 09/12/16 01:03 Urine Protein 30 mg/dl mg/dL (Negative) 09/12/16 01:03 Urine Glucose (UA) 50 mg/dL (Negative) 09/12/16 01:03 Urine Ketones Neg mg/dL (Negative) 09/12/16 01:03 Urine Blood Neg (Negative) 09/12/16 01:03 Urine Nitrite Neg (Negative) 09/12/16 01:03 Urine Bilirubin Neg (Negative) 09/12/16 01:03 Urine Urobilinogen < 2.0 mg/dL (<2.0) 09/12/16 01:03 Ur Leukocyte Esterase Neg (Negative) 09/12/16 01:03 Urine WBC (Auto) 4.0 /HPF (0.0-6.0) 09/12/16 01:03 Urine RBC (Auto) 5.0 /HPF (0.0-6.0) 09/12/16 01:03 U Epithel Cells (Auto) < 1.0 /HPF (0-13.0) 09/12/16 01:03 Urine Bacteria (Auto) 1+ /HPF (Negative) 09/12/16 01:03 Random Vancomycin 12.6 ug/mL (0-40.0) 09/14/16 08:23
[2016-09-15] MEDS: Renal Caps PO SCH (09:40)
[2016-09-15] MEDS ORDERED: VANCOMYCIN/NS 1 GM/250 ML 1 GM/250 ML BAG IV ONE (10:00)
[2016-09-15] MEDS: HALFPRIN EC PO SCH (11:09)
--- NOTE | 2016-09-15 11:35 | Progress Note ---
Assessment and Plan 86 y/o male with acute hypercapnic respiratory failure, hypotension and ESRD and acidemia. 1. BP better, remains off pressors. 2. Stopped flomax, patient hypotensive and not making any urine 3. Continue to Hold all BP meds 4. Platelets dropping, on heparin. Will stop subQ therapy for now and send HIT antibody. 5. Hold on Picc line given renal disease, continue femoral line. HD today per renal. 6. Continue broad spec abx therapy for now, white count improved and cultures negative 7. Continue spiriva and PRN nebs. 8. If tolerates HD, pending the time, could leave ICU today vs tomorrow morning. Needs to continue bipap therapy at night Subjective Date of service: 09/15/16 Interval history: No acute events overnight. Remains off levophed. Breathing is stable. Per renal, will do HD today. Objective Vital Signs - 12hr 09/14/16 09/14/16 09/15/16 23:41 23:51 00:00 Temperature 98.8 F Pulse Rate 65 67 66 Pulse Rate [ Anterior Bilateral Throughout] Pulse Rate [ From Monitor] Respiratory 21 28 H 24 Rate Respiratory Rate [Anterior Bilateral Throughout] Respiratory Rate [no pain] Blood Pressure 103/49 105/42 104/44 O2 Sat by Pulse 95 95 99 Oximetry 09/15/16 09/15/16 09/15/16 00:11 00:21 00:30 Temperature Pulse Rate 64 66 67 Pulse Rate [ Anterior Bilateral Throughout] Pulse Rate [ From Monitor] Respiratory 24 26 H 20 Rate Respiratory Rate [Anterior Bilateral Throughout] Respiratory Rate [no pain] Blood Pressure 104/44 106/44 103/47 O2 Sat by Pulse 96 95 95 Oximetry 09/15/16 09/15/16 09/15/16 00:36 01:00 01:30 Temperature Pulse Rate 66 67 Pulse Rate [ Anterior Bilateral Throughout] Pulse Rate [ From Monitor] Respiratory 22 28 H Rate Respiratory Rate [Anterior Bilateral Throughout] Respiratory 26 H Rate [no pain] Blood Pressure 107/49 100/45 O2 Sat by Pulse 98 98 Oximetry 09/15/16 09/15/16 09/15/16 02:01 02:30 02:43 Temperature Pulse Rate 66 65 66 Pulse Rate [ Anterior Bilateral Throughout] Pulse Rate [ From Monitor] Respiratory 27 H 27 H Rate Respiratory Rate [Anterior Bilateral Throughout] Respiratory Rate [no pain] Blood Pressure 103/47 106/46 O2 Sat by Pulse 95 96 Oximetry 09/15/16 09/15/16 09/15/16 03:00 03:30 03:36 Temperature 99.1 F Pulse Rate 65 66 Pulse Rate [ Anterior Bilateral Throughout] Pulse Rate [ From Monitor] Respiratory 15 23 Rate Respiratory Rate [Anterior Bilateral Throughout] Respiratory Rate [no pain] Blood Pressure 106/45 105/45 O2 Sat by Pulse 96 96 Oximetry 09/15/16 09/15/16 09/15/16 03:50 04:00 04:31 Temperature Pulse Rate 69 68 Pulse Rate [ Anterior Bilateral Throughout] Pulse Rate [ 67 From Monitor] Respiratory 22 18 24 Rate Respiratory Rate [Anterior Bilateral Throughout] Respiratory Rate [no pain] Blood Pressure 98/44 111/50 O2 Sat by Pulse 94 97 Oximetry 09/15/16 09/15/16 09/15/16 05:00 05:30 06:00 Temperature Pulse Rate 71 65 69 Pulse Rate [ Anterior Bilateral Throughout] Pulse Rate [ From Monitor] Respiratory 24 22 24 Rate Respiratory Rate [Anterior Bilateral Throughout] Respiratory Rate [no pain] Blood Pressure 106/50 106/44 95/43 O2 Sat by Pulse 97 95 95 Oximetry 09/15/16 09/15/16 09/15/16 06:30 07:00 07:30 Temperature Pulse Rate 67 68 71 Pulse Rate [ Anterior Bilateral Throughout] Pulse Rate [ From Monitor] Respiratory 26 H 28 H 29 H Rate Respiratory Rate [Anterior Bilateral Throughout] Respiratory Rate [no pain] Blood Pressure 99/46 108/45 112/49 O2 Sat by Pulse 95 97 97 Oximetry 09/15/16 09/15/16 09/15/16 07:34 07:35 07:50 Temperature Pulse Rate Pulse Rate [ 76 78 Anterior Bilateral Throughout] Pulse Rate [ From Monitor] Respiratory Rate Respiratory 18 18 Rate [Anterior Bilateral Throughout] Respiratory Rate [no pain] Blood Pressure O2 Sat by Pulse 97 Oximetry 09/15/16 09/15/16 09/15/16 08:00 08:30 09:00 Temperature 98.4 F Pulse Rate 70 64 67 Pulse Rate [ Anterior Bilateral Throughout] Pulse Rate [ From Monitor] Respiratory 27 H 19 25 H Rate Respiratory Rate [Anterior Bilateral Throughout] Respiratory Rate [no pain] Blood Pressure 109/46 103/41 99/43 O2 Sat by Pulse 96 97 97 Oximetry 09/15/16 09/15/1617 09:30 10:00 10:30 Temperature Pulse Rate 68 64 63 Pulse Rate [ Anterior Bilateral Throughout] Pulse Rate [ From Monitor] Respiratory 27 H 21 20 Rate Respiratory Rate [Anterior Bilateral Throughout] Respiratory Rate [no pain] Blood Pressure 108/48 109/45 105/42 O2 Sat by Pulse 96 96 96 Oximetry 09/15/16 11:00 Temperature Pulse Rate 63 Pulse Rate [ Anterior Bilateral Throughout] Pulse Rate [ From Monitor] Respiratory 18 Rate Respiratory Rate [Anterior Bilateral Throughout] Respiratory Rate [no pain] Blood Pressure 108/46 O2 Sat by Pulse 97 Oximetry Constitutional: no acute distress ENT: oropharynx moist Neck: supple Effort: mildly labored Ascultation: Bilateral: clear CBC and BMP: 09/15/16 04:45 09/15/16 04:45 ABG, PT/INR, D-dimer: ABG POC ABG pH 7.336 (7.35-7.45) L 09/14/16 10:32 POC ABG pCO2 45.2 (35-45) H 09/14/16 10:32 POC ABG pO2 62 (80-105) L 09/14/16 10:32 POC ABG HCO3 24.2 09/14/16 10:32 POC ABG Total CO2 26 09/14/16 10:32 POC ABG O2 Sat 90 09/14/16 10:32 PT/INR, D-dimer PT 16.3 Sec. (12.2-14.9) H 09/11/16 16:22 INR 1.32 (0.87-1.13) H 09/11/16 16:22 D-Dimer 3181.50 ng/mlDDU (0-234) H 09/11/16 16:22 Abnormal lab findings: Abnormal Labs 09/11/16 09/11/16 09/11/16 20:02 20:02 23:16 WBC RBC Hgb Hct MCV MCHC RDW Plt Count Lymph % (Auto) Eos % (Auto) Lymph # [place] # Eos # Seg Neutrophils % Seg Neuts % (Manual) Lymphocytes % (Manual) Seg Neutrophils # Seg Neutrophils # Man Lymphocytes # (Manual) POC ABG pH POC ABG pCO2 61.0 H POC ABG pO2 151 H BUN Creatinine Glucose POC Glucose Lactic Acid 0.50 L Calcium Phosphorus Total Creatine Kinase 983 H CK-MB (CK-2) 16.9 H CK-MB (CK-2) Rel Index Troponin T 0.053 H D Total Protein Albumin PTH Intact 09/12/16 09/12/16 09/13/16 10:14 10:14 01:11 WBC RBC Hgb Hct MCV MCHC RDW Plt Count Lymph % (Auto) Eos % (Auto) Lymph # [place] # Eos # Seg Neutrophils % Seg Neuts % (Manual) Lymphocytes % (Manual) Seg Neutrophils # Seg Neutrophils # Man Lymphocytes # (Manual) POC ABG pH 7.187 L POC ABG pCO2 79.8 H POC ABG pO2 BUN Creatinine Glucose POC Glucose Lactic Acid 0.60 L Calcium Phosphorus Total Creatine Kinase 11 L CK-MB (CK-2) CK-MB (CK-2) Rel Index 17.2 H Troponin T 0.071 H D Total Protein Albumin PTH Intact 09/13/16 09/13/16 09/13/16 05:10 05:10 07:29 WBC 14.9 H RBC 3.23 L Hgb 9.7 L Hct 31.9 L MCV 99 H MCHC 30 L RDW 21.2 H Plt Count 138 L Lymph % (Auto) 2.5 L Eos % (Auto) 4.5 H Lymph # 0.4 L [place] # 0.9 H Eos # 0.7 H Seg Neutrophils % 86.1 H Seg Neuts % (Manual) Lymphocytes % (Manual) Seg Neutrophils # 12.9 H Seg Neutrophils # Man Lymphocytes # (Manual) POC ABG pH 7.174 L POC ABG pCO2 77.8 H POC ABG pO2 BUN 29 H Creatinine 4.0 H D Glucose 74 L POC Glucose Lactic Acid Calcium Phosphorus Total Creatine Kinase CK-MB (CK-2) CK-MB (CK-2) Rel Index Troponin T Total Protein 5.2 L Albumin 2.8 L PTH Intact 09/13/16 09/13/16 09/13/16 10:42 15:55 20:10 WBC RBC Hgb Hct MCV MCHC RDW Plt Count Lymph % (Auto) Eos % (Auto) Lymph # [place] # Eos # Seg Neutrophils % Seg Neuts % (Manual) Lymphocytes % (Manual) Seg Neutrophils # Seg Neutrophils # Man Lymphocytes # (Manual) POC ABG pH 7.234 L 7.256 L 7.287 L POC ABG pCO2 65.2 H 64.3 H 58.4 H POC ABG pO2 62 L 61 L 23 L BUN Creatinine Glucose POC Glucose Lactic Acid Calcium Phosphorus Total Creatine Kinase CK-MB (CK-2) CK-MB (CK-2) Rel Index Troponin T Total Protein Albumin PTH Intact 09/13/16 09/14/16 09/14/16 20:40 08:23 08:23 WBC RBC 2.89 L Hgb 9.0 L Hct 27.7 L MCV 96 H D MCHC RDW 20.9 H Plt Count 102 L Lymph % (Auto) Eos % (Auto) Lymph # [place] # Eos # Seg Neutrophils % Seg Neuts % (Manual) 91.0 H Lymphocytes % (Manual) 0 L Seg Neutrophils # Seg Neutrophils # Man 8.2 H Lymphocytes # (Manual) 0.0 L POC ABG pH 7.291 L POC ABG pCO2 54.4 H POC ABG pO2 64 L BUN 45 H Creatinine 5.2 H Glucose POC Glucose Lactic Acid Calcium Phosphorus Total Creatine Kinase CK-MB (CK-2) CK-MB (CK-2) Rel Index Troponin T Total Protein Albumin PTH Intact 09/14/16 09/14/16 09/14/16 10:32 18:43 18:43 WBC RBC Hgb Hct MCV MCHC RDW Plt Count Lymph % (Auto) Eos % (Auto) Lymph # [place] # Eos # Seg Neutrophils % Seg Neuts % (Manual) Lymphocytes % (Manual) Seg Neutrophils # Seg Neutrophils # Man Lymphocytes # (Manual) POC ABG pH 7.336 L POC ABG pCO2 45.2 H POC ABG pO2 62 L BUN 52 H Creatinine 5.6 H Glucose 101 H POC Glucose Lactic Acid Calcium 8.1 L Phosphorus 5.10 H Total Creatine Kinase CK-MB (CK-2) CK-MB (CK-2) Rel Index Troponin T Total Protein Albumin PTH Intact 182.1 H 09/14/16 09/15/16 09/15/16 23:38 04:45 04:45 WBC 12.4 H RBC 2.82 L Hgb 8.5 L Hct 26.9 L MCV 95 H MCHC RDW 21.3 H Plt Count 96 L Lymph % (Auto) Eos % (Auto) Lymph # [place] # Eos # Seg Neutrophils % Seg Neuts % (Manual) 87.0 H Lymphocytes % (Manual) 2.0 L Seg Neutrophils # Seg Neutrophils # Man 10.8 H Lymphocytes # (Manual) 0.2 L POC ABG pH POC ABG pCO2 POC ABG pO2 BUN 62 H Creatinine 5.9 H Glucose 170 H POC Glucose 239 H Lactic Acid Calcium 8.3 L Phosphorus Total Creatine Kinase CK-MB (CK-2) CK-MB (CK-2) Rel Index Troponin T Total Protein Albumin PTH Intact
--- NOTE | 2016-09-15 12:22 | Progress Note ---
Assessment and Plan End-stage renal disease patient is currently on maintenance hemodialysis Admitted with episode of unresponsiveness on dialysis Patient needs judicious ultrafiltration close monitoring of hemodynamics Would like to dialyze him today short treatment Patient also has COPD and was profoundly hypotensive on Levothroidm, responded well to IV Solu-Medrol as well Does have prior history of coronary artery disease congestive heart failure Was smoking up until recently has had a similar admission at [facility] Also has pacemaker defibrillator Overall prognosis is very poor due to multiple comorbidities advanced age and chronic noncompliance Hemoglobin is 8.5, blood cultures showing no growth potassium is 4.3 calcium 8.3 Subjective Interval history: Patient was seen today for follow-up on multiple renal related issues He is feeling much better today less short of breath did not dialyze ever since he came in Currently denying any complaints of chest pain pressure nausea or vomiting Events of 24 hours vitals labs intake output medications were reviewed Physical examination Vitals reviewed HEENT: Oral mucosa moist Neck: Supple no thyromegaly or JVD Chest: Bilateral wheezes and prolonged expiratory phase Cardiovascular: Regular rate and rhythm S1 and S2 heard Abdomen: Soft nontender no suprapubic mass no renal bruit Extremity: Edema minimal dry skin, no peripheral cyanosis Neurological: Alert awake follows commands Objective - Vital Signs Vital signs: Vital Signs - 12hr 09/15/16 09/15/16 09/15/16 00:30 00:36 01:00 Temperature Pulse Rate 67 66 Pulse Rate [ Anterior Bilateral Throughout] Pulse Rate [ From Monitor] Respiratory 20 22 Rate Respiratory Rate [Anterior Bilateral Throughout] Respiratory 26 H Rate [no pain] Blood Pressure 103/47 107/49 O2 Sat by Pulse 95 98 Oximetry 09/15/16 09/15/16 09/15/16 01:30 02:01 02:30 Temperature Pulse Rate 67 66 65 Pulse Rate [ Anterior Bilateral Throughout] Pulse Rate [ From Monitor] Respiratory 28 H 27 H 27 H Rate Respiratory Rate [Anterior Bilateral Throughout] Respiratory Rate [no pain] Blood Pressure 100/45 103/47 106/46 O2 Sat by Pulse 98 95 96 Oximetry 09/15/16 09/15/16 09/15/16 02:43 03:00 03:30 Temperature Pulse Rate 66 65 66 Pulse Rate [ Anterior Bilateral Throughout] Pulse Rate [ From Monitor] Respiratory 15 23 Rate Respiratory Rate [Anterior Bilateral Throughout] Respiratory Rate [no pain] Blood Pressure 106/45 105/45 O2 Sat by Pulse 96 96 Oximetry 09/15/16 09/15/16 09/15/16 03:36 03:50 04:00 Temperature 99.1 F Pulse Rate 69 Pulse Rate [ Anterior Bilateral Throughout] Pulse Rate [ 67 From Monitor] Respiratory 22 18 Rate Respiratory Rate [Anterior Bilateral Throughout] Respiratory Rate [no pain] Blood Pressure 98/44 O2 Sat by Pulse 94 Oximetry 09/15/16 09/15/16 09/15/16 04:31 05:00 05:30 Temperature Pulse Rate 68 71 65 Pulse Rate [ Anterior Bilateral Throughout] Pulse Rate [ From Monitor] Respiratory 24 24 22 Rate Respiratory Rate [Anterior Bilateral Throughout] Respiratory Rate [no pain] Blood Pressure 111/50 106/50 106/44 O2 Sat by Pulse 97 97 95 Oximetry 09/15/16 09/15/16 09/15/16 06:00 06:30 07:00 Temperature Pulse Rate 69 67 68 Pulse Rate [ Anterior Bilateral Throughout] Pulse Rate [ From Monitor] Respiratory 24 26 H 28 H Rate Respiratory Rate [Anterior Bilateral Throughout] Respiratory Rate [no pain] Blood Pressure 95/43 99/46 108/45 O2 Sat by Pulse 95 95 97 Oximetry 09/15/16 09/15/16 09/15/16 07:30 07:34 07:35 Temperature Pulse Rate 71 Pulse Rate [ 76 Anterior Bilateral Throughout] Pulse Rate [ From Monitor] Respiratory 29 H Rate Respiratory 18 Rate [Anterior Bilateral Throughout] Respiratory Rate [no pain] Blood Pressure 112/49 O2 Sat by Pulse 97 97 Oximetry 09/15/16 09/15/16 09/15/16 07:45 07:50 08:00 Temperature 98.4 F Pulse Rate 70 Pulse Rate [ 78 Anterior Bilateral Throughout] Pulse Rate [ 68 From Monitor] Respiratory 25 H 27 H Rate Respiratory 18 Rate [Anterior Bilateral Throughout] Respiratory Rate [no pain] Blood Pressure 109/46 O2 Sat by Pulse 95 96 Oximetry 09/15/16 09/15/16 09/15/16 08:30 09:00 09:30 Temperature Pulse Rate 64 67 68 Pulse Rate [ Anterior Bilateral Throughout] Pulse Rate [ From Monitor] Respiratory 19 25 H 27 H Rate Respiratory Rate [Anterior Bilateral Throughout] Respiratory Rate [no pain] Blood Pressure 103/41 99/43 108/48 O2 Sat by Pulse 97 97 96 Oximetry 09/15/16 09/15/16 09/15/16 10:00 10:30 11:00 Temperature Pulse Rate 64 63 63 Pulse Rate [ Anterior Bilateral Throughout] Pulse Rate [ From Monitor] Respiratory 21 20 18 Rate Respiratory Rate [Anterior Bilateral Throughout] Respiratory Rate [no pain] Blood Pressure 109/45 105/42 108/46 O2 Sat by Pulse 96 96 97 Oximetry - Lab 09/15/16 04:45 09/15/16 04:45 Most recent lab results Calcium 8.3 mg/dL (8.4-10.2) L 09/15/16 04:45 Phosphorus 5.10 mg/dL (2.5-4.5) H 09/14/16 18:43 Magnesium 2.10 mg/dL (1.7-2.3) 09/15/16 04:45
--- NOTE | 2016-09-15 12:39 | Consultation ---
REASON FOR CONSULTATION AND HISTORY OF PRESENT ILLNESS: Management of end-stage renal disease in a patient who has been accepted here after he was brought into the ER when he became unresponsive. The dialysis and chest compressions were initiated. The patient subsequently became more responsive. EMS was called in, and at that time, he was transported to the ER. On the way, he was noted to have a pulse ox of 70%. He is currently on noninvasive vent support with vasopressor. The patient has been a chronic smoker and was also recently admitted to [facility] with respiratory failure. He was smoking up until his last admission. Currently, he is very unstable for hemodialysis, but is able to open his eyes and follow me and he regards me as his kidney doctor. His potassium is currently stable. Other labs are also reviewed. PAST MEDICAL HISTORY: Significant for, 1. End-stage renal disease, currently on maintenance hemodialysis on Friday, Friday, Friday. 2. 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 3. Secondary hyperparathyroidism. 4. COPD. 5. Coronary artery disease. 6. Status post coronary artery bypass graft. CURRENT ALLERGIES: None. HOME MEDICATIONS: 1. Amiodarone. 2. Aspirin. 3. Calcium acetate. 4. Carvedilol. 5. Crestor. 6. VESIcare. 7. Flomax. 8. Dialyvite. 9. Spiriva. SOCIAL HISTORY: The patient has been a chronic smoker up until recently. He is , lives with his family. FAMILY HISTORY: Essentially positive for hypertension. REVIEW OF SYSTEMS: Limited as the patient is on noninvasive ventilator. He denies having any chest pain, pressure. Has shortness of breath, but indicates that he is doing better. No complaints of any nausea or vomiting. Complete review of systems are obtained, but limited as the patient is on BiPAP mask. PHYSICAL EXAMINATION: GENERAL: The patient is a pleasant 86-year-old male whom I have known for many years. He is alert, awake, confused, but still able to answer most of the questions fairly well. VITAL SIGNS: Reviewed from this admission. HEENT: Normocephalic, atraumatic skull. Extraocular movements are intact. Oral mucosa moist. Mild pallor. NECK: Supple without thyromegaly, no JVD. CHEST: Prolonged expiratory phase, some wheezes at the lower part of the lung, crackles as well as diminished breath sounds at the lung bases posteriorly. HEART: Regular rate. Normal S1, S2 heard. No S3, S4. ABDOMEN: Soft, nontender. No voluntary guarding, rigidity or rebound. No organomegaly, no masses. EXTREMITIES: The patient does not have edema. Peripheral pulses palpable. No acute discoloration, cyanosis. Fistula appears to have good thrill and bruit. LABORATORY DATA: Labs and x-rays were reviewed from this admission. As of today, white cell count 14.9, hemoglobin 9.7, hematocrit 31.9, platelet count 138,000. Sodium 141, potassium 3.6, chloride 100, bicarbonate 28, BUN 9, creatinine of 4. Lactic acid was 0.5. Troponin was 0.053. ASSESSMENT AND PLAN: 1. End-stage renal disease. The patient is currently on maintenance hemodialysis on Friday, Friday, and Friday as scheduled. He became unresponsive during hemodialysis and is also currently not stable for dialysis given that he is on vasopressor. He needs to be monitored closely. His electrolytes appear to be stable. He does not appear to have any significant fluid overload. 2. He has hypotension, unclear etiology in a patient who has also been a chronic smoker, COPD. I would like to add empiric steroids to see if it helps improve his blood pressure. 3. Leukocytosis and sepsis like picture being ruled out. Monitor hemodynamics and supportive care. 4. Chronic hypertension in a patient who is a COPDier. I believe he will benefit from some degree of steroid that can be given along with Florinef depending on how he tolerates. Alternatively, midodrine can be added 5 mg once a day. 5. Currently on vasopressor, unstable for dialysis, to reassess in the morning. 6. Severe chronic obstructive pulmonary disease, currently on BiPAP, noninvasive ventilator to follow. 7. 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 Current hemoglobin is 9, will need erythropoietin. Plan of care discussed with patient. All questions were answered. At this time, I would like to review him again on a daily basis, order labs periodically to monitor his potassium, hemoglobin. I believe giving him steroid will be a good idea to follow his blood pressure and see if we can get off the Levophed. Overall prognosis remains guarded to poor given that he is 86-year-old with multiple comorbidities which are quite severe. Mortality risk is also high in his case too. Dr. Dr. Peggy Tello, I appreciate you sharing his care plan, continue to follow him along with you. Thank you for consultation. JOB# [id number] CALEB/ALONZO
[2016-09-16] MEDS: ZOSYN/NS 2.25 GM/50ML 2.25 GM/50 ML BAG IV SCH ×3 (05:41→22:22)
[2016-09-16 06:39] LABS: Hematocrit 28.5 % (35.5-45.6); Mean Corpuscular HGB Conc 32 % (32-34); Mean Corpuscular Hemoglobin 30 pg (28-32); Mean Corpuscular Volume 95 fl (84-94); Red Blood Count 3.01 M/mm3 (3.65-5.03); White Blood Count 11.8 K/mm3 (4.5-11.0)
[2016-09-16 06:49] LABS: Platelet Count 81 K/mm3 (140-440); Red Cell Distribution Width 20.9 % (13.2-15.2)
[2016-09-16 06:51] LABS: BUN/Creatinine Ratio 11.69; Calcium 8.6 mg/dL (8.4-10.2); Chloride 98.4 mmol/L (98-107); Potassium 4.5 mmol/L (3.6-5.0)
[2016-09-16] MEDS: ATROVENT IH SCH ×3 (08:06→19:35)
--- NOTE | 2016-09-16 09:18 | Progress Note ---
Assessment and Plan - Patient Problems (1) ESRD (end stage renal disease) Current Visit: Yes Status: Acute Plan to address problem: HD on M/W/F. Chronic hypotension. UF as tolerated (2) Physical deconditioning Current Visit: Yes Status: Chronic (3) Anemia in CKD (chronic kidney disease) Current Visit: Yes Status: Chronic Qualifiers: Chronic kidney disease stage: C Plan to address problem: Epogen per protocol (4) COPD (chronic obstructive pulmonary disease) Current Visit: Yes Status: Chronic Qualifiers: COPD type: unspecified COPD Chronic bronchitis type: C Emphysema type: E Qualified Code(s): J44.9 - Chronic obstructive pulmonary disease, unspecified (5) Congestive heart failure (CHF) Current Visit: Yes Status: Chronic Qualifiers: Congestive heart failure type: diastolic Congestive heart failure chronicity: acute on chronic Qualified Code(s): I50.33 - Acute on chronic diastolic (congestive) heart failure (6) Acute and chronic respiratory failure ([id number]) Current Visit: No Status: Acute Qualifiers: Respiratory failure complication: R (7) Acute on chronic diastolic heart failure Current Visit: No Status: Acute Subjective Date of service: 09/16/16 Interval history: alert, chronically ill looking, frail male Objective - Vital Signs Vital signs: Vital Signs - 12hr 09/15/16 09/16/16 09/16/16 23:31 00:00 04:00 Temperature 97.7 F 97.7 F Pulse Rate 66 Pulse Rate [ Anterior Bilateral Throughout] Pulse Rate [ 63 63 From Monitor] Respiratory 21 20 20 Rate Respiratory Rate [Anterior Bilateral Throughout] Blood Pressure 133/60 126/60 [Left Arm] O2 Sat by Pulse 93 93 95 Oximetry 09/16/16 09/16/16 08:00 08:07 Temperature Pulse Rate Pulse Rate [ 61 61 Anterior Bilateral Throughout] Pulse Rate [ From Monitor] Respiratory Rate Respiratory 17 17 Rate [Anterior Bilateral Throughout] Blood Pressure [Left Arm] O2 Sat by Pulse 98 Oximetry - General Appearance General appearance: chronically ill EENT: mucous membranes dry Neck: no JVD Respiratory: Present: Decreased Breath Sounds Cardiology: regular, systolic murmur Gastrointestinal: normoactive bowel sounds Neurologic: alert and oriented x3 Musculoskeletal: other (right arm AV access has bruit and thrill, skin brittle) - Lab 09/16/16 06:11 09/16/16 06:11 Most recent lab results Calcium 8.6 mg/dL (8.4-10.2) 09/16/16 06:11 Phosphorus 5.10 mg/dL (2.5-4.5) H 09/14/16 18:43 Magnesium 2.10 mg/dL (1.7-2.3) 09/15/16 04:45
[2016-09-16] MEDS ORDERED: NACL 0.9% 100 ML IV PRN (10:00)
[2016-09-16 10:01] LABS: Anisocytosis 1+; Blastocytes % (Manual) 0 %; Poikilocytosis 1+; Polychromasia Few
[2016-09-16 10:02] LABS: Diff Status Complete; Elliptocytes Few; Ovalocytes 1+; Platelet Estimate Consistent w Auto; Target Cells Few
[2016-09-16] MEDS: PHOSLO PO SCH ×3 (11:49→17:20)
[2016-09-16] MEDS: HALFPRIN EC PO SCH (11:50)
[2016-09-16] MEDS: LEVAQUIN 500MG/100ML 500 MG/100 ML BAG IV SCH (11:50)
[2016-09-16] MEDS: Renal Caps PO SCH (11:51)
--- NOTE | 2016-09-16 12:46 | Progress Note ---
Assessment and Plan Acute Respiratory failure d/t volume overload Hypotension during HD Elevated D-dimer no evidence of PE by V\Q scan ESRD on HD Hx of COPD Hx of CAD s/p 3 vessel CABG and PCI Hx of paroxysmal Afib on amiodarone as an outpatient; currently on hold d/t pulmonary disease Presence of PPM ([place]) Echo reports a moderate to severe TR with a dilated RA and evidence of severe pulmonary hypertension. There is a moderate aortic stenosis with a preserved LVEF 55-60%. Conservative cardiac management. Subjective Date of service: 09/16/16 Interval history: Patient is resting in bed comfortably. He denies chest pain and shortness of breath. Objective Vital Signs Temp Pulse Pulse Pulse Pulse Resp Resp 09/16/16 12:30 65 09/16/16 12:15 63 09/16/16 12:00 64 09/16/16 11:45 62 09/16/16 11:30 63 09/16/16 11:15 61 09/16/16 11:05 59 L 09/16/16 11:00 97.1 F L 59 L 20 09/16/16 08:07 61 17 09/16/16 08:00 97.6 F 61 63 20 17 09/16/16 04:00 97.7 F 63 20 09/16/16 00:00 97.7 F 63 20 09/15/16 23:31 66 21 09/15/16 21:12 09/15/16 21:11 70 18 09/15/16 21:04 67 09/15/16 21:00 66 20 09/15/16 20:00 97.6 F 67 20 09/15/16 16:00 98.1 F 68 67 22 09/15/16 14:15 68 16 09/15/16 14:09 66 16 09/15/16 14:08 09/15/16 12:57 98.2 F 65 20 BP BP Pulse Ox 09/16/16 12:30 110/54 09/16/16 12:15 110/51 09/16/16 12:00 110/51 09/16/16 11:45 113/55 09/16/16 11:30 107/48 09/16/16 11:15 115/45 09/16/16 11:05 106/42 09/16/16 11:00 111/52 09/16/16 08:07 98 09/16/16 08:00 123/60 99 09/16/16 04:00 126/60 95 09/16/16 00:00 133/60 93 09/15/16 23:31 93 09/15/16 21:12 96 09/15/16 21:11 09/15/16 21:04 95 09/15/16 21:00 09/15/16 20:00 136/62 95 09/15/16 16:00 121/53 97 09/15/16 14:15 09/15/16 14:09 09/15/16 14:08 93 09/15/16 12:57 111/57 90 - Physical Examination General: No Apparent Distress HEENT: Positive: PERRL Neck: Positive: trachea midline Cardiac: Positive: Reg Rate and Rhythm - Labs and Meds CBC 09/16/16 Range/Units 06:11 WBC 11.8 H (4.5-11.0) K/mm3 RBC 3.01 L (3.65-5.03) M/mm3 Hgb 9.0 L (11.8-15.2) gm/dl Hct 28.5 L (35.5-45.6) % Plt Count 81 L (140-440) K/mm3 Comprehensive Metabolic Panel 09/16/16 Range/Units 06:11 Sodium 141 (137-145) mmol/L Potassium 4.5 (3.6-5.0) mmol/L Chloride 98.4 (98-107) mmol/L Carbon Dioxide 26 (22-30) mmol/L BUN 76 H (9-20) mg/dL Creatinine 6.5 H (0.8-1.5) mg/dL Glucose 128 H (75-100) mg/dL Calcium 8.6 (8.4-10.2) mg/dL
[2016-09-16] MEDS ORDERED: NACL 0.9 (PRIMING MACHINE ONLY DIALYSIS) MC ONE (13:30)
--- NOTE | 2016-09-16 13:37 | Event Note ---
Date: 09/16/16 Came to see pt , reportedly on Hd/procedure.Will follow back when available
--- NOTE | 2016-09-16 16:30 | Progress Note ---
Assessment and Plan Assessment and plan: --Sepsis/leukocytosis cultures negative to date, partly due to steroid use WBC trending down, complete antibiotics for 5 days and DC --Septic shock requiring pressors Off Levophed, blood pressures normal range --Chronic respiratory failure requiring noninvasive ventilation Saturating well on nasal cannula oxygen, continue current management --End-stage renal disease on hemodialysis hemodialysis per schedule, urology following --Hypertension; BP normal range antihypertensive needed --History of coronary artery disease is post CABG Patient has mild elevation of troponins, probably secondary to end-stage renal disease, Cardiology following --History of congestive heart failure/diastolic dysfunction continue current cardiac medications, hemodialysis per schedule --Dyslipidemia; continue statin --Full CODE STATUS Closely monitor the patient and adjust the management as needed Physical therapy occupational therapy DC planning. Case management; History Interval history: Seen and evaluated medical records reviewed Feels better, scheduled for hemodialysis today Denies chest pain or shortness of breath Hospitalist Physical - Constitutional Vitals: Temp Pulse Resp BP Pulse Ox 98.1 F 66 20 123/59 98 09/16/16 14:30 09/16/16 14:30 09/16/16 14:30 09/16/16 14:30 09/16/16 09:04 General appearance: Present: no acute distress, well-nourished, other (nasal cannula oxygen) - EENT Eyes: Present: PERRL, EOM intact - Neck Neck: Present: supple, normal ROM - Respiratory Respiratory effort: normal Respiratory: bilateral: diminished, negative: rales, rhonchi, wheezing - Cardiovascular Rhythm: regular Heart Sounds: Present: S1 & S2 - Extremities Extremities: no ischemia, pulses intact, pulses symmetrical Peripheral Pulses: within normal limits - Abdominal General gastrointestinal: soft, non-tender, non-distended, normal bowel sounds - Integumentary Integumentary: Present: clear, warm - Psychiatric Psychiatric: appropriate mood/affect, cooperative - Neurologic Neurologic: CNII-XII intact, moves all extremities Results - Labs CBC & Chem 7: 09/16/16 06:11 09/16/16 06:11 Labs: Laboratory Last Values WBC 11.8 K/mm3 (4.5-11.0) H 09/16/16 06:11 RBC 3.01 M/mm3 (3.65-5.03) L 09/16/16 06:11 Hgb 9.0 gm/dl (11.8-15.2) L 09/16/16 06:11 Hct 28.5 % (35.5-45.6) L 09/16/16 06:11 MCV 95 fl (84-94) H 09/16/16 06:11 MCH 30 pg (28-32) 09/16/16 06:11 MCHC 32 % (32-34) 09/16/16 06:11 RDW 20.9 % (13.2-15.2) H 09/16/16 06:11 Plt Count 81 K/mm3 (140-440) L 09/16/16 06:11 Lymph % (Auto) 2.5 % (13.4-35.0) L 09/13/16 05:10 [place] % (Auto) 6.3 % (0.0-7.3) 09/13/16 05:10 Eos % (Auto) 4.5 % (0.0-4.3) H 09/13/16 05:10 Baso % (Auto) 0.6 % (0.0-1.8) 09/13/16 05:10 Lymph # 0.4 K/mm3 (1.2-5.4) L 09/13/16 05:10 [place] # 0.9 K/mm3 (0.0-0.8) H 09/13/16 05:10 Eos # 0.7 K/mm3 (0.0-0.4) H 09/13/16 05:10 Baso # 0.1 K/mm3 (0.0-0.1) 09/13/16 05:10 Add Manual Diff Complete 09/16/16 06:11 Total Counted 100 09/16/16 06:11 Seg Neutrophils % Bin Tripper Operator 09/16/16 06:11 Seg Neuts % (Manual) 83.0 % (40.0-70.0) H 09/16/16 06:11 Band Neutrophils % 14.0 % 09/16/16 06:11 Lymphocytes % (Manual) 2.0 % (13.4-35.0) L 09/16/16 06:11 Reactive Lymphs % (Man) 0 % 09/16/16 06:11 Monocytes % (Manual) 1.0 % (0.0-7.3) 09/16/16 06:11 Eosinophils % (Manual) 0 % (0.0-4.3) 09/15/16 04:45 Basophils % (Manual) 0 % (0.0-1.8) 09/15/16 04:45 Metamyelocytes % 0 % 09/16/16 06:11 Myelocytes % 0 % 09/16/16 06:11 Promyelocytes % 0 % 09/16/16 06:11 Blast Cells % 0 % 09/16/16 06:11 Nucleated RBC % Not Reportable 09/16/16 06:11 Seg Neutrophils # 12.9 K/mm3 (1.8-7.7) H 09/13/16 05:10 Seg Neutrophils # Man 9.8 K/mm3 (1.8-7.7) H 09/16/16 06:11 Band Neutrophils # 1.7 K/mm3 09/16/16 06:11 Lymphocytes # (Manual) 0.2 K/mm3 (1.2-5.4) L 09/16/16 06:11 Abs React Lymphs (Man) 0.0 K/mm3 09/16/16 06:11 Monocytes # (Manual) 0.1 K/mm3 (0.0-0.8) 09/16/16 06:11 Eosinophils # (Manual) 0.0 K/mm3 (0.0-0.4) 09/16/16 06:11 Basophils # (Manual) 0.0 K/mm3 (0.0-0.1) 09/16/16 06:11 Metamyelocytes # 0.0 K/mm3 09/16/16 06:11 Myelocytes # 0.0 K/mm3 09/16/16 06:11 Promyelocytes # 0.0 K/mm3 09/16/16 06:11 Blast Cells # 0.0 K/mm3 09/16/16 06:11 WBC Morphology Not Reportable 09/16/16 06:11 Hypersegmented Neuts Not Reportable 09/16/16 06:11 Hyposegmented Neuts Not Reportable 09/16/16 06:11 Hypogranular Neuts Not Reportable 09/16/16 06:11 Smudge Cells Not Reportable 09/16/16 06:11 Toxic Granulation Not Reportable 09/16/16 06:11 Toxic Vacuolation Not Reportable 09/16/16 06:11 Dohle Bodies Not Reportable 09/16/16 06:11 Pelger-Huet Anomaly Not Reportable 09/16/16 06:11 Maia Rods Not Reportable 09/16/16 06:11 Platelet Estimate Consistent w auto 09/16/16 06:11 Clumped Platelets Not Reportable 09/16/16 06:11 Plt Clumps, EDTA Not Reportable 09/16/16 06:11 Large Platelets Not Reportable 09/16/16 06:11 Giant Platelets Not Reportable 09/16/16 06:11 Platelet Satelliting Not Reportable 09/16/16 06:11 Plt Morphology Comment Not Reportable 09/16/16 06:11 RBC Morphology Not Reportable 09/16/16 06:11 Dimorphic RBCs Not Reportable 09/16/16 06:11 Polychromasia Few 09/16/16 06:11 Hypochromasia Not Reportable 09/16/16 06:11 Poikilocytosis 1+ 09/16/16 06:11 Anisocytosis 1+ 09/16/16 06:11 Microcytosis Not Reportable 09/16/16 06:11 Macrocytosis Not Reportable 09/16/16 06:11 Spherocytes Not Reportable 09/16/16 06:11 Pappenheimer Bodies Not Reportable 09/16/16 06:11 Sickle Cells Not Reportable 09/16/16 06:11 Target Cells Few 09/16/16 06:11 Tear Drop Cells Not Reportable 09/16/16 06:11 Ovalocytes 1+ 09/16/16 06:11 Helmet Cells Not Reportable 09/16/16 06:11 [place] Bodies Not Reportable 09/16/16 06:11 [place] Rings Not Reportable 09/16/16 06:11 Toño Cells Not Reportable 09/16/16 06:11 Bite Cells Not Reportable 09/16/16 06:11 Crenated Cell Not Reportable 09/16/16 06:11 Elliptocytes Few 09/16/16 06:11 Acanthocytes (Spur) Not Reportable 09/16/16 06:11 Rouleaux Not Reportable 09/16/16 06:11 Hemoglobin C Crystals Not Reportable 09/16/16 06:11 Schistocytes Not Reportable 09/16/16 06:11 Malaria parasites Not Reportable 09/16/16 06:11 Nriav Bodies Not Reportable 09/16/16 06:11 Hem Pathologist Commnt No 09/16/16 06:11 PT 16.3 Sec. (12.2-14.9) H 09/11/16 16:22 INR 1.32 (0.87-1.13) H 09/11/16 16:22 APTT 29.7 Sec. (24.2-36.6) 09/11/16 16:22 D-Dimer 3181.50 ng/mlDDU (0-234) H 09/11/16 16:22 POC ABG pH 7.336 (7.35-7.45) L 09/14/16 10:32 POC ABG pCO2 45.2 (35-45) H 09/14/16 10:32 POC ABG pO2 62 (80-105) L 09/14/16 10:32 POC ABG HCO3 24.2 09/14/16 10:32 POC ABG Total CO2 26 09/14/16 10:32 POC ABG O2 Sat 90 09/14/16 10:32 POC ABG Base Excess -2 09/14/16 10:32 FiO2 32 % 09/14/16 10:32 Sodium 141 mmol/L (137-145) 09/16/16 06:11 Potassium 4.5 mmol/L (3.6-5.0) 09/16/16 06:11 Chloride 98.4 mmol/L (98-107) 09/16/16 06:11 Carbon Dioxide 26 mmol/L (22-30) 09/16/16 06:11 Anion Gap 21 mmol/L 09/16/16 06:11 BUN 76 mg/dL (9-20) H 09/16/16 06:11 Creatinine 6.5 mg/dL (0.8-1.5) H 09/16/16 06:11 Estimated GFR 8 ml/min 09/16/16 06:11 BUN/Creatinine Ratio 11.69 % 09/16/16 06:11 Glucose 128 mg/dL (75-100) H 09/16/16 06:11 POC Glucose 239 (70-105) H 09/14/16 23:38 Lactic Acid 0.60 mmol/L (0.7-2.0) L 09/12/16 10:14 Calcium 8.6 mg/dL (8.4-10.2) 09/16/16 06:11 Phosphorus 5.10 mg/dL (2.5-4.5) H 09/14/16 18:43 Magnesium 2.10 mg/dL (1.7-2.3) 09/15/16 04:45 Total Bilirubin 0.40 mg/dL (0.1-1.2) 09/13/16 05:10 Direct Bilirubin < 0.2 mg/dL (0-0.2) 09/13/16 05:10 Indirect Bilirubin 0.2 mg/dL 09/13/16 05:10 AST 12 units/L (5-40) 09/13/16 05:10 ALT 14 units/L (7-56) 09/13/16 05:10 Alkaline Phosphatase 74 units/L (35-129) 09/13/16 05:10 Total Creatine Kinase 11 units/L (55-170) L 09/12/16 10:14 CK-MB (CK-2) 1.9 ng/mL (0.0-4.0) 09/12/16 10:14 CK-MB (CK-2) Rel Index 17.2 (0-4) H 09/12/16 10:14 Troponin T 0.071 ng/mL (0.00-0.029) H D 09/12/16 10:14 Total Protein 5.2 g/dL (6.3-8.2) L 09/13/16 05:10 Albumin 2.8 g/dL (3.9-5) L 09/13/16 05:10 Albumin/Globulin Ratio 1.2 % 09/13/16 05:10 Triglycerides 85 mg/dL (2-149) 09/11/16 16:22 Cholesterol 77 mg/dL (50-199) 09/11/16 16:22 LDL Cholesterol Direct 17 mg/dL (50-130) L 09/11/16 16:22 HDL Cholesterol 43 mg/dL (40-59) 09/11/16 16:22 Cholesterol/HDL Ratio 1.79 % 09/11/16 16:22 PTH Intact 182.1 pg/mL (15-65) H 09/14/16 18:43 Urine Color Yellow (Yellow) 09/12/16 01:03 Urine Turbidity Clear (Clear) 09/12/16 01:03 Urine pH 6.0 (5.0-7.0) 09/12/16 01:03 Ur Specific [place] 1.010 (1.003-1.030) 09/12/16 01:03 Urine Protein 30 mg/dl mg/dL (Negative) 09/12/16 01:03 Urine Glucose (UA) 50 mg/dL (Negative) 09/12/16 01:03 Urine Ketones Neg mg/dL (Negative) 09/12/16 01:03 Urine Blood Neg (Negative) 09/12/16 01:03 Urine Nitrite Neg (Negative) 09/12/16 01:03 Urine Bilirubin Neg (Negative) 09/12/16 01:03 Urine Urobilinogen < 2.0 mg/dL (<2.0) 09/12/16 01:03 Ur Leukocyte Esterase Neg (Negative) 09/12/16 01:03 Urine WBC (Auto) 4.0 /HPF (0.0-6.0) 09/12/16 01:03 Urine RBC (Auto) 5.0 /HPF (0.0-6.0) 09/12/16 01:03 U Epithel Cells (Auto) < 1.0 /HPF (0-13.0) 09/12/16 01:03 Urine Bacteria (Auto) 1+ /HPF (Negative) 09/12/16 01:03 Random Vancomycin 12.6 ug/mL (0-40.0) 09/14/16 08:23
[2016-09-17] MEDS: ZOSYN/NS 2.25 GM/50ML 2.25 GM/50 ML BAG IV SCH (06:30)
[2016-09-17] MEDS: ATROVENT IH SCH (07:47)
[2016-09-17] MEDS ORDERED: PROVENTIL IH PRN (07:52)
--- NOTE | 2016-09-17 09:03 | Progress Note ---
Assessment and Plan - Patient Problems (1) ESRD (end stage renal disease) Current Visit: Yes Status: Acute (2) Physical deconditioning Current Visit: Yes Status: Chronic (3) Anemia in CKD (chronic kidney disease) Current Visit: Yes Status: Chronic Qualifiers: Chronic kidney disease stage: C (4) COPD (chronic obstructive pulmonary disease) Current Visit: Yes Status: Chronic Qualifiers: COPD type: unspecified COPD Chronic bronchitis type: C Emphysema type: E Qualified Code(s): J44.9 - Chronic obstructive pulmonary disease, unspecified (5) Congestive heart failure (CHF) Current Visit: Yes Status: Chronic Qualifiers: Congestive heart failure type: diastolic Congestive heart failure chronicity: acute on chronic Qualified Code(s): I50.33 - Acute on chronic diastolic (congestive) heart failure (6) Acute and chronic respiratory failure ([id number]) Current Visit: No Status: Acute Qualifiers: Respiratory failure complication: R (7) Acute on chronic diastolic heart failure Current Visit: No Status: Acute Subjective Date of service: 09/17/16 Objective - Vital Signs Vital signs: Vital Signs - 12hr 09/16/16 09/17/16 09/17/16 23:00 00:00 04:00 Temperature 97.5 F L 97.5 F L Pulse Rate 68 Pulse Rate [ Anterior Bilateral Throughout] Pulse Rate [ 62 67 From Monitor] Respiratory 20 18 20 Rate Respiratory Rate [Anterior Bilateral Throughout] Blood Pressure 115/58 122/57 [Left Arm] O2 Sat by Pulse 98 94 95 Oximetry 09/17/16 09/17/16 09/17/16 07:46 07:48 07:51 Temperature Pulse Rate Pulse Rate [ 64 Anterior Bilateral Throughout] Pulse Rate [ From Monitor] Respiratory Rate Respiratory 16 Rate [Anterior Bilateral Throughout] Blood Pressure [Left Arm] O2 Sat by Pulse 100 100 Oximetry 09/17/16 07:54 Temperature Pulse Rate Pulse Rate [ 62 Anterior Bilateral Throughout] Pulse Rate [ From Monitor] Respiratory Rate Respiratory 16 Rate [Anterior Bilateral Throughout] Blood Pressure [Left Arm] O2 Sat by Pulse Oximetry - Lab 09/16/16 06:11 09/16/16 06:11 Most recent lab results Calcium 8.6 mg/dL (8.4-10.2) 09/16/16 06:11 Phosphorus 5.10 mg/dL (2.5-4.5) H 09/14/16 18:43 Magnesium 2.10 mg/dL (1.7-2.3) 09/15/16 04:45
[2016-09-17] MEDS: HALFPRIN EC PO SCH (11:24)
[2016-09-17] MEDS: PHOSLO PO SCH (11:24)
[2016-09-17] MEDS: Renal Caps PO SCH (11:25)
--- NOTE | 2016-09-17 12:20 | Discharge Summary ---
Providers - Providers Date of Admission: 09/11/16 19:48 Date of discharge: 09/17/16 Attending physician: GUY HAWK 09/11/16 Consult to Cardiac Rehabilitation [CONS] Routine Reason For Exam: Phase I 09/12/16 00:44 Consult to Physician [CONS] Routine Consulting Provider: SHANNEN TOLENTINO Reason For Exam: cc Place consult to:: CC INDIRECT SALES REPRESENTATIVE Notified:: Y Was contact made?: Yes If yes, spoke with:: DR TOLENTINO Time called:: 10:00 09/12/16 19:03 Consult to Physician [CONS] Routine Consulting Provider: RA CARTWRIGHT Reason For Exam: ESRD Place consult to:: sonar subsystem equipment operator Notified:: Yes Phone number called:: [phone] Was contact made?: Yes If yes, spoke with:: Office staff Time called:: 09:40 09/12/16 19:29 Consult to Wound/ET Nurse [CONS] Routine Reason For Exam: wound eval sacral skin tear POA 09/13/16 10:28 Consult to Physician [CONS] Routine Consulting Provider: PRATIK SILVESTRE Reason For Exam: brief Unresponsiveness during HD/2 days ago/CAD Place consult to:: Dr. Silvestre Notified:: yes Was contact made?: Yes If yes, spoke with:: Savanna White Rn 09/15/16 13:10 Physical Therapy Evaluation and Treat [CONS] Routine Comment: Reason For Exam: debility/unsteady gait Primary care physician: DEAL ARCHITECT Hospitalization Condition: Critical Disposition: DC/[place]-03 [facility] CERT Exam - Constitutional Vitals: Temp Pulse Resp BP Pulse Ox 97.6 F 63 20 132/58 98 09/17/16 07:50 09/17/16 09:00 09/17/16 09:00 09/17/16 07:50 09/17/16 09:00 Plan Activity: advance as tolerated, fall precautions Diet: other (cardiac diet) Special Instructions: physical therapy, occupational therapy Additional Instructions: oxygen 2-3 lt via NC ,titrate o2 sat > 90%. Cpap at night. Cardiology discontinued amiodarone ,will continue coreg Follow up with: PRIMARY CARE,MD [Primary Care Provider] - 3-5 Days Prescriptions: Levofloxacin [Levaquin TAB] 500 mg PO Q48HR 5 Days Prednisone [predniSONE 10 mg (6-Day Pack, 21 Tabs)] 10 mg PO .TAPER #1 tab.ds.pk
--- NOTE | 2016-09-17 12:25 | Progress Note ---
Assessment and Plan Acute respiratory failure. Currently compensated COPD. Stable at present time controlled Hypertension. Resolved Chronic renal disease Recommendations Continue oxygen support Spiriva 1 capsule inhaled daily Advair 1 inhalations twice a day outpatient update on his sleep apnea status. By history, he was previously on CPAP therapy but discontinued treatment. Discussed this with patient this can be evaluated at the office, was discussed also with hospitalist. Will sign off. Subjective Date of service: 09/17/16 Principal diagnosis: acute upper respiratory failure, COPD, history of sleep apnea Interval history: Patient reports no respiratory complaints at the present time. Feels comfortable with his current oxygen. No wheezing Objective Vital Signs - 12hr 09/17/16 09/17/16 09/17/16 04:00 07:46 07:48 Temperature 97.5 F L Pulse Rate [ 64 Anterior Bilateral Throughout] Pulse Rate [ 67 From Monitor] Pulse Rate [ Left Radial] Respiratory 20 Rate Respiratory 16 Rate [Anterior Bilateral Throughout] Blood Pressure 122/57 [Left Arm] O2 Sat by Pulse 95 100 Oximetry 09/17/16 09/17/16 09/17/16 07:50 07:51 07:54 Temperature 97.6 F Pulse Rate [ 62 Anterior Bilateral Throughout] Pulse Rate [ From Monitor] Pulse Rate [ 62 Left Radial] Respiratory 20 Rate Respiratory 16 Rate [Anterior Bilateral Throughout] Blood Pressure 132/58 [Left Arm] O2 Sat by Pulse 91 100 Oximetry 09/17/16 09:00 Temperature Pulse Rate [ Anterior Bilateral Throughout] Pulse Rate [ 63 From Monitor] Pulse Rate [ Left Radial] Respiratory 20 Rate Respiratory Rate [Anterior Bilateral Throughout] Blood Pressure [Left Arm] O2 Sat by Pulse 98 Oximetry Constitutional: no acute distress ENT: oropharynx moist Neck: supple Effort: mildly labored Ascultation: Bilateral: clear, diminished breath sounds Gastrointestinal: normoactive bowel sounds, non-distended Extremities: no cyanosis, other (current skin wounds) CBC and BMP: 09/16/16 06:11 09/16/16 06:11 ABG, PT/INR, D-dimer: ABG POC ABG pH 7.336 (7.35-7.45) L 09/14/16 10:32 POC ABG pCO2 45.2 (35-45) H 09/14/16 10:32 POC ABG pO2 62 (80-105) L 09/14/16 10:32 POC ABG HCO3 24.2 09/14/16 10:32 POC ABG Total CO2 26 09/14/16 10:32 POC ABG O2 Sat 90 09/14/16 10:32 PT/INR, D-dimer PT 16.3 Sec. (12.2-14.9) H 09/11/16 16:22 INR 1.32 (0.87-1.13) H 09/11/16 16:22 D-Dimer 3181.50 ng/mlDDU (0-234) H 09/11/16 16:22 Abnormal lab findings: Abnormal Labs 09/11/16 09/11/16 09/11/16 20:02 20:02 23:16 WBC RBC Hgb Hct MCV MCHC RDW Plt Count Lymph % (Auto) Eos % (Auto) Lymph # Esmeralda # Eos # Seg Neutrophils % Seg Neuts % (Manual) Lymphocytes % (Manual) Seg Neutrophils # Seg Neutrophils # Man Lymphocytes # (Manual) POC ABG pH POC ABG pCO2 61.0 H POC ABG pO2 151 H BUN Creatinine Glucose POC Glucose Lactic Acid 0.50 L Calcium Phosphorus Total Creatine Kinase 983 H CK-MB (CK-2) 16.9 H CK-MB (CK-2) Rel Index Troponin T 0.053 H D Total Protein Albumin PTH Intact 09/12/16 09/12/16 09/13/16 10:14 10:14 01:11 WBC RBC Hgb Hct MCV MCHC RDW Plt Count Lymph % (Auto) Eos % (Auto) Lymph # Esmeralda # Eos # Seg Neutrophils % Seg Neuts % (Manual) Lymphocytes % (Manual) Seg Neutrophils # Seg Neutrophils # Man Lymphocytes # (Manual) POC ABG pH 7.187 L POC ABG pCO2 79.8 H POC ABG pO2 BUN Creatinine Glucose POC Glucose Lactic Acid 0.60 L Calcium Phosphorus Total Creatine Kinase 11 L CK-MB (CK-2) CK-MB (CK-2) Rel Index 17.2 H Troponin T 0.071 H D Total Protein Albumin PTH Intact 09/13/16 09/13/16 09/13/16 05:10 05:10 07:29 WBC 14.9 H RBC 3.23 L Hgb 9.7 L Hct 31.9 L MCV 99 H MCHC 30 L RDW 21.2 H Plt Count 138 L Lymph % (Auto) 2.5 L Eos % (Auto) 4.5 H Lymph # 0.4 L Esmeralda # 0.9 H Eos # 0.7 H Seg Neutrophils % 86.1 H Seg Neuts % (Manual) Lymphocytes % (Manual) Seg Neutrophils # 12.9 H Seg Neutrophils # Man Lymphocytes # (Manual) POC ABG pH 7.174 L POC ABG pCO2 77.8 H POC ABG pO2 BUN 29 H Creatinine 4.0 H D Glucose 74 L POC Glucose Lactic Acid Calcium Phosphorus Total Creatine Kinase CK-MB (CK-2) CK-MB (CK-2) Rel Index Troponin T Total Protein 5.2 L Albumin 2.8 L PTH Intact 09/13/16 09/13/16 09/13/16 10:42 15:55 20:10 WBC RBC Hgb Hct MCV MCHC RDW Plt Count Lymph % (Auto) Eos % (Auto) Lymph # Esmeralda # Eos # Seg Neutrophils % Seg Neuts % (Manual) Lymphocytes % (Manual) Seg Neutrophils # Seg Neutrophils # Man Lymphocytes # (Manual) POC ABG pH 7.234 L 7.256 L 7.287 L POC ABG pCO2 65.2 H 64.3 H 58.4 H POC ABG pO2 62 L 61 L 23 L BUN Creatinine Glucose POC Glucose Lactic Acid Calcium Phosphorus Total Creatine Kinase CK-MB (CK-2) CK-MB (CK-2) Rel Index Troponin T Total Protein Albumin PTH Intact 09/13/16 09/14/16 09/14/16 20:40 08:23 08:23 WBC RBC 2.89 L Hgb 9.0 L Hct 27.7 L MCV 96 H D MCHC RDW 20.9 H Plt Count 102 L Lymph % (Auto) Eos % (Auto) Lymph # Esmeralda # Eos # Seg Neutrophils % Seg Neuts % (Manual) 91.0 H Lymphocytes % (Manual) 0 L Seg Neutrophils # Seg Neutrophils # Man 8.2 H Lymphocytes # (Manual) 0.0 L POC ABG pH 7.291 L POC ABG pCO2 54.4 H POC ABG pO2 64 L BUN 45 H Creatinine 5.2 H Glucose POC Glucose Lactic Acid Calcium Phosphorus Total Creatine Kinase CK-MB (CK-2) CK-MB (CK-2) Rel Index Troponin T Total Protein Albumin PTH Intact 09/14/16 09/14/16 09/14/16 10:32 18:43 18:43 WBC RBC Hgb Hct MCV MCHC RDW Plt Count Lymph % (Auto) Eos % (Auto) Lymph # Esmeralda # Eos # Seg Neutrophils % Seg Neuts % (Manual) Lymphocytes % (Manual) Seg Neutrophils # Seg Neutrophils # Man Lymphocytes # (Manual) POC ABG pH 7.336 L POC ABG pCO2 45.2 H POC ABG pO2 62 L BUN 52 H Creatinine 5.6 H Glucose 101 H POC Glucose Lactic Acid Calcium 8.1 L Phosphorus 5.10 H Total Creatine Kinase CK-MB (CK-2) CK-MB (CK-2) Rel Index Troponin T Total Protein Albumin PTH Intact 182.1 H 09/14/16 09/15/16 09/15/16 23:38 04:45 04:45 WBC 12.4 H RBC 2.82 L Hgb 8.5 L Hct 26.9 L MCV 95 H MCHC RDW 21.3 H Plt Count 96 L Lymph % (Auto) Eos % (Auto) Lymph # Esmeralda # Eos # Seg Neutrophils % Seg Neuts % (Manual) 87.0 H Lymphocytes % (Manual) 2.0 L Seg Neutrophils # Seg Neutrophils # Man 10.8 H Lymphocytes # (Manual) 0.2 L POC ABG pH POC ABG pCO2 POC ABG pO2 BUN 62 H Creatinine 5.9 H Glucose 170 H POC Glucose 239 H Lactic Acid Calcium 8.3 L Phosphorus Total Creatine Kinase CK-MB (CK-2) CK-MB (CK-2) Rel Index Troponin T Total Protein Albumin PTH Intact 09/16/16 09/16/16 06:11 06:11 WBC 11.8 H RBC 3.01 L Hgb 9.0 L Hct 28.5 L MCV 95 H MCHC RDW 20.9 H Plt Count 81 L Lymph % (Auto) Eos % (Auto) Lymph # Esmeralda # Eos # Seg Neutrophils % Seg Neuts % (Manual) 83.0 H Lymphocytes % (Manual) 2.0 L Seg Neutrophils # Seg Neutrophils # Man 9.8 H Lymphocytes # (Manual) 0.2 L POC ABG pH POC ABG pCO2 POC ABG pO2 BUN 76 H Creatinine 6.5 H Glucose 128 H POC Glucose Lactic Acid Calcium Phosphorus Total Creatine Kinase CK-MB (CK-2) CK-MB (CK-2) Rel Index Troponin T Total Protein Albumin PTH Intact
--- NOTE | 2016-09-17 13:45 | Progress Note ---
Assessment and Plan Acute Respiratory failure d/t volume overload Hypotension during HD Elevated D-dimer no evidence of PE by V\Q scan ESRD on HD Hx of COPD Hx of CAD s/p 3 vessel CABG and PCI Hx of paroxysmal Afib on amiodarone as an outpatient; now discontinued d/t pulmonary disease not a candidate for oral anticoagulation d/t prior hx of subdural hematoma Presence of PPM ([facility]) Echo reports a moderate to severe TR with a dilated RA and evidence of severe pulmonary hypertension. There is a moderate aortic stenosis with a preserved LVEF 55-60%. Conservative cardiac management. Subjective Date of service: 09/17/16 Principal diagnosis: acute upper respiratory failure, COPD, history of sleep apnea Interval history: Patient is resting in bed comfortably. He denies chest pain and shortness of breath. Objective Vital Signs Temp Pulse Pulse Pulse Pulse Resp Resp 09/17/16 13:19 68 16 09/17/16 13:11 66 16 09/17/16 13:00 63 09/17/16 10:00 09/17/16 09:00 63 20 09/17/16 07:54 62 16 09/17/16 07:51 09/17/16 07:50 97.6 F 62 20 09/17/16 07:48 64 16 09/17/16 07:46 09/17/16 04:00 97.5 F L 67 20 09/17/16 00:00 97.5 F L 62 18 09/16/16 23:00 68 20 09/16/16 20:00 98.4 F 66 20 09/16/16 19:51 68 18 09/16/16 19:37 09/16/16 19:36 66 18 09/16/16 17:05 09/16/16 16:30 98.6 F 66 18 09/16/16 14:30 98.1 F 66 20 09/16/16 14:15 67 09/16/16 14:00 66 09/16/16 13:45 65 Resp BP BP Pulse Ox 09/17/16 13:19 09/17/16 13:11 09/17/16 13:00 09/17/16 10:00 20 09/17/16 09:00 98 09/17/16 07:54 09/17/16 07:51 100 09/17/16 07:50 132/58 91 09/17/16 07:48 09/17/16 07:46 100 09/17/16 04:00 122/57 95 09/17/16 00:00 115/58 94 09/16/16 23:00 98 09/16/16 20:00 127/61 95 09/16/16 19:51 09/16/16 19:37 96 09/16/16 19:36 09/16/16 17:05 95 09/16/16 16:30 132/62 98 09/16/16 14:30 123/59 09/16/16 14:15 123/56 09/16/16 14:00 112/55 09/16/16 13:45 121/52 - Physical Examination General: No Apparent Distress HEENT: Positive: PERRL Neck: Positive: trachea midline Cardiac: Positive: Reg Rate and Rhythm Lungs: Positive: Decreased Breath Sounds
[2016-09-17] MEDS ORDERED: DUONEB 0.5 MG-3 MG/3 ML SOLN IH SCH (14:00)
[2016-09-17 16:38] LABS: Heparin-Induced Platelet Antib Negative (Negative); Unfractionated Heparin Negative (Negative)
[2016-09-17 19:39] VITALS: BP 127/61
[2016-09-17] MEDS ORDERED: COREG PO SCH (22:00)
[2016-09-18] MEDS ORDERED: LEVAQUIN PO SCH (10:00)
== END 2016-09-17 16:20 | DRG 871 ==
LOC: ED 15:57 → 4A 19:48 → CC1 09-12 01:17 → 4A 09-15 12:47
PROVIDERS: ADMIT Internal Medicine; ATTEND Internal Medicine
PROC: 5A09357 Assistance with Respiratory Ventilation, Less than 24 Consecutive Hours, Continuous Positive Airway Pressure (ICD-10-PCS; principal; 2016-09-11)
PROC: 5A1D00Z (ICD-10-PCS; 2016-09-11)
PROC: 4A033R1 Measurement of Arterial Saturation, Peripheral, Percutaneous Approach (ICD-10-PCS; 2016-09-11)
PROC: 3E0234Z Introduction of Serum, Toxoid and Vaccine into Muscle, Percutaneous Approach (ICD-10-PCS; 2016-09-11)
PROC: 06HM33Z Insertion of Infusion Device into Right Femoral Vein, Percutaneous Approach (ICD-10-PCS; 2016-09-12)
PROC: 05HQ33Z Insertion of Infusion Device into Left External Jugular Vein, Percutaneous Approach (ICD-10-PCS; 2016-09-14)
DX: A41.9 Sepsis, unspecified organism (principal); J96.20 Acute and chronic respiratory failure, unspecified whether with hypoxia or hypercapnia; G93.41 Metabolic encephalopathy; I50.33 Acute on chronic diastolic (congestive) heart failure; R65.21 Severe sepsis with septic shock; N18.6 End stage renal disease; J96.02 Acute respiratory failure with hypercapnia; I13.2 Hypertensive heart and chronic kidney disease with heart failure and with stage 5 chronic kidney disease, or end stage renal disease; J44.9 Chronic obstructive pulmonary disease, unspecified; E78.5 Hyperlipidemia, unspecified; F17.200 Nicotine dependence, unspecified, uncomplicated; I25.10 Atherosclerotic heart disease of native coronary artery without angina pectoris; I95.9 Hypotension, unspecified; I35.0 Nonrheumatic aortic (valve) stenosis; I07.1 Rheumatic tricuspid insufficiency; I27.2 Other secondary pulmonary hypertension; I48.0 Paroxysmal atrial fibrillation; D63.1 Anemia in chronic kidney disease; Z99.2 Dependence on renal dialysis; Z95.810 Presence of automatic (implantable) cardiac defibrillator; Z82.49 Family history of ischemic heart disease and other diseases of the circulatory system; Z95.1 Presence of aortocoronary bypass graft
CPT/HCPCS: 36415; 36600; 70450; 71010; 78582; 80048; 80053; 80061; 80074; 80202; 81001; 82140; 82550; 82553; 82803; 82962; 83735; 83970; 84100; 84484; 85007; 85025; 85379; 85610; 85730; 86022; 87040; 90686; 90732; 93005; 93010; 93306; 94640; 94660; 94760; 96365; 96366; 96367; 99291; 99406; A9270-GY; A9540; A9558; G8978-GP; G8979-GP; J1644; J1956; J2543; J2920; J3370; J7030; J7040; J7050